=== PATIENT | male | born 1940 | race Caucasian/White ===

== ENCOUNTER 2017-03-09 12:48 | Emergency (ER) | payer MEDICARE, OTHER ==
[2017-03-09 13:00] VITALS: BP 132/68
[2017-03-09] MEDS ORDERED: Sodium Chloride 0.9% 10 ML Syringe FLUSH PRN (13:11)
--- NOTE | 2017-03-09 13:30 | EDM.PDOC ---
ED HPI GENERAL MEDICAL PROBLEM - General Chief Complaint: Upper Extremity Injury/Pain Stated Complaint: RED L EYE, INFECTION ON R HAND Time Seen by Provider: 03/09/17 13:00 Source of Information: Reports: Patient, RN Notes Reviewed - History of Present Illness INITIAL COMMENTS - FREE TEXT/NARRATIVE: 76-year-old male comes in with redness, swelling of right wrist, distal forearm and right elbow. He states he tripped and fell walking in the dark early Saturday morning about 3-1/2 days ago. He states he suffered skin tear injuries to the wrist and elbow. He also did suffer a small laceration over aspect right wrist. The areas of injury wrist and elbow have become much more inflamed, swollen and erythematous over the last 2 days. He now has some slight drainage of fluid from the dorsal and ulnar aspect of the right wrist. He also did suffer quite severe redness of the conjunctiva of his left eye. He states it felt itchy that first day but no further discomfort. No visual difficulty. Headache nausea or vomiting. Right Arm Pain Score (Numeric/FACES): 2 - Related Data Allergies Allergy/AdvReac Type Severity Reaction Status Date / Time No Known Allergies Allergy Verified 09/12/15 16:00 Home Meds: Home Meds Ascorbic Acid [Vitamin C] 500 mg PO DAILY 09/12/15 [History] Aspirin [[place] Aspirin] 81 mg PO DAILY 09/12/15 [History] Cholecalciferol (Vitamin D3) [Vitamin D3] 2,000 units PO DAILY 09/12/15 [History ] Cyanocobalamin/Folic Acid [Vitamin E62-Wymfx Acid] 1 tab PO DAILY 09/12/15 [ History] Diltiazem HCl [Dilt-XR] 240 mg PO DAILY 09/12/15 [History] Docusate Sodium [Colace] 100 mg PO DAILY 09/12/15 [History] Ferrous Sulfate 325 mg PO BID 09/12/15 [History] Furosemide [Furosemide] 100 mg PO DAILY 09/12/15 [History] Metolazone [Metolazone] 2.5 mg PO TUFR 09/12/15 [History] Multivitamin [Multiple Vitamins] 1 tab PO DAILY 09/12/15 [History] [place]-3 Fatty Acids [Fish Oil] 1 tab PO BID 09/12/15 [History] Omeprazole [Omeprazole] 1 tab PO BID 09/12/15 [History] Potassium Chloride 20 meq PO QID 09/12/15 [History] Propranolol HCl 1 tab PO BID 09/12/15 [History] Triamcinolone Acetonide [Triamcinolone Acetonide 0.1% Crm] 1 applic PO BID 09/11 [History] Vitamin E 400 unit PO DAILY 09/12/15 [History] Warfarin Sodium [Warfarin Sodium] 3 mg PO SUMOWETHFRSA 09/12/15 [History] Warfarin Sodium [Warfarin Sodium] 4.5 mg PO TU 09/12/15 [History] Clobetasol Propionate [Temovate] 1 applic TOP BID 03/09/17 [History] Simvastatin [Zocor] 20 mg PO DAILY 03/09/17 [History] Past Medical History HEENT History: Reports: Hard of Hearing, Impaired Vision Cardiovascular History: Reports: Afib, Hypertension, [place], Pacemaker Respiratory History: Reports: Pneumonia, Recurrent Gastrointestinal History: Reports: GERD Neurological History: Reports: TIA Dermatologic History: Reports: Psoriasis - Past Surgical History HEENT Surgical History: Reports: Other (See Below) Other HEENT Surgeries/Procedures: laser surgery for loss of vision Cardiovascular Surgical History: Reports: Valve Replacement GI Surgical History: Reports: Cholecystectomy Social & Family History - Tobacco Use Smoking Status *Q: Never Smoker - Caffeine Use Caffeine Use: Reports: Coffee, Soda - Recreational Drug Use Recreational Drug Use: No Review of Systems - Review of Systems Review Of Systems: See Below Constitutional: Denies: Chills, Fever Eyes: Reports: Other (Severe redness conjunctiva left eye). Denies: Vision Change Ears: Reports: No Symptoms Nose: Reports: No Symptoms Mouth/Throat: Reports: No Symptoms Respiratory: Denies: Shortness of Breath, Pleuritic Chest Pain Cardiovascular: Denies: Chest Pain GI/Abdominal: Denies: Abdominal Pain, Nausea, Vomiting Musculoskeletal: Reports: Other (Erythema swelling right wrist, distal forearm and right elbow) Neurological: Denies: Numbness, Tingling, Trouble Speaking, Weakness ED EXAM, GENERAL - Physical Exam Exam: See Below General Appearance: Alert, No Apparent Distress Eye Exam: Left Eye: Other (Quite severe conjunctival hemorrhage left eye involving all aspects of the conjunctiva) Ears: Normal External Exam Nose: Normal Inspection Throat/Mouth: Normal Inspection Head: No: Facial Swelling, Facial Tenderness Neck: Supple Respiratory/Chest: No Respiratory Distress, Lungs Clear, Normal Breath Sounds Cardiovascular: Irregularly Irregular GI/Abdominal: Soft, Non-Tender Extremities: Normal Range of Motion, Redness (Severe erythema compatible with cellulitis diffusely of the right elbow and also right distal forearm and right wrist with areas of slight weeping right dorsal and lateral wrist), Other (No bony tenderness of the upper or lower extremities). No: Leg Pain Course - Vital Signs Last Recorded V/S: Last Vital Signs Temp 97.7 F 03/09/17 12:58 Pulse 71 03/09/17 12:58 Resp 20 03/09/17 12:58 BP 132/68 03/09/17 12:58 Pulse Ox 95 03/09/17 12:58 - Orders/Labs/Meds Orders: Active Orders 24 hr Category Date Time Status Peripheral IV Care [RC] . DIRECTED Care 03/09/17 13:12 Active CULTURE WOUND [RM] Stat Lab 03/09/17 14:00 Received Peripheral IV Insertion Adult [OM.PC] Stat Oth 03/09/17 13:11 Ordered Labs: Laboratory Tests 03/09/17 03/09/17 03/09/17 Range/Units 13:35 13:35 13:35 WBC 5.40 (4.23-9.07) K/mm3 RBC 3.90 L (4.63-6.08) M/mm3 Hgb 13.7 (13.7-17.5) gm/L Hct 38.7 L (40.1-51.0) % MCV 99.2 H (79.0-92.2) fl MCH 35.1 H (25.7-32.2) pg MCHC 35.4 (32.2-35.5) g/dl RDW Std Deviation 46.2 H (35.1-43.9) fL Plt Count 191 (163-337) K/mm3 MPV 9.0 L (9.4-12.3) fl Neutrophils % (Manual) 71 H (40-60) % Band Neutrophils % 0 (0-10) % Lymphocytes % (Manual) 18 L (20-40) % Atypical Lymphs % 0 % Monocytes % (Manual) 7 (2-10) % Eosinophils % (Manual) 4 (0.8-7.0) % Basophils % (Manual) 0 L (0.2-1.2) Platelet Estimate Adequate Anisocytosis 1+ slight Macrocytosis 1+ slight Ovalocytes 1+ slight RBC Morph Comment Not Reportable PT (8.0-13.0) SECONDS INR Sodium 132 L (136-145) mEq/L Potassium 2.8 L (3.5-5.1) mEq/L Chloride 91 L (98-107) mEq/L Carbon Dioxide 35 H (21-32) mEq/L Anion Gap 8.8 (5-15) BUN 10 (7-18) mg/dL Creatinine 1.0 (0.7-1.3) mg/dL Est Cr Clr Drug Dosing 65.90 mL/min Estimated GFR (MDRD) > 60 (>60) mL/min BUN/Creatinine Ratio 10.0 L (14-18) Glucose 127 H (83-115) mg/dL Calcium 8.9 (8.5-10.1) mg/dL Total Bilirubin 1.9 H (0.2-1.0) mg/dL AST 47 H (15-37) U/L ALT 35 (16-63) U/L Alkaline Phosphatase 139 H (46-116) U/L C-Reactive Protein 3.3 H* (<1.0) mg/dL Total Protein 7.6 (6.4-8.2) g/dl Albumin 3.5 (3.4-5.0) g/dl Globulin 4.1 gm/dL Albumin/Globulin Ratio 0.9 L (1-2) 03/09/17 Range/Units 13:35 WBC (4.23-9.07) K/mm3 RBC (4.63-6.08) M/mm3 Hgb (13.7-17.5) gm/L Hct (40.1-51.0) % MCV (79.0-92.2) fl MCH (25.7-32.2) pg MCHC (32.2-35.5) g/dl RDW Std Deviation (35.1-43.9) fL Plt Count (163-337) K/mm3 MPV (9.4-12.3) fl Neutrophils % (Manual) (40-60) % Band Neutrophils % (0-10) % Lymphocytes % (Manual) (20-40) % Atypical Lymphs % % Monocytes % (Manual) (2-10) % Eosinophils % (Manual) (0.8-7.0) % Basophils % (Manual) (0.2-1.2) Platelet Estimate Anisocytosis Macrocytosis Ovalocytes RBC Morph Comment PT 21.4 H (8.0-13.0) SECONDS INR 1.89 Sodium (136-145) mEq/L Potassium (3.5-5.1) mEq/L Chloride (98-107) mEq/L Carbon Dioxide (21-32) mEq/L Anion Gap (5-15) BUN (7-18) mg/dL Creatinine (0.7-1.3) mg/dL Est Cr Clr Drug Dosing mL/min Estimated GFR (MDRD) (>60) mL/min BUN/Creatinine Ratio (14-18) Glucose (83-115) mg/dL Calcium (8.5-10.1) mg/dL Total Bilirubin (0.2-1.0) mg/dL AST (15-37) U/L ALT (16-63) U/L Alkaline Phosphatase (46-116) U/L C-Reactive Protein (<1.0) mg/dL Total Protein (6.4-8.2) g/dl Albumin (3.4-5.0) g/dl Globulin gm/dL Albumin/Globulin Ratio (1-2) Meds: Medications Discontinued Medications Generic Name Dose Route Start Last Admin Trade Name Freq PRN Reason Stop Dose Admin Doxycycline Hyclate 200 mg 03/09/17 14:02 03/09/17 14:18 Vibramycin PO 03/09/17 14:03 200 mg ONETIME ONE Administration Cefazolin Sodium/Dextrose 1 gm 50 mls @ 100 mls/hr 03/09/17 13:48 03/09/17 14 :10 / Premix IV 03/09/17 14:17 100 mls/hr ONETIME ONE Administration Potassium Chloride 40 meq 03/09/17 14:38 03/09/17 15:38 Klor-Con M20 PO 03/09/17 14:39 40 meq ONETIME ONE Administration Sodium Chloride 10 ml 03/09/17 13:11 03/09/17 13:37 Saline Flush FLUSH 10 ml ASDIRECTED PRN Administration Keep Vein Open - Re-Assessments/Exams Free Text/Narrative Re-Assessment/Exam: 03/09/17 15:47. White blood count normal, no left shift, 0 bands, C-reactive protein very slightly elevated. Have given Ancef 1 g IV. Will continue with cephalexin 500 mg 4 times daily and doxycycline 100 mg twice daily. Her of the mild CP each radial aspect of wrist has been done. He does have a clinic follow- up appointment in 4 days. Discharge instructions as documented Departure - Departure Time of Disposition: 14:50 Disposition: Home, Self-Care 01 Condition: Fair Clinical Impression: Hypokalemia Cellulitis Qualifiers: Site of cellulitis: extremity Site of cellulitis of extremity: upper extremity Laterality: right Qualified Code(s): L03.113 - Cellulitis of right upper limb - Discharge Information Instructions: Cellulitis, Adult, Hypokalemia Referrals: Ricardo Denny MD [Primary Care Provider] - Forms: ED Department Discharge Additional Instructions: Decrease your furosemide to 3 tablets or 60 mg daily for now, continue to avoid salt as best you can, continue your potassium supplement 4 times daily, bananas are also an excellent source of potassium so try eat one or 2 bananas daily if possible, potatoes, other fruit and vegetables also are good sources of potassium. Cephalexin antibiotic 500 mg 4 times daily, your next dose should be this evening at bedtime. doxycycline 100 mg twice daily. Your next dose this evening and then continue that twice daily as prescribed. Continue to change dressing once or twice daily in the same way that we have demonstrated for you here in the ED see Dr. Denny this coming Saturday as planned, return to ED as needed if symptoms worsening in any way. - My Orders Last 24 Hours: My Active Orders 03/09/17 13:11 Peripheral IV Insertion Adult [OM.PC] Stat 03/09/17 13:12 Peripheral IV Care [RC] . DIRECTED 03/09/17 14:00 CULTURE WOUND [RM] Stat - Assessment/Plan Last 24 Hours: My Active Orders 03/09/17 13:11 Peripheral IV Insertion Adult [OM.PC] Stat 03/09/17 13:12 Peripheral IV Care [RC] . DIRECTED 03/09/17 14:00 CULTURE WOUND [RM] Stat
[2017-03-09] MEDS ORDERED: ceFAZolin 1 GM in Premix Bag 1 BAG IV ONE (13:48)
[2017-03-09] MEDS ORDERED: Doxycycline 100 MG Cap PO ONE (14:02)
[2017-03-09] MEDS ORDERED: Potassium Chloride 20 MEQ Tab.ER PO ONE (14:38)
== END 2017-03-09 16:15 | disposition home or self-care (01) ==
LOC: JD.ED 12:48
DX: L03.113 Cellulitis of right upper limb (principal); E87.6 Hypokalemia; I10 Essential (primary) hypertension; I48.91 Unspecified atrial fibrillation; Z79.82 Long term (current) use of aspirin; Z79.01 Long term (current) use of anticoagulants; Z79.899 Other long term (current) drug therapy
CPT/HCPCS: 36415; 80053; 85025; 85610; 86140; 87070; 96365; 99284; A9270; J0690; J7050

== ENCOUNTER 2017-03-15 10:35 | Emergency (ER) | payer MEDICARE, OTHER ==
[2017-03-15 10:55] VITALS: BP 137/81
[2017-03-15] MEDS ORDERED: Sodium Chloride 0.9% 10 ML Syringe FLUSH PRN (11:26)
--- NOTE | 2017-03-15 11:28 | EDM.PDOC ---
ED HPI GENERAL MEDICAL PROBLEM - General Chief Complaint: Upper Extremity Injury/Pain Stated Complaint: HAND INJURY NOT BETTER SENT BY [place] Time Seen by Provider: 03/15/17 10:56 Source of Information: Reports: Patient, RN Notes Reviewed - History of Present Illness INITIAL COMMENTS - FREE TEXT/NARRATIVE: 76-year-old gentleman has been sent over from the clinic with concerns of worsening right arm cellulitis and also worsening generalized body rash which does appear to be an allergic reaction to antibiotics prescribed 6 days ago. He did present to the ED with right wrist and forearm cellulitis 6 days ago. Please see that record for details of that visit. He had fallen 3-4 days prior with laceration injury to the right wrist and deep abrasion injury of the right lateral forearm. He had apparent cellulitis at the time of that visit, was afebrile. There was slight weeping of the laceration area of the wrist. Culture was obtained and he was started on doxycycline 100 mg twice a day, cephalexin 500 mg 4 times a day. He presented to the clinic today with his arm much more red swollen and inflamed. He also has generalized body rash of his trunk upper and lower extremities which does have the appearance of an allergic drug eruption. He is having no chest pain or difficulty breathing. Does have some discomfort of the arm but not severe. He has not had fever or chills. He is not diabetic. - Related Data Allergies Allergy/AdvReac Type Severity Reaction Status Date / Time steroids Allergy Rash Uncoded 03/15/17 10:46 Home Meds: Home Meds Ascorbic Acid [Vitamin C] 500 mg PO DAILY 09/12/15 [History] Aspirin [[place] Aspirin] 81 mg PO DAILY 09/12/15 [History] Cholecalciferol (Vitamin D3) [Vitamin D3] 2,000 units PO DAILY 09/12/15 [History ] Cyanocobalamin/Folic Acid [Vitamin J06-Cazgc Acid] 1 tab PO DAILY 09/12/15 [ History] Diltiazem HCl [Dilt-XR] 240 mg PO DAILY 09/12/15 [History] Docusate Sodium [Colace] 100 mg PO DAILY 09/12/15 [History] Ferrous Sulfate 325 mg PO DAILY 09/12/15 [History] Furosemide [Furosemide] 60 mg PO DAILY 09/12/15 [History] Metolazone [Metolazone] 2.5 mg PO TUFR 09/12/15 [History] Multivitamin [Multiple Vitamins] 1 tab PO DAILY 09/12/15 [History] [place]-3 Fatty Acids [Fish Oil] 1 tab PO BID 09/12/15 [History] Omeprazole [Omeprazole] 1 tab PO BID 09/12/15 [History] Potassium Chloride 20 meq PO QID 09/12/15 [History] Propranolol HCl 1 tab PO BID 09/12/15 [History] Triamcinolone Acetonide [Triamcinolone Acetonide 0.1% Crm] 1 applic PO BID 09/11 [History] Vitamin E 400 unit PO DAILY 09/12/15 [History] Warfarin Sodium [Warfarin Sodium] 3 mg PO SUMOTUTHFRSA 09/12/15 [History] Warfarin Sodium [Warfarin Sodium] 4.5 mg PO WE 09/12/15 [History] Clobetasol Propionate [Temovate] 1 applic TOP BID 03/09/17 [History] Simvastatin [Zocor] 20 mg PO DAILY 03/09/17 [History] Cephalexin [Keflex] 500 mg PO QID 03/15/17 [History] Doxycycline [Vibramycin] 100 mg PO BID 03/15/17 [History] Multivitamin With Minerals. 1 tab PO DAILY 03/15/17 [History] Past Medical History HEENT History: Reports: Hard of Hearing, Impaired Vision Cardiovascular History: Reports: Afib, Hypertension, [place], Pacemaker Respiratory History: Reports: Pneumonia, Recurrent Gastrointestinal History: Reports: GERD Neurological History: Reports: TIA Dermatologic History: Reports: Psoriasis - Past Surgical History HEENT Surgical History: Reports: Other (See Below) Other HEENT Surgeries/Procedures: laser surgery for loss of vision Cardiovascular Surgical History: Reports: Valve Replacement GI Surgical History: Reports: Cholecystectomy Social & Family History - Tobacco Use Smoking Status *Q: Never Smoker - Caffeine Use Caffeine Use: Reports: Coffee, Soda - Recreational Drug Use Recreational Drug Use: No Review of Systems - Review of Systems Review Of Systems: See Below Constitutional: Denies: Chills, Fever Eyes: Reports: Other (He did suffer some conjunctival hemorrhage of his eye from his fall 10-12 days ago. The redness of the sclera is slowly starting to improve) Ears: Reports: No Symptoms Nose: Reports: No Symptoms Mouth/Throat: Reports: No Symptoms Respiratory: Denies: Shortness of Breath, Pleuritic Chest Pain Cardiovascular: Denies: Chest Pain GI/Abdominal: Denies: Abdominal Pain, Nausea, Vomiting Musculoskeletal: Reports: Arm Pain (He does have some discomfort of the arm and forearm but not severe). Denies: Leg Pain, Foot Pain Skin: Reports: Rash (Generalized rash has developed of the upper and lower extremities with underlying chronic patchy areas of psoriasis) Neurological: Denies: Numbness, Tingling, Trouble Speaking, Weakness ED EXAM, GENERAL - Physical Exam Exam: See Below General Appearance: Alert, No Apparent Distress Eye Exam: Bilateral Eye: PERRL Throat/Mouth: Normal Inspection, Normal Oropharynx Head: No: Facial Swelling Neck: Supple, Full Range of Motion. No: Lymphadenopathy (L), Lymphadenopathy (R ) Respiratory/Chest: No Respiratory Distress, Lungs Clear, Normal Breath Sounds Cardiovascular: Regular Rate, Rhythm Extremities: Redness (This generalized erythema of the right hand wrist forearm and arm with diffuse moderate swelling as well). No: Pedal Edema, Leg Pain Neurological: Alert, Oriented, No Motor/Sensory Deficits Skin Exam: Warm, Dry, Rash (Generalized macular rash of his trunk upper and lower extremities compatible with a drug eruption), Other (There are patchy scattered areas of psoriasis as well primarily back upper and lower extremities) Course - Vital Signs Last Recorded V/S: Last Vital Signs Temp 96.8 F 03/15/17 10:46 Pulse 62 03/15/17 10:46 Resp BP 137/81 03/15/17 10:46 Pulse Ox 100 03/15/17 10:46 - Orders/Labs/Meds Orders: Active Orders 24 hr Category Date Time Status Peripheral IV Care [RC] . DIRECTED Care 03/15/17 11:27 Active Peripheral IV Insertion Adult [OM.PC] Stat Oth 03/15/17 11:27 Ordered Meds: Medications Discontinued Medications Generic Name Dose Route Start Last Admin Trade Name Freq PRN Reason Stop Dose Admin Sodium Chloride 10 ml 03/15/17 11:26 03/15/17 11:40 Saline Flush FLUSH 10 ml ASDIRECTED PRN Administration Keep Vein Open - Re-Assessments/Exams Free Text/Narrative Re-Assessment/Exam: 03/15/17 14:11. Due to hx of allergy to steroids, cellulitis getting much worse despite dual oral antibiotic coverage times 6 days and now allergic drug eruption as well this is beyond the comfort level of our Hospitalist on duty at this time. When I discussed this with patient and his son they suggest we go ahead and arrange for imediate transfer to [facility]. I have discussed this with Dr Freitas, Hospitalist on duty for [facility] who does accept patient in transfer. Departure - Departure Time of Disposition: 11:44 Disposition: DC/Tfer to Acute Hospital 02 Condition: Serious Clinical Impression: Allergic drug rash Cellulitis Qualifiers: Site of cellulitis: extremity Site of cellulitis of extremity: upper extremity Laterality: right Qualified Code(s): L03.113 - Cellulitis of right upper limb - Discharge Information Referrals: Ricardo Denny MD [Primary Care Provider] - Forms: ED Department Discharge Additional Instructions: Transfer to [facility] for direct admission as soon as possible, we will leave the IV in so that does not need to be restarted. You may go in the front entrance of [facility] to registration and they will get you directed to your room. - My Orders Last 24 Hours: My Active Orders 03/15/17 11:27 Peripheral IV Care [RC] . DIRECTED Peripheral IV Insertion Adult [OM.PC] Stat - Assessment/Plan Last 24 Hours: My Active Orders 03/15/17 11:27 Peripheral IV Care [RC] . DIRECTED Peripheral IV Insertion Adult [OM.PC] Stat
== END 2017-03-15 12:33 ==
LOC: JD.ED 10:35
DX: L03.113 Cellulitis of right upper limb (principal); I10 Essential (primary) hypertension; K21.9 Gastro-esophageal reflux disease without esophagitis; L40.9 Psoriasis, unspecified; Z79.01 Long term (current) use of anticoagulants; Z79.82 Long term (current) use of aspirin; Z79.899 Other long term (current) drug therapy; Z88.8 Allergy status to other drugs, medicaments and biological substances
CPT/HCPCS: 99284; J7050

== ENCOUNTER 2018-08-07 21:17 | Inpatient (IN) | payer MEDICARE, OTHER ==
--- NOTE | 2018-08-07 21:32 | EDM.PDOC ---
ED HPI GENERAL MEDICAL PROBLEM - General Chief Complaint: Gastrointestinal Problem Stated Complaint: BLEEDING FROM RECTUM Time Seen by Provider: 08/07/18 21:32 - History of Present Illness INITIAL COMMENTS - FREE TEXT/NARRATIVE: 78-year-old male presents emergency room with rectal bleeding. This started about 24 hours ago. The patient has noted some bleeding mostly bright red with BMs however at other times without a BM he has some bleeding often this is associated with gas. He had a similar episode couple years ago workup was unrevealing. The patient is noted some lightheadedness when he gets up and changes position. He has not any chest pain chest pressure breathing difficulties or shortness of breath. Patient is on Coumadin for atrial fibrillation coronary artery disease and valvular heart disease that has been repaired. - Related Data Allergies Allergy/AdvReac Type Severity Reaction Status Date / Time steroids Allergy Rash Uncoded 03/15/17 10:46 Home Meds: Home Meds Ascorbic Acid [Vitamin C] 500 mg PO DAILY 09/12/15 [History] Aspirin [[place] Aspirin] 81 mg PO DAILY 09/12/15 [History] Cholecalciferol (Vitamin D3) [Vitamin D3] 2,000 units PO DAILY 09/12/15 [History ] Cyanocobalamin/Folic Acid [Vitamin M38-[id number] Acid] 1 tab PO DAILY 09/12/15 [ History] Diltiazem HCl [Dilt-XR] 240 mg PO DAILY 09/12/15 [History] Docusate Sodium [Colace] 100 mg PO DAILY 09/12/15 [History] Ferrous Sulfate 325 mg PO DAILY 09/12/15 [History] Furosemide 60 mg PO DAILY 09/12/15 [History] Multivitamin [Multiple Vitamins] 1 tab PO DAILY 09/12/15 [History] Denbo-3 Fatty Acids [Fish Oil] 1 tab PO BID 09/12/15 [History] Omeprazole 1 tab PO BID 09/12/15 [History] Potassium Chloride 20 meq PO QID 09/12/15 [History] Propranolol HCl 1 tab PO BID 09/12/15 [History] Triamcinolone Acetonide [Triamcinolone Acetonide 0.1% Crm] 1 applic PO BID 09/11 [History] Vitamin E 400 unit PO DAILY 09/12/15 [History] Warfarin Sodium 3 mg PO SUMOTUTHFRSA 09/12/15 [History] Warfarin Sodium 4.5 mg PO WE 09/12/15 [History] metOLazone [Metolazone] 2.5 mg PO TUFR 09/12/15 [History] Clobetasol Propionate [Temovate] 1 applic TOP BID 03/09/17 [History] Simvastatin [Zocor] 20 mg PO DAILY 03/09/17 [History] Cephalexin [Keflex] 500 mg PO QID 03/15/17 [History] Doxycycline [Vibramycin] 100 mg PO BID 03/15/17 [History] Multivitamin With Minerals. 1 tab PO DAILY 03/15/17 [History] Past Medical History HEENT History: Reports: Hard of Hearing, Impaired Vision Cardiovascular History: Reports: Afib, Hypertension, [place], Pacemaker Respiratory History: Reports: Pneumonia, Recurrent Gastrointestinal History: Reports: GERD Neurological History: Reports: TIA Dermatologic History: Reports: Psoriasis - Past Surgical History HEENT Surgical History: Reports: Other (See Below) Other HEENT Surgeries/Procedures: laser surgery for loss of vision Cardiovascular Surgical History: Reports: Valve Replacement GI Surgical History: Reports: Cholecystectomy Social & Family History - Caffeine Use Caffeine Use: Reports: Coffee, Soda ED ROS GENERAL - Review of Systems Review Of Systems: See Below Constitutional: Reports: No Symptoms HEENT: Reports: No Symptoms Respiratory: Reports: No Symptoms Cardiovascular: Reports: No Symptoms Endocrine: Reports: No Symptoms GI/Abdominal: Reports: Bloody Stool : Reports: No Symptoms Musculoskeletal: Reports: No Symptoms Skin: Reports: No Symptoms Neurological: Reports: No Symptoms Hematologic/Lymphatic: Reports: Anemia ED EXAM, GI/ABD - Physical Exam Exam: See Below Exam Limited By: No Limitations General Appearance: Alert, No Apparent Distress Head: Atraumatic, Normocephalic Neck: Normal Inspection, Supple, Non-Tender, Full Range of Motion Respiratory/Chest: No Respiratory Distress, Lungs Clear, Normal Breath Sounds Cardiovascular: Regular Rate, Rhythm, No Edema, Systolic Murmur GI/Abdominal Exam: Normal Bowel Sounds, Soft, Non-Tender. No: Guarding, Rigid, Rebound Rectal (Males) Exam: Heme + Stool (Mucousy with bright red blood) Back Exam: Normal Inspection. No: CVA Tenderness (L), CVA Tenderness (R) Extremities: Normal Inspection, Normal Range of Motion, Non-Tender Course - Vital Signs Last Recorded V/S: Last Vital Signs Temp 35.9 C 04/11/19 21:37 Pulse 80 08/07/18 21:37 Resp 20 08/07/18 21:37 BP 102/68 08/07/18 21:37 Pulse Ox 100 08/07/18 21:37 - Orders/Labs/Meds Orders: Active Orders 24 hr Category Date Time Status EKG Documentation Completion [RC] STAT Care 08/07/18 22:26 Active Abdomen Series w Chest 1V [CR] Stat Exams 08/07/18 22:26 Taken Labs: Laboratory Tests 08/07/18 08/07/18 08/07/18 Range/Units 21:50 21:50 21:50 WBC 4.85 (4.23-9.07) K/mm3 RBC 3.04 L (4.63-6.08) M/mm3 Hgb 10.8 L (13.7-17.5) gm/L Hct 31.2 L (40.1-51.0) % MCV 102.6 H (79.0-92.2) fl MCH 35.5 H (25.7-32.2) pg MCHC 34.6 (32.2-35.5) g/dl RDW Std Deviation 47.3 H (35.1-43.9) fL Plt Count 196 (163-337) K/mm3 MPV 9.0 L (9.4-12.3) fl Neutrophils % (Manual) 65 H (40-60) % Band Neutrophils % 0 (0-10) % Lymphocytes % (Manual) 20 (20-40) % Atypical Lymphs % 0 % Monocytes % (Manual) 7 (2-10) % Eosinophils % (Manual) 8 H (0.8-7.0) % Basophils % (Manual) 0 L (0.2-1.2) Toxic Granulation 1+ slight Platelet Estimate Adequate Plt Morphology Comment See note Polychromasia 1+ slight Anisocytosis 1+ slight Macrocytosis 1+ slight RBC Morph Comment Not Reportable PT 20.8 H (9.5-12.1) SECONDS INR 1.93 Sodium 135 L (136-145) mEq/L Potassium 4.3 (3.5-5.1) mEq/L Chloride 100 (98-107) mEq/L Carbon Dioxide 28 (21-32) mEq/L Anion Gap 11.3 (5-15) BUN 13 (7-18) mg/dL Creatinine 0.9 (0.7-1.3) mg/dL Est Cr Clr Drug Dosing 68.74 mL/min Estimated GFR (MDRD) > 60 (>60) mL/min BUN/Creatinine Ratio 14.4 (14-18) Glucose 116 H (83-115) mg/dL Calcium 8.8 (8.5-10.1) mg/dL Total Bilirubin 1.6 H (0.2-1.0) mg/dL AST 37 (15-37) U/L ALT 35 (16-63) U/L Alkaline Phosphatase 100 (46-116) U/L Total Protein 6.5 (6.4-8.2) g/dl Albumin 3.2 L (3.4-5.0) g/dl Globulin 3.3 gm/dL Albumin/Globulin Ratio 1.0 (1-2) - Radiology Interpretation Free Text/Narrative:: Laboratory evaluation his INR is 1.9 hemoglobin 10.8. The patient did have bloody BM here that was all blood root in color 40 50 mL. Patient's case discussed with our hospitalist Dr. Gautheir patient will be placed on observation case discussed with Dr. Key on-call surgeon. Departure - Departure Time of Disposition: 23:17 Disposition: Refer to Observation Clinical Impression: GI hemorrhage, Warfarin-induced coagulopathy - Discharge Information Referrals: Ricardo Denny MD [Primary Care Provider] - Forms: ED Department Discharge - My Orders Last 24 Hours: My Active Orders 08/07/18 22:26 EKG Documentation Completion [RC] STAT Abdomen Series w Chest 1V [CR] Stat - Assessment/Plan Last 24 Hours: My Active Orders 08/07/18 22:26 EKG Documentation Completion [RC] STAT Abdomen Series w Chest 1V [CR] Stat
[2018-08-08] MEDS ORDERED: guaiFENesin 600 MG Tab.ER PO PRN (00:38)
[2018-08-08] MEDS ORDERED: HYDROmorphone 0.5 MG/0.5 ML Syringe IVPUSH PRN (00:41)
[2018-08-08] MEDS ORDERED: Temazepam 7.5 MG Cap PO PRN (00:41)
[2018-08-08] MEDS ORDERED: LORazepam 2 MG/ML SDV IV PRN (00:41)
[2018-08-08] MEDS ORDERED: Metoprolol Tartrate 5 MG/5 ML SDV IVPUSH PRN (00:41)
[2018-08-08] MEDS ORDERED: Acetaminophen/HYDROcodone 325-5 MG Tab PO PRN (00:41)
[2018-08-08] MEDS ORDERED: Albuterol/Ipratropium 3.0-0.5 MG/3 ML Neb Soln NEB PRN (00:41)
[2018-08-08] MEDS ORDERED: hydrALAZINE 20 MG/ML SDV IVPUSH PRN (00:41)
--- NOTE | 2018-08-08 07:15 | CR ---
Abdominal series: Supine and upright views of the abdomen were obtained as well as frontal view of the chest. Comparison: No previous study. Heart is slightly enlarged. Previous sternotomy for CABG is seen. Prosthetic heart valve is noted. Pacemaker is present. Granulomas are seen within the right upper chest. Lungs otherwise are clear with no acute parenchymal change. Scattered gas within nondilated colon and small bowel is seen. This does not appear obstructive. Calcifications are seen within the pelvis compatible with phleboliths. No free air is seen. Surgical clips are noted from prior cholecystectomy. Impression: 1. Incidental findings as noted above. Diagnostic code #2
[2018-08-08] MEDS ORDERED: Non-Formulary Medication 1 Each (Potassium Chloride [Potassium Chloride] 20 MEQ) PO SCH (09:00)
[2018-08-08] MEDS ORDERED: Magnesium Sulfate/Water 2 GM in Premix Bag 1 BAG IV ONE (09:30)
--- NOTE | 2018-08-08 11:57 | PCM.HP ---
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 He had a similar episode in the past with benign work up. He is on Aspirin and Warfarin due to significant cardiac history. He did report at that time some lightheadedness but no chest pain or shortness of breath. He had 2 more rectal bleed overnight at Medical[facility] floor. His initial work up shows a CBC remarkable for RBC of 3.04, Hgb of 10.8, Hct of 31.2, MCV of 102.6, MCH of 35.5, RDW of 47.3, and MPV of 9.0, Neutrophils of 65% , and Eosinophils of 8%. His initial coagulation studies show PT of 20.8 and INR or 1.93. His Chemistry is significant for NA of 135, BS of 116, Total Bilirubin of 1.6, and Albumin of 3.2. His chest x-ray report reads lungs otherwise clear with no acute parenchymal change. - Related Data Allergies/Adverse Reactions: Allergies Allergy/AdvReac Type Severity Reaction Status Date / Time steroids Allergy Rash Uncoded 03/15/17 10:46 Home Medications: Home Meds Ascorbic Acid [Vitamin C] 500 mg PO DAILY 09/12/15 [History] Aspirin [[place] Aspirin] 81 mg PO DAILY 09/12/15 [History] Cholecalciferol (Vitamin D3) [Vitamin D3] 2,000 units PO DAILY 09/12/15 [History ] Cyanocobalamin/Folic Acid [Vitamin F94-[id number] Acid] 1 tab PO DAILY 09/12/15 [ History] Docusate Sodium [Colace] 100 mg PO BID 09/12/15 [History] Furosemide 100 mg PO DAILY 09/12/15 [History] Potassium Chloride 20 meq PO DAILY 09/12/15 [History] Propranolol HCl 40 mg PO BID 09/12/15 [History] Triamcinolone Acetonide [Triamcinolone Acetonide 0.1% Crm] 1 applic PO BID 09/11 [History] Warfarin Sodium 3 mg PO SUMOTUTHFRSA 09/12/15 [History] Warfarin Sodium 4.5 mg PO WE 09/12/15 [History] Simvastatin [Zocor] 20 mg PO DAILY 03/09/17 [History] Multivitamin With Minerals. 1 tab PO DAILY 03/15/17 [History] Spironolactone [Aldactone] 25 mg PO DAILY 08/07/18 [History] diphenhydrAMINE [Benadryl] 25 mg PO Q4H PRN 08/07/18 [History] guaiFENesin [Mucinex] 600 mg PO DAILY PRN 08/07/18 [History] Diltiazem HCl [Cardizem Cd] 240 mg PO DAILY 08/08/18 [History] Past Medical History HEENT History: Reports: Hard of Hearing, Impaired Vision Cardiovascular History: Reports: Afib, Bypass, Hypertension, [place], Pacemaker Respiratory History: Reports: Pneumonia, Recurrent Gastrointestinal History: Reports: GERD, GI Bleed Neurological History: Reports: TIA Dermatologic History: Reports: Psoriasis - Infectious Disease History Infectious Disease History: Reports: Chicken Pox, Measles, Mumps - Past Surgical History HEENT Surgical History: Reports: LASIK, Other (See Below) Other HEENT Surgeries/Procedures: laser surgery for loss of vision Cardiovascular Surgical History: Reports: AICD, Coronary Artery Bypass, Percutaneous Transluminal Angioplasty, Valve Replacement Respiratory Surgical History: Reports: None GI Surgical History: Reports: Cholecystectomy Neurological Surgical History: Reports: None Musculoskeletal Surgical History: Reports: Shoulder Surgery Dermatological Surgical History: Reports: None Social & Family History - Family History Family Medical History: Noncontributory - Tobacco Use Smoking Status *Q: Never Smoker Second Hand Smoke Exposure: No - Caffeine Use Caffeine Use: Reports: Coffee, Tea - Alcohol Use Number of Drinks Per Day: 1 Date of Last Drink: 08/04/18 Time of Last Drink: 20:00 - Recreational Drug Use Recreational Drug Use: No H&P Review of Systems - Review of Systems: Review Of Systems: See Below General: Denies: Fever, Chills, Malaise, Weakness, Fatigue HEENT: Reports: No Symptoms Pulmonary: Denies: Shortness of Breath, Wheezing Cardiovascular: Denies: Chest Pain, Palpitations, Dyspnea on Exertion, Edema, Lightheadedness, Syncope, Claudication, Blood Pressure Problem Gastrointestinal: Reports: Bloody Stool, Flatus. Denies: Abdominal Pain, Anorexia, Black Stool, Constipation, Diarrhea, Decreased Appetite, Difficulty Swallowing, Hematochezia, Melena, Mucous in Stool, Nausea, Stool Incontinence, Vomiting Genitourinary: Reports: No Symptoms Musculoskeletal: Reports: No Symptoms Skin: Denies: Cyanosis, Jaundice, Pallor, Diaphoresis, Bruising, Erythema Psychiatric: Denies: Confusion, Mood Lability, Anxiety, Agitation, Hallucinations Neurological: Denies: Dizziness, Headache, Syncope, Trouble Speaking, Difficulty Walking, Weakness, Gait Disturbance Hematologic/Lymphatic: Reports: Anemia, Easy Bruising Immunologic: Reports: No Symptoms Exam - Exam Exam: See Below - Vital Signs Vital Signs: Last Vital Signs Temp 36.2 C 08/08/18 10:07 Pulse 76 08/08/18 10:07 Resp 20 08/08/18 10:07 BP 101/60 08/08/18 10:07 Pulse Ox 99 08/08/18 10:07 Weight: 83.506 kg - Exam General: Alert, Oriented, Cooperative, Mild Distress HEENT: Conjunctiva Clear, EACs Clear, EOMI, Hearing Intact, Mucosa Moist & [place] , Nares Patent, Normal Nasal Septum, Pupils Equal, Pupils Reactive, TMs Clear, Abnormal Pupils Neck: Supple, Trachea Midline Lungs: Normal Respiratory Effort, Decreased Breath Sounds Cardiovascular: Regular Rate, Regular Rhythm, Systolic Murmur GI/Abdominal Exam: Normal Bowel Sounds, Soft, Non-Tender, No Organomegaly, No Distention, No Abnormal Bruit (Male) Exam: Deferred Rectal (Males) Exam: Deferred Back Exam: Normal Inspection, Decreased Range of Motion Extremities: Normal Inspection, Normal Range of Motion, Non-Tender, No Pedal Edema, Normal Capillary Refill Peripheral Pulses: 2+: Posterior Tibial (L), Posterior Tibial (R), Dorsalis Pedis (L), Dorsalis Pedis (R) Skin: Warm, Dry, Intact, Ecchymosis Neuro Extensive - Mental Status: Oriented x3, Normal Cognition, Memory Intact Neuro Extensive - Motor, Sensory, Reflexes: CN II-XII Intact, Normal Gait Psychiatric: Alert, Normal Affect, Normal Mood - Patient Data Lab Results Last 24 hrs: Laboratory Results - last 24 hr 08/07/18 08/07/18 08/07/18 Range/Units 21:50 21:50 21:50 WBC 4.85 (4.23-9.07) K/mm3 RBC 3.04 L (4.63-6.08) M/mm3 Hgb 10.8 L (13.7-17.5) gm/L Hct 31.2 L (40.1-51.0) % MCV 102.6 H (79.0-92.2) fl MCH 35.5 H (25.7-32.2) pg MCHC 34.6 (32.2-35.5) g/dl RDW Std Deviation 47.3 H (35.1-43.9) fL Plt Count 196 (163-337) K/mm3 MPV 9.0 L (9.4-12.3) fl Neut % (Auto) (34.0-67.9) % Lymph % (Auto) (21.8-53.1) % [place] % (Auto) (5.3-12.2) % Eos % (Auto) (0.8-7.0) Baso % (Auto) (0.1-1.2) % Neut # (Auto) (1.78-5.38) K/mm3 Lymph # (Auto) (1.32-3.57) K/mm3 [place] # (Auto) (0.30-0.82) K/mm3 Eos # (Auto) (0.04-0.54) K/mm3 Baso # (Auto) (0.01-0.08) K/mm3 Neutrophils % (Manual) 65 H (40-60) % Band Neutrophils % 0 (0-10) % Lymphocytes % (Manual) 20 (20-40) % Atypical Lymphs % 0 % Monocytes % (Manual) 7 (2-10) % Eosinophils % (Manual) 8 H (0.8-7.0) % Basophils % (Manual) 0 L (0.2-1.2) Toxic Granulation 1+ slight Platelet Estimate Adequate Plt Morphology Comment See note Polychromasia 1+ slight Anisocytosis 1+ slight Macrocytosis 1+ slight RBC Morph Comment Not Reportable PT 20.8 H (9.5-12.1) SECONDS INR 1.93 Sodium 135 L (136-145) mEq/L Potassium 4.3 (3.5-5.1) mEq/L Chloride 100 (98-107) mEq/L Carbon Dioxide 28 (21-32) mEq/L Anion Gap 11.3 (5-15) BUN 13 (7-18) mg/dL Creatinine 0.9 (0.7-1.3) mg/dL Est Cr Clr Drug Dosing 68.74 mL/min Estimated GFR (MDRD) > 60 (>60) mL/min BUN/Creatinine Ratio 14.4 (14-18) Glucose 116 H (83-115) mg/dL Calcium 8.8 (8.5-10.1) mg/dL Magnesium (1.8-2.4) mg/dl Total Bilirubin 1.6 H (0.2-1.0) mg/dL AST 37 (15-37) U/L ALT 35 (16-63) U/L Alkaline Phosphatase 100 (46-116) U/L Total Protein 6.5 (6.4-8.2) g/dl Albumin 3.2 L (3.4-5.0) g/dl Globulin 3.3 gm/dL Albumin/Globulin Ratio 1.0 (1-2) 08/08/18 08/08/18 08/08/18 Range/Units 05:45 05:45 05:45 WBC 4.61 (4.23-9.07) K/mm3 RBC 2.61 L (4.63-6.08) M/mm3 Hgb 9.0 L (13.7-17.5) gm/L Hct 26.8 L (40.1-51.0) % MCV 102.7 H (79.0-92.2) fl MCH 34.5 H (25.7-32.2) pg MCHC 33.6 (32.2-35.5) g/dl RDW Std Deviation 46.9 H (35.1-43.9) fL Plt Count 162 L (163-337) K/mm3 MPV 8.9 L (9.4-12.3) fl Neut % (Auto) 49.7 (34.0-67.9) % Lymph % (Auto) 34.3 (21.8-53.1) % Stanley % (Auto) 11.9 (5.3-12.2) % Eos % (Auto) 3.7 (0.8-7.0) Baso % (Auto) 0.2 (0.1-1.2) % Neut # (Auto) 2.29 (1.78-5.38) K/mm3 Lymph # (Auto) 1.58 (1.32-3.57) K/mm3 Stanley # (Auto) 0.55 (0.30-0.82) K/mm3 Eos # (Auto) 0.17 (0.04-0.54) K/mm3 Baso # (Auto) 0.01 (0.01-0.08) K/mm3 Neutrophils % (Manual) (40-60) % Band Neutrophils % (0-10) % Lymphocytes % (Manual) (20-40) % Atypical Lymphs % % Monocytes % (Manual) (2-10) % Eosinophils % (Manual) (0.8-7.0) % Basophils % (Manual) (0.2-1.2) Toxic Granulation Platelet Estimate Plt Morphology Comment Polychromasia Anisocytosis Macrocytosis RBC Morph Comment PT 18.9 H (9.5-12.1) SECONDS INR 1.75 Sodium 136 (136-145) mEq/L Potassium 4.2 (3.5-5.1) mEq/L Chloride 102 (98-107) mEq/L Carbon Dioxide 26 (21-32) mEq/L Anion Gap 12.2 (5-15) BUN 13 (7-18) mg/dL Creatinine 0.8 (0.7-1.3) mg/dL Est Cr Clr Drug Dosing 77.33 mL/min Estimated GFR (MDRD) > 60 (>60) mL/min BUN/Creatinine Ratio 16.3 (14-18) Glucose 103 (83-115) mg/dL Calcium 8.2 L (8.5-10.1) mg/dL Magnesium 1.6 L (1.8-2.4) mg/dl Total Bilirubin (0.2-1.0) mg/dL AST (15-37) U/L ALT (16-63) U/L Alkaline Phosphatase (46-116) U/L Total Protein (6.4-8.2) g/dl Albumin (3.4-5.0) g/dl Globulin gm/dL Albumin/Globulin Ratio (1-2) Result Diagrams: 08/08/18 20:07 08/08/18 05:45 Problem List Initiated/Reviewed/Updated: Yes Orders Last 24hrs: Active Orders 24 hr Category Date Time Status Admission Status [Patient Status] [ADT] Routine ADT 08/08/18 11:32 Active Antiembolic Devices [RC] BID Care 08/08/18 00:52 Active Cardiac Monitoring [RC] CONTINUOUS Care 08/08/18 00:42 Active Height and Weight [RC] 04 Care 08/08/18 00:41 Active Intake and Output [RC] 04,16 Care 08/08/18 00:42 Active Notify Provider Consults [RC] DAILY Care 08/08/18 00:43 Active Oxygen Therapy [RC] PRN Care 08/08/18 00:41 Active RT Aerosol Therapy [RC] ASDIRECTED Care 08/08/18 00:43 Active Up With Assistance [RC] DAILY Care 08/08/18 00:41 Active Up ad Lisa [RC] DAILY Care 08/08/18 00:41 Active VTE/DVT Education [RC] DAILY Care 08/08/18 00:41 Active Vital Signs [RC] 00,04,08,12,16,20 Care 08/08/18 00:41 Active Consult to Case Management/It Programmer Analyst [CONS] Cons 08/08/18 00:41 Active Routine Consult to Physician [CONS] Routine Cons 08/08/18 00:41 Active Consult to Spiritual Care [CONS] Routine Cons 08/08/18 00:41 Active OT Evaluation and Treatment [CONS] Routine Cons 08/08/18 00:41 Active PT Evaluation and Treatment [CONS] Routine Cons 08/08/18 00:41 Active Heart Healthy Diet [DIET] Diet 08/08/18 Breakfast Active BASIC METABOLIC PANEL,BMP [CHEM] AM Lab 08/09/18 05:11 Ordered BASIC METABOLIC PANEL,BMP [CHEM] AM Lab 08/10/18 05:11 Ordered BASIC METABOLIC PANEL,BMP [CHEM] AM Lab 08/11/18 05:11 Ordered CBC WITH AUTO DIFF [HEME] AM Lab 08/09/18 05:11 Ordered CBC WITH AUTO DIFF [HEME] AM Lab 08/10/18 05:11 Ordered CBC WITH AUTO DIFF [HEME] AM Lab 08/11/18 05:11 Ordered INR,PT,PROTHROMBIN TIME [COAG] AM Lab 08/09/18 05:11 Ordered INR,PT,PROTHROMBIN TIME [COAG] AM Lab 08/10/18 05:11 Ordered INR,PT,PROTHROMBIN TIME [COAG] AM Lab 08/11/18 05:11 Ordered MAGNESIUM [CHEM] AM Lab 08/09/18 05:11 Ordered MAGNESIUM [CHEM] AM Lab 08/10/18 05:11 Ordered MAGNESIUM [CHEM] AM Lab 08/11/18 05:11 Ordered Acetaminophen/HYDROcodone [[place] 325-5 MG] Med 08/08/18 00:41 Active 1 tab PO Q4H PRN Albuterol/Ipratropium [DuoNeb 3.0-0.5 MG/3 ML] Med 08/08/18 00:41 Active 3 ml NEB Q4H PRN Cyanocobalamin (Vitamin B12) [Vitamin B12] Med 08/08/18 12:00 Active 500 mcg PO DAILY Diltiazem [Dilacor XR] Med 08/08/18 12:00 Active 240 mg PO DAILY Docusate Sodium [Colace] Med 08/08/18 12:00 Active 100 mg PO DAILY Folic Acid Med 08/08/18 12:00 Active 0.5 mg PO DAILY Furosemide [Lasix] Med 08/08/18 12:00 Active 100 mg PO DAILY HYDROmorphone [Dilaudid] Med 08/08/18 00:41 Active 0.25 mg IVPUSH Q2H PRN LORazepam [Ativan] Med 08/08/18 00:41 Active 0.5 mg IV Q6H PRN Metoprolol Tartrate [Lopressor] Med 08/08/18 00:41 Active 5 mg IVPUSH Q4H PRN Pharmacy to Dose - Magnesium R [Pharmacy to Dose - Med 08/08/18 00:45 Active Magnesium Replacement] 0 dose .XX ASDIRECTED PRN Pharmacy to Dose - Potassium R [Pharmacy to Dose - Med 08/08/18 00:45 Active Potassium Replacement] 0 dose .XX ASDIRECTED PRN Propranolol [Inderal] Med 08/08/18 12:00 Active 40 mg PO BID Simvastatin [Zocor] Med 08/08/18 09:00 Pending 20 mg PO DAILY Spironolactone [Aldactone] Med 08/08/18 09:00 Pending 25 mg PO DAILY Temazepam [Restoril] Med 08/08/18 00:41 Active 7.5 mg PO BEDTIME PRN Triamcinolone Acetonide [Triamcinolone Acetonide 0.1% Med 08/08/18 09:00 Pending Crm] DOSE gm TOP BID guaiFENesin [Mucinex] Med 08/08/18 00:38 Active 600 mg PO DAILY PRN hydrALAZINE [Apresoline] Med 08/08/18 00:41 Active 20 mg IVPUSH Q4H PRN SCD [Sequential Compression Device] [OM.PC] Routine Oth 08/08/18 00:52 Ordered Resuscitation Status Routine Resus Stat 08/08/18 02:05 Ordered Medication Orders Hydrocodone Bitart/Acetaminophen ([place] 325-5 Mg) 1 tab PO Q4H PRN PRN Reason: Pain (moderate 4-6) Albuterol/Ipratropium (Duoneb 3.0-0.5 Mg/3 Ml) 3 ml NEB Q4H PRN PRN Reason: Shortness Of Breath/wheezing Cyanocobalamin (Vitamin B12) 500 mcg PO DAILY ROBYN Diltiazem HCl (Dilacor Xr) 240 mg PO DAILY ROBYN Docusate Sodium (Colace) 100 mg PO DAILY ROBYN Folic Acid (Folic Acid) 0.5 mg PO DAILY ROBYN Furosemide (Lasix) 100 mg PO DAILY ROBYN Guaifenesin (Mucinex) 600 mg PO DAILY PRN PRN Reason: Allergies Hydralazine HCl (Apresoline) 20 mg IVPUSH Q4H PRN PRN Reason: Hypertension Hydromorphone HCl (Dilaudid) 0.25 mg IVPUSH Q2H PRN PRN Reason: Pain (severe 7-10) Lorazepam (Ativan) 0.5 mg IV Q6H PRN PRN Reason: Anxiety Magnesium Sulfate (Pharmacy To Dose - Magnesium Replacement) 0 dose .XX ASDIRECTED PRN PRN Reason: RX TO WATCH MAG Metoprolol Tartrate (Lopressor) 5 mg IVPUSH Q4H PRN PRN Reason: Tachycardia Potassium Chloride (Pharmacy To Dose - Potassium Replacement) 0 dose .XX ASDIRECTED PRN PRN Reason: RX TO WATCH K Propranolol HCl (Inderal) 40 mg PO BID ROBYN Simvastatin (Zocor) 20 mg PO DAILY ROBYN Spironolactone (Aldactone) 25 mg PO DAILY ROBYN Temazepam (Restoril) 7.5 mg PO BEDTIME PRN PRN Reason: Sleep Triamcinolone Acetonide (Triamcinolone Acetonide 0.1% Crm) gm TOP BID ROBYN Assessment/Plan Comment:: Assessment/Plan: Acute: GI Bleed - Hgb 10.8-->9.0 - Bright red blood with bowel movements - Carries previous hx/o in the past with unrevealing work up - On Warfarin or Chronic Atrial Fibrillation - Heme+ Stool (Mucous with bright red blood) performed by ED provider - Hold Warfarin for now - Monitor H/H - Consult Dr. 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 Key SW/CM for d/c planning Code status: 1
[2018-08-08] MEDS ORDERED: Diltiazem 240 MG Cap.ER PO SCH ×2 (12:00→18:00)
[2018-08-08] MEDS: Cyanocobalamin (Vitamin B12) 1,000 MCG Tab PO SCH (13:33)
[2018-08-08] MEDS: Docusate Sodium 100 MG Cap PO SCH (13:33)
[2018-08-08] MEDS: Propranolol 40 MG Tab PO SCH ×2 (13:34→21:57)
[2018-08-08] MEDS: Spironolactone 25 MG Tab PO SCH (13:34)
[2018-08-08] MEDS: Simvastatin 20 MG Tab PO SCH (13:34)
[2018-08-08] MEDS: Furosemide 20 MG Tab PO SCH (13:35)
[2018-08-08] MEDS: Folic Acid 1 MG Tab PO SCH (13:36)
--- NOTE | 2018-08-08 20:21 | CONS ---
CONSULTING PHYSICIAN: Anton Key MD DATE OF CONSULTATION: 08/08/2018 REQUESTING PHYSICIAN: Becca Gauthier MD. REASON FOR CONSULTATION: GI bleed. HISTORY OF PRESENT ILLNESS: Mr. Gonzalez is a 78-year-old male, on Coumadin and aspirin, who presented last night with a GI bleed. He said initially his stool was black mixed with bright red blood. This started yesterday afternoon into the evening. He has had about 7 bowel movements since the initial onset of his symptoms. What has followed were smaller bowel movements of bright red blood. His last bowel movement was approximately 2-1/2 hours ago consisting of a small amount of bright red blood. Each subsequent bowel movement appears to be smaller than the last. His Coumadin has been stopped as well as his aspirin. He has not been anticoagulated because of his atrial fibrillation with the valve. He says he does not feel poorly other than feeling a bit weak. He has had no tachycardia or hypotension during his hospital stay. He has normal mentation. His previous history includes a previous episode of GI bleed 2 years ago, which resulted in an immediate colonoscopy and upper endoscopy, followed by a subsequent colonoscopy. Less than 2 years ago, he is not sure of the dates. He has recently started back to work. PRIOR MEDICAL HISTORY: 1. Atrial fibrillation. 2. Coronary artery bypass. 3. Hypertension. 4. Myocardial infarction. 5. Pacemaker placement. 6. Pneumonia. 7. Gastroesophageal reflux disease. 8. GI bleed. 9. Transient ischemic attacks. 10.Psoriasis. PRIOR SURGICAL HISTORY: 1. The patient had LASIK surgery. 2. Pacemaker placement. 3. Open heart surgery for bypass. 4. Placement of a valve, which appears to be tricuspid. 5. Cholecystectomy. 6. Left shoulder surgery. MEDICATIONS: Include 1. Warfarin. 2. Aspirin. The remainder of his list was reviewed with the patient and confirmed. Please see the medical reconciliation form. SOCIAL HISTORY: Unremarkable. He is a nonsmoker and nondrinker. He denies illicit drugs. 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 FAMILY HISTORY: Unremarkable. He denies any family history of colon cancer. OBJECTIVE: VITAL SIGNS: Temperature of 97.2, pulse of 87, respirations of 16, blood pressure of 112/56, and saturating at 98%. HEAD AND NECK: Normocephalic and atraumatic. He has some pallor. Neck is supple with full range of motion. PULMONARY: Lungs are clear to auscultation bilaterally. HEART: He has an irregularly irregular rhythm with added heart sounds consistent with the valve. There is a pacemaker/AICD is in place. ABDOMEN: Soft, nontender, and nondistended. No palpable masses. No visible surgical scars. No hernia. EXTREMITIES: No clubbing, cyanosis, or edema. No calf tenderness. INTEGUMENTARY: He is somewhat pale. No rashes. No lesions. No petechiae. No jaundice. LABORATORY DATA: I reviewed his labs. His hemoglobin this morning was 9, it is down from 10.8 yesterday, and some of that certainly is dilutional. INR has dropped from 1.93 to 1.75 today. Chemistry is unremarkable. ASSESSMENT: Likely lower gastrointestinal bleed, but upper gastrointestinal bleed is not ruled out. PLAN: He has already had a meal today consisting of solid food including eggs and apples. He said he had an omelette this morning for breakfast. He is hemodynamically stable. He has had no tachycardia. No suppressed mentation. No hypotension. I think we can reasonably watch him. We would recommend we avoid anticoagulation over the short term. At some point, his anticoagulation will need to be re-started, but re-thought. He is not a candidate for a Xa inhibitor because of his valve replacement. If he continues to bleed or his hemoglobin drops below 8 or becomes hemodynamically unstable, I would strongly recommend that we simply transfer him, so that he can undergo angiography to isolate the offending vessel. This could also be therapeutic as the offending vessel could be coiled. Surgery is not an option until the location of bleeding is identified. I cannot scope him at this point because he has had a full meal today, so the earliest we could scope him would be Saturday. By then, certainly, he would have stopped bleeding. In the meantime, serial CBCs and type and cross would be helpful. MMODAL /[id number]
[2018-08-08] MEDS: Triamcinolone Acetonide 0.1% Crm 15 GM Tube TOP SCH (21:57)
[2018-08-09] MEDS ORDERED: diphenhydrAMINE 25 MG Cap PO PRN (07:14)
[2018-08-09] MEDS: Diltiazem 240 MG Cap.ER PO SCH (08:43)
[2018-08-09] MEDS: Multivitamins,Therapeutic Tab PO SCH (08:43)
[2018-08-09] MEDS: Furosemide 20 MG Tab PO SCH (08:44)
[2018-08-09] MEDS: Cholecalciferol (Vitamin D3) 1,000 Unit Tab PO SCH (08:44)
[2018-08-09] MEDS: Ascorbic Acid 500 MG Tab PO SCH (08:44)
[2018-08-09] MEDS: Spironolactone 25 MG Tab PO SCH (08:44)
[2018-08-09] MEDS: Folic Acid 1 MG Tab PO SCH (08:44)
[2018-08-09] MEDS: Docusate Sodium 100 MG Cap PO SCH (08:44)
[2018-08-09] MEDS: Cyanocobalamin (Vitamin B12) 1,000 MCG Tab PO SCH (08:44)
[2018-08-09] MEDS: Simvastatin 20 MG Tab PO SCH (08:44)
[2018-08-09] MEDS: Triamcinolone Acetonide 0.1% Crm 15 GM Tube TOP SCH ×2 (08:45→21:07)
[2018-08-09] MEDS: Propranolol 40 MG Tab PO SCH ×2 (09:02→21:07)
--- NOTE | 2018-08-09 12:52 | PN ---
DATE OF SERVICE: 08/09/2018 SUBJECTIVE: It looks like the patient's GI bleed has probably settled down. His hemoglobin last night was 8.6, now 8.1. He has had no further bowel movements since 8 p.m. last night. He says he feels better. Today, he is receiving infusions of iron. He has had no transfusions. His vitals have remained within normal limits. OBJECTIVE: GENERAL: He is alert. He looks less pale today than yesterday, in no obvious distress. VITAL SIGNS: Temperature 98.1, pulse 61, respirations 16, blood pressure 110/40. HEAD AND NECK: Normocephalic and atraumatic. He is anicteric. CHEST: Clear to auscultation. HEART: Irregularly irregular. ABDOMEN: Soft, nontender, and nondistended. EXTREMITIES: No clubbing, cyanosis, or edema. LABORATORY DATA: Labs showed a hemoglobin of 8.1 today and down from 8.6. INR is dropping now, 1.3 down from 1.75 yesterday. ASSESSMENT: Gastrointestinal bleed, likely lower though, upper gastrointestinal bleed is not ruled out. PLAN: I will plan on doing a bowel prep on him tomorrow, and we will do upper and lower endoscopy. I fully informed him of the major risks, benefits, and alternatives. The risks include, but are not limited to perforation of GI tract, aspiration, pneumonia, laryngeal spasm, bleeding, recurrent surgery, and recurrence of the bleeding as well as many other. He gave informed consent. SUSHIL /[id number]
--- NOTE | 2018-08-09 13:22 | PCM.PN ---
- General Info Date of Service: 08/09/18 Functional Status: Reports: Pain Controlled, Tolerating Diet, Ambulating, Urinating - Review of Systems General: Reports: Weakness HEENT: Reports: No Symptoms Pulmonary: Reports: No Symptoms Cardiovascular: Reports: No Symptoms Gastrointestinal: Reports: No Symptoms Genitourinary: Reports: No Symptoms Musculoskeletal: Reports: No Symptoms Skin: Reports: No Symptoms Neurological: Reports: No Symptoms Psychiatric: Reports: No Symptoms - Patient Data Vitals - Most Recent: Last Vital Signs Temp 36.2 C 08/09/18 12:04 Pulse 68 08/09/18 12:04 Resp 16 08/09/18 12:04 BP 93/34 L 08/09/18 12:04 Pulse Ox 96 08/09/18 12:04 Weight - Most Recent: 83.416 kg I&O - Last 24 Hours: Intake & Output 08/08/18 08/09/18 08/09/18 22:59 06:59 14:59 Intake Total 1260 600 240 Output Total 500 750 Balance 760 -150 240 Lab Results Last 24 Hours: Laboratory Results - last 24 hr 08/08/18 08/09/18 08/09/18 Range/Units 20:07 05:45 05:45 WBC 5.76 5.95 (4.23-9.07) K/mm3 RBC 2.43 L 2.31 L (4.63-6.08) M/mm3 Hgb 8.6 L 8.1 L (13.7-17.5) gm/L Hct 25.2 L 24.1 L (40.1-51.0) % MCV 103.7 H 104.3 H (79.0-92.2) fl MCH 35.4 H 35.1 H (25.7-32.2) pg MCHC 34.1 33.6 (32.2-35.5) g/dl RDW Std Deviation 47.7 H 48.3 H (35.1-43.9) fL Plt Count 171 165 (163-337) K/mm3 MPV 8.9 L 9.6 (9.4-12.3) fl Neut % (Auto) 68.4 H 57.3 (34.0-67.9) % Lymph % (Auto) 19.4 L 30.6 (21.8-53.1) % [place] % (Auto) 10.2 10.4 (5.3-12.2) % Eos % (Auto) 1.4 1.3 (0.8-7.0) Baso % (Auto) 0.3 0.2 (0.1-1.2) % Neut # (Auto) 3.93 3.41 (1.78-5.38) K/mm3 Lymph # (Auto) 1.12 L 1.82 (1.32-3.57) K/mm3 [place] # (Auto) 0.59 0.62 (0.30-0.82) K/mm3 Eos # (Auto) 0.08 0.08 (0.04-0.54) K/mm3 Baso # (Auto) 0.02 0.01 (0.01-0.08) K/mm3 PT (9.5-12.1) SECONDS INR Sodium 136 (136-145) mEq/L Potassium 3.8 (3.5-5.1) mEq/L Chloride 100 (98-107) mEq/L Carbon Dioxide 29 (21-32) mEq/L Anion Gap 10.8 (5-15) BUN 16 (7-18) mg/dL Creatinine 1.0 (0.7-1.3) mg/dL Est Cr Clr Drug Dosing 61.86 mL/min Estimated GFR (MDRD) > 60 (>60) mL/min BUN/Creatinine Ratio 16.0 (14-18) Glucose 112 (83-115) mg/dL Calcium 7.9 L (8.5-10.1) mg/dL Magnesium 1.8 (1.8-2.4) mg/dl Iron (65-175) ug/dL TIBC (100-400) ug/dL % Saturation (20-55) % Transferrin (202-364) mg/dL Blood Type Gel Antibody Screen 08/09/18 08/09/18 08/09/18 Range/Units 05:45 05:45 05:45 WBC (4.23-9.07) K/mm3 RBC (4.63-6.08) M/mm3 Hgb (13.7-17.5) gm/L Hct (40.1-51.0) % MCV (79.0-92.2) fl MCH (25.7-32.2) pg MCHC (32.2-35.5) g/dl RDW Std Deviation (35.1-43.9) fL Plt Count (163-337) K/mm3 MPV (9.4-12.3) fl Neut % (Auto) (34.0-67.9) % Lymph % (Auto) (21.8-53.1) % [place] % (Auto) (5.3-12.2) % Eos % (Auto) (0.8-7.0) Baso % (Auto) (0.1-1.2) % Neut # (Auto) (1.78-5.38) K/mm3 Lymph # (Auto) (1.32-3.57) K/mm3 [place] # (Auto) (0.30-0.82) K/mm3 Eos # (Auto) (0.04-0.54) K/mm3 Baso # (Auto) (0.01-0.08) K/mm3 PT 15.1 H (9.5-12.1) SECONDS INR 1.39 Sodium (136-145) mEq/L Potassium (3.5-5.1) mEq/L Chloride (98-107) mEq/L Carbon Dioxide (21-32) mEq/L Anion Gap (5-15) BUN (7-18) mg/dL Creatinine (0.7-1.3) mg/dL Est Cr Clr Drug Dosing mL/min Estimated GFR (MDRD) (>60) mL/min BUN/Creatinine Ratio (14-18) Glucose (83-115) mg/dL Calcium (8.5-10.1) mg/dL Magnesium (1.8-2.4) mg/dl Iron 61 L (65-175) ug/dL TIBC 240 (100-400) ug/dL % Saturation 25 (20-55) % Transferrin 192 L (202-364) mg/dL Blood Type A POSITIVE Gel Antibody Screen Negative Med Orders - Current: Current Medications Hydrocodone Bitart/Acetaminophen ([facility] [place] 325-5 Mg) 1 tab PO Q4H PRN PRN Reason: Pain (moderate 4-6) Albuterol/Ipratropium (Duoneb 3.0-0.5 Mg/3 Ml) 3 ml NEB Q4H PRN PRN Reason: Shortness Of Breath/wheezing Ascorbic Acid (Vitamin C) 500 mg PO DAILY [facility] Last Admin: 08/09/18 08:44 Dose: 500 mg Bisacodyl (Dulcolax) 10 mg PO DAILY [facility] Cholecalciferol (Vitamin D3) 2,000 units PO DAILY [facility] Last Admin: 08/09/18 08:44 Dose: 2,000 units Cyanocobalamin (Vitamin B12) 500 mcg PO DAILY [facility] Last Admin: 08/09/18 08:44 Dose: 500 mcg Diltiazem HCl (Dilacor Xr) 240 mg PO DAILY [facility] Last Admin: 08/09/18 08:43 Dose: 240 mg Diphenhydramine HCl (Benadryl) 25 mg PO Q4H PRN PRN Reason: Itching Docusate Sodium (Colace) 100 mg PO DAILY [facility] Last Admin: 08/09/18 08:44 Dose: 100 mg Folic Acid (Folic Acid) 0.5 mg PO DAILY [facility] Last Admin: 08/09/18 08:44 Dose: 0.5 mg Furosemide (Lasix) 100 mg PO DAILY [facility] Last Admin: 08/09/18 08:44 Dose: 100 mg Guaifenesin (Mucinex) 600 mg PO DAILY PRN PRN Reason: Allergies Hydralazine HCl (Apresoline) 20 mg IVPUSH Q4H PRN PRN Reason: Hypertension Hydromorphone HCl (Dilaudid) 0.25 mg IVPUSH Q2H PRN PRN Reason: Pain (severe 7-10) Sodium Chloride (Normal Saline) 1,000 mls @ 50 mls/hr IV ASDIRECTED [facility] Lorazepam (Ativan) 0.5 mg IV Q6H PRN PRN Reason: Anxiety Metoprolol Tartrate (Lopressor) 5 mg IVPUSH Q4H PRN PRN Reason: Tachycardia Multivitamins (Thera) 1 each PO DAILY [facility] Last Admin: 08/09/18 08:43 Dose: 1 each Polyethylene Glycol/Electrolytes (Golytely) 4,000 ml PO ONETIME ONE Stop: 08/10/18 18:01 Propranolol HCl (Inderal) 40 mg PO BID [facility] Last Admin: 08/09/18 09:02 Dose: Not Given Simvastatin (Zocor) 20 mg PO DAILY [facility] Last Admin: 08/09/18 08:44 Dose: 20 mg Spironolactone (Aldactone) 25 mg PO DAILY [facility] Last Admin: 08/09/18 08:44 Dose: 25 mg Temazepam (Restoril) 7.5 mg PO BEDTIME PRN PRN Reason: Sleep Triamcinolone Acetonide (Triamcinolone Acetonide 0.1% Crm) 0 gm TOP BID [facility] Last Admin: 08/09/18 08:45 Dose: Not Given Discontinued Medications Diltiazem HCl (Dilacor Xr) 240 mg PO DAILY [facility] Last Admin: 08/08/18 13:47 Dose: Not Given Diltiazem HCl (Dilacor Xr) 240 mg PO 1800 [facility] Last Admin: 08/08/18 17:43 Dose: 240 mg Magnesium Sulfate 2 gm/ Premix 50 mls @ 25 mls/hr IV ONETIME ONE Stop: 08/08/18 11:29 Last Admin: 08/08/18 11:13 Dose: 25 mls/hr Ferric Sodium Gluconate Complex 250 mg/ Sodium Chloride 120 mls @ 60 mls/hr IV ONETIME ONE Stop: 08/09/18 11:59 Last Admin: 08/09/18 10:10 Dose: 60 mls/hr Magnesium Sulfate (Pharmacy To Dose - Magnesium Replacement) 0 dose .XX ASDIRECTED PRN PRN Reason: RX TO WATCH MAG Potassium Chloride (Pharmacy To Dose - Potassium Replacement) 0 dose .XX ASDIRECTED PRN PRN Reason: RX TO WATCH K - Exam Quality Assessment: DVT Prophylaxis General: Alert, Oriented, Cooperative, No Acute Distress HEENT: Pupils Equal, Pupils Reactive, EOMI Neck: Trachea Midline, No JVD Lungs: Normal Respiratory Effort Cardiovascular: Regular Rate, Irregular Rhythm GI/Abdominal Exam: Normal Bowel Sounds, Soft, Non-Tender, No Organomegaly, No Distention (Male) Exam: Deferred Back Exam: Normal Inspection Extremities: Normal Inspection, Non-Tender, Normal Capillary Refill Skin: Warm Neurological: No New Focal Deficit Psy/Mental Status: Alert, Normal Affect, Normal Mood - Problem List Review Problem List Initiated/Reviewed/Updated: Yes - My Orders Last 24 Hours: My Active Orders 08/09/18 12:47 PATIENT RETYPE [BBK] Routine 08/09/18 18:00 HEMOGLOBIN/HEMATOCRIT,HH [HEME] Timed - Plan Plan:: Assessment/Plan: Acute: GI Bleed - Hgb 10.8-->9.0, keep > 9.0 - Bright red blood with bowel movements - Carries previous hx/o in the past with unrevealing work up - On Warfarin or Chronic Atrial Fibrillation - Heme+ Stool (Mucous with bright red blood) performed by ED provider - Hold Warfarin for now - Monitor H/H - Consult Dr. Key for further evaluation-->colonoscopy on 08/11/18. Subtherapeutic INR - INR 1.93 -->1.75 - Has had 2 more episode last night since admission - Daily INR Hypomagnesemia--replace as needed. 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 Key SW/CM for d/c planning Code status: 1
[2018-08-10] MEDS: Furosemide 20 MG Tab PO SCH (08:36)
[2018-08-10] MEDS: Ascorbic Acid 500 MG Tab PO SCH (08:38)
[2018-08-10] MEDS: Diltiazem 240 MG Cap.ER PO SCH (08:41)
[2018-08-10] MEDS: Simvastatin 20 MG Tab PO SCH (08:42)
[2018-08-10] MEDS: Cyanocobalamin (Vitamin B12) 1,000 MCG Tab PO SCH (08:43)
[2018-08-10] MEDS: Multivitamins,Therapeutic Tab PO SCH (08:44)
[2018-08-10] MEDS: Docusate Sodium 100 MG Cap PO SCH (08:44)
[2018-08-10] MEDS: Cholecalciferol (Vitamin D3) 1,000 Unit Tab PO SCH (08:45)
[2018-08-10] MEDS: Spironolactone 25 MG Tab PO SCH (08:46)
[2018-08-10] MEDS: Propranolol 40 MG Tab PO SCH ×2 (08:47→20:57)
[2018-08-10] MEDS: Folic Acid 1 MG Tab PO SCH (08:47)
[2018-08-10] MEDS: Bisacodyl 5 MG Tab PO SCH (08:48)
[2018-08-10] MEDS: Triamcinolone Acetonide 0.1% Crm 15 GM Tube TOP SCH ×2 (08:50→20:58)
[2018-08-10] MEDS ORDERED: Sodium Chloride 0.9% 500 ML IV SCH (10:00)
[2018-08-10] MEDS ORDERED: Furosemide 40 MG/4 ML VIAL IVPUSH ONE (13:00)
--- NOTE | 2018-08-10 14:13 | PCM.PN ---
- General Info Date of Service: 08/10/18 Subjective Update: Drop in Hgb, will transfuse 2 units PRBCs Functional Status: Reports: Pain Controlled, Ambulating, Urinating - Review of Systems General: Reports: Weakness HEENT: Reports: No Symptoms Pulmonary: Reports: No Symptoms Cardiovascular: Reports: No Symptoms Gastrointestinal: Reports: No Symptoms Genitourinary: Reports: No Symptoms Musculoskeletal: Reports: No Symptoms Skin: Reports: No Symptoms Neurological: Reports: No Symptoms Psychiatric: Reports: No Symptoms - Patient Data Vitals - Most Recent: Last Vital Signs Temp 36.4 C 08/10/18 13:33 Pulse 62 08/10/18 13:33 Resp 16 08/10/18 13:33 BP 102/42 L 08/10/18 13:33 Pulse Ox 96 08/10/18 11:12 Weight - Most Recent: 83.416 kg I&O - Last 24 Hours: Intake & Output 08/09/18 08/10/18 08/10/18 22:59 06:59 14:59 Intake Total 310 250 796 Output Total 550 1100 Balance -240 -850 796 Lab Results Last 24 Hours: Laboratory Results - last 24 hr 08/09/18 08/09/18 08/10/18 Range/Units 12:47 18:07 06:10 WBC 5.71 (4.23-9.07) K/mm3 RBC 2.20 L (4.63-6.08) M/mm3 Hgb 8.5 L 7.8 L (13.7-17.5) gm/L Hct 25.3 L 23.4 L (40.1-51.0) % MCV 106.4 H (79.0-92.2) fl MCH 35.5 H (25.7-32.2) pg MCHC 33.3 (32.2-35.5) g/dl RDW Std Deviation 50.1 H (35.1-43.9) fL Plt Count 169 (163-337) K/mm3 MPV 9.4 (9.4-12.3) fl Neut % (Auto) 58.2 (34.0-67.9) % Lymph % (Auto) 27.1 (21.8-53.1) % [place] % (Auto) 12.1 (5.3-12.2) % Eos % (Auto) 1.8 (0.8-7.0) Baso % (Auto) 0.4 (0.1-1.2) % Neut # (Auto) 3.33 (1.78-5.38) K/mm3 Lymph # (Auto) 1.55 (1.32-3.57) K/mm3 [place] # (Auto) 0.69 (0.30-0.82) K/mm3 Eos # (Auto) 0.10 (0.04-0.54) K/mm3 Baso # (Auto) 0.02 (0.01-0.08) K/mm3 Manual Slide Review Abnormal smear PT (9.5-12.1) SECONDS INR Sodium (136-145) mEq/L Potassium (3.5-5.1) mEq/L Chloride (98-107) mEq/L Carbon Dioxide (21-32) mEq/L Anion Gap (5-15) BUN (7-18) mg/dL Creatinine (0.7-1.3) mg/dL Est Cr Clr Drug Dosing mL/min Estimated GFR (MDRD) (>60) mL/min BUN/Creatinine Ratio (14-18) Glucose (83-115) mg/dL Calcium (8.5-10.1) mg/dL Magnesium (1.8-2.4) mg/dl Crossmatch See Detail 08/10/18 08/10/18 Range/Units 06:10 06:10 WBC (4.23-9.07) K/mm3 RBC (4.63-6.08) M/mm3 Hgb (13.7-17.5) gm/L Hct (40.1-51.0) % MCV (79.0-92.2) fl MCH (25.7-32.2) pg MCHC (32.2-35.5) g/dl RDW Std Deviation (35.1-43.9) fL Plt Count (163-337) K/mm3 MPV (9.4-12.3) fl Neut % (Auto) (34.0-67.9) % Lymph % (Auto) (21.8-53.1) % [place] % (Auto) (5.3-12.2) % Eos % (Auto) (0.8-7.0) Baso % (Auto) (0.1-1.2) % Neut # (Auto) (1.78-5.38) K/mm3 Lymph # (Auto) (1.32-3.57) K/mm3 [place] # (Auto) (0.30-0.82) K/mm3 Eos # (Auto) (0.04-0.54) K/mm3 Baso # (Auto) (0.01-0.08) K/mm3 Manual Slide Review PT 13.0 H (9.5-12.1) SECONDS INR 1.20 Sodium 135 L (136-145) mEq/L Potassium 3.3 L (3.5-5.1) mEq/L Chloride 100 (98-107) mEq/L Carbon Dioxide 28 (21-32) mEq/L Anion Gap 10.3 (5-15) BUN 14 (7-18) mg/dL Creatinine 1.0 (0.7-1.3) mg/dL Est Cr Clr Drug Dosing 61.86 mL/min Estimated GFR (MDRD) > 60 (>60) mL/min BUN/Creatinine Ratio 14.0 (14-18) Glucose 120 H (83-115) mg/dL Calcium 8.3 L (8.5-10.1) mg/dL Magnesium 1.8 (1.8-2.4) mg/dl Crossmatch Med Orders - Current: Current Medications Hydrocodone Bitart/Acetaminophen ([place] 325-5 Mg) 1 tab PO Q4H PRN PRN Reason: Pain (moderate 4-6) Albuterol/Ipratropium (Duoneb 3.0-0.5 Mg/3 Ml) 3 ml NEB Q4H PRN PRN Reason: Shortness Of Breath/wheezing Ascorbic Acid (Vitamin C) 500 mg PO DAILY [facility] Last Admin: 08/10/18 08:38 Dose: 500 mg Bisacodyl (Dulcolax) 10 mg PO DAILY [facility] Last Admin: 08/10/18 08:48 Dose: 10 mg Cholecalciferol (Vitamin D3) 2,000 units PO DAILY [facility] Last Admin: 08/10/18 08:45 Dose: 2,000 units Cyanocobalamin (Vitamin B12) 500 mcg PO DAILY [facility] Last Admin: 08/10/18 08:43 Dose: 500 mcg Diltiazem HCl (Dilacor Xr) 240 mg PO DAILY [facility] Last Admin: 08/10/18 08:41 Dose: 240 mg Diphenhydramine HCl (Benadryl) 25 mg PO Q4H PRN PRN Reason: Itching Docusate Sodium (Colace) 100 mg PO DAILY [facility] Last Admin: 08/10/18 08:44 Dose: 100 mg Folic Acid (Folic Acid) 0.5 mg PO DAILY [facility] Last Admin: 08/10/18 08:47 Dose: 0.5 mg Guaifenesin (Mucinex) 600 mg PO DAILY PRN PRN Reason: Allergies Hydralazine HCl (Apresoline) 20 mg IVPUSH Q4H PRN PRN Reason: Hypertension Hydromorphone HCl (Dilaudid) 0.25 mg IVPUSH Q2H PRN PRN Reason: Pain (severe 7-10) Sodium Chloride (Normal Saline) 1,000 mls @ 50 mls/hr IV ASDIRECTED [facility] Sodium Chloride (Normal Saline) 500 mls @ 100 mls/hr IV ASDIRECTED [facility] Lorazepam (Ativan) 0.5 mg IV Q6H PRN PRN Reason: Anxiety Metoprolol Tartrate (Lopressor) 5 mg IVPUSH Q4H PRN PRN Reason: Tachycardia Multivitamins (Thera) 1 each PO DAILY [facility] Last Admin: 08/10/18 08:44 Dose: 1 each Polyethylene Glycol/Electrolytes (Golytely) 4,000 ml PO ONETIME ONE Stop: 08/10/18 18:01 Potassium Chloride (Klor-Con M20) 40 meq PO BID [facility] Propranolol HCl (Inderal) 40 mg PO BID [facility] Last Admin: 08/10/18 08:47 Dose: 40 mg Simvastatin (Zocor) 20 mg PO DAILY [facility] Last Admin: 08/10/18 08:42 Dose: 20 mg Spironolactone (Aldactone) 25 mg PO DAILY [facility] Last Admin: 08/10/18 08:46 Dose: 25 mg Temazepam (Restoril) 7.5 mg PO BEDTIME PRN PRN Reason: Sleep Triamcinolone Acetonide (Triamcinolone Acetonide 0.1% Crm) 0 gm TOP BID [facility] Last Admin: 08/10/18 08:50 Dose: 15 gm Discontinued Medications Diltiazem HCl (Dilacor Xr) 240 mg PO DAILY [facility] Last Admin: 08/08/18 13:47 Dose: Not Given Diltiazem HCl (Dilacor Xr) 240 mg PO 1800 [facility] Last Admin: 08/08/18 17:43 Dose: 240 mg Furosemide (Lasix) 100 mg PO DAILY [facility] Last Admin: 08/10/18 08:36 Dose: 100 mg Furosemide (Lasix) 40 mg IVPUSH ONETIME ONE Stop: 08/10/18 13:01 Magnesium Sulfate 2 gm/ Premix 50 mls @ 25 mls/hr IV ONETIME ONE Stop: 08/08/18 11:29 Last Admin: 08/08/18 11:13 Dose: 25 mls/hr Ferric Sodium Gluconate Complex 250 mg/ Sodium Chloride 120 mls @ 60 mls/hr IV ONETIME ONE Stop: 08/09/18 11:59 Last Admin: 08/09/18 10:10 Dose: 60 mls/hr Magnesium Sulfate (Pharmacy To Dose - Magnesium Replacement) 0 dose .XX ASDIRECTED PRN PRN Reason: RX TO WATCH MAG Potassium Chloride (Pharmacy To Dose - Potassium Replacement) 0 dose .XX ASDIRECTED PRN PRN Reason: RX TO WATCH K - Exam Quality Assessment: Supplemental Oxygen, DVT Prophylaxis General: Alert, Oriented, Cooperative, No Acute Distress HEENT: Pupils Equal, Pupils Reactive, EOMI Neck: Trachea Midline, No JVD Lungs: Normal Respiratory Effort Cardiovascular: Regular Rate, Irregular Rhythm GI/Abdominal Exam: Normal Bowel Sounds, Soft, Non-Tender, No Organomegaly, No Distention (Male) Exam: Deferred Back Exam: Normal Inspection Extremities: Normal Inspection, Non-Tender, Normal Capillary Refill Skin: Warm Neurological: No New Focal Deficit Psy/Mental Status: Alert, Normal Affect, Normal Mood - Problem List Review Problem List Initiated/Reviewed/Updated: Yes - My Orders Last 24 Hours: My Active Orders 08/10/18 09:20 Transfuse PRBC [Transfuse Red Blood Cells] [COMM] Routine 08/10/18 10:00 Sodium Chloride 0.9% [Normal Saline] 500 ml IV ASDIRECTED 08/10/18 14:15 Potassium Chloride [Klor-Con M20] 40 meq PO BID - Plan Plan:: Assessment/Plan: Acute: GI Bleed - Hgb 10.8-->9.0, keep > 9.0 - Bright red blood with bowel movements - Carries previous hx/o in the past with unrevealing work up - On Warfarin or Chronic Atrial Fibrillation - Heme+ Stool (Mucous with bright red blood) performed by ED provider - Hold Warfarin for now - Monitor H/H - Consult Dr. Key for further evaluation-->colonoscopy on 08/11/18. Subtherapeutic INR - INR 1.93 -->1.75 - Has had 2 more episode last night since admission - Daily INR Hypomagnesemia--replace as needed. - Mg 1.6 - 2/2 NPO status and GI loss - Replete and monitor Chronic: Impaired Hearing/Vision Atrial Fibrillation on Warfarin HTN Hx/o HI S/p CARD CLOTHIER GERD Valvular Insufficiency S/p Replacement Hx/o TIA Psoriasis Plan: Admitted overnight for OBS Routine AM Labs Resume Home Meds NPO until eval by GS Change to inpatient if he now meets criteria Fall precautions GS consult with Dr. Key SW/CM for d/c planning Code status: 1 LOS>96 hours re: GI bleed
[2018-08-10] MEDS: Potassium Chloride 20 MEQ Tab.ER PO SCH ×2 (15:16→20:57)
[2018-08-10] MEDS ORDERED: Polyethylene Glycol/Electrolytes 4,000 ML Bottle PO ONE (18:00)
[2018-08-11] MEDS: Sodium Chloride 0.9% 1,000 ML IV SCH ×2 (00:39→20:45)
--- NOTE | 2018-08-11 08:15 | PCM.PN ---
<Tigre Palumbo - Last Filed: 08/11/18 09:56> - General Info Date of Service: 08/11/18 Admission Dx/Problem (Free Text): Admission Diagnosis/Problem Admission Diagnosis/Problem GI bleed not requiring more than 4 units of blood in 24 hours, ICU, or surgery Subjective Update: In to see Bg. He is up in the bathroom shaving. He is going to have a colonoscopy today. He reports his rectal bleed resolved yesterday and he has not had any bloody bowel movements since. He reports he feels pretty good. Hemoglobin is up to 9.9. Denies any pain. He is been nothing by mouth and this diet can likely be advanced after his procedure pending general surgery recommendations. Functional Status: Reports: Pain Controlled, Tolerating Diet, Ambulating, Urinating. Denies: New Symptoms - Review of Systems General: Reports: No Symptoms. Denies: Fever, Weakness, Fatigue, Malaise HEENT: Reports: No Symptoms. Denies: Headaches, Sore Throat Pulmonary: Reports: No Symptoms. Denies: Shortness of Breath, Pleuritic Chest Pain, Cough, Sputum, Wheezing Cardiovascular: Reports: No Symptoms. Denies: Chest Pain, Palpitations, Dyspnea on Exertion Gastrointestinal: Reports: No Symptoms. Denies: Abdominal Pain, Constipation, Diarrhea, Hematochezia, Melena, Nausea, Vomiting Genitourinary: Reports: No Symptoms. Denies: Pain Musculoskeletal: Reports: No Symptoms Skin: Reports: No Symptoms. Denies: Cyanosis Neurological: Reports: No Symptoms. Denies: Confusion Psychiatric: Reports: No Symptoms - Patient Data Vitals - Most Recent: Last Vital Signs Temp 98.1 F 08/11/18 05:48 Pulse 65 08/11/18 05:48 Resp 18 08/11/18 05:48 BP 102/51 L 08/11/18 05:48 Pulse Ox 97 08/11/18 05:48 Weight - Most Recent: 179 lb 3 oz I&O - Last 24 Hours: Intake & Output 08/10/18 08/11/18 08/11/18 22:59 06:59 14:59 Intake Total 1706 1200 Output Total 1500 Balance 206 1200 Lab Results Last 24 Hours: Laboratory Results - last 24 hr 08/09/18 08/11/18 08/11/18 Range/Units 12:47 05:08 05:08 WBC 4.99 (4.23-9.07) K/mm3 RBC 3.01 L (4.63-6.08) M/mm3 Hgb 9.9 L (13.7-17.5) gm/L Hct 29.8 L (40.1-51.0) % MCV 99.0 H (79.0-92.2) fl MCH 32.9 H (25.7-32.2) pg MCHC 33.2 (32.2-35.5) g/dl RDW Std Deviation 61.1 H (35.1-43.9) fL Plt Count 177 (163-337) K/mm3 MPV 9.4 (9.4-12.3) fl Neut % (Auto) 58.1 (34.0-67.9) % Lymph % (Auto) 25.7 (21.8-53.1) % Eagle % (Auto) 12.6 H (5.3-12.2) % Eos % (Auto) 2.8 (0.8-7.0) Baso % (Auto) 0.4 (0.1-1.2) % Neut # (Auto) 2.90 (1.78-5.38) K/mm3 Lymph # (Auto) 1.28 L (1.32-3.57) K/mm3 Eagle # (Auto) 0.63 (0.30-0.82) K/mm3 Eos # (Auto) 0.14 (0.04-0.54) K/mm3 Baso # (Auto) 0.02 (0.01-0.08) K/mm3 PT (9.5-12.1) SECONDS INR Sodium 141 (136-145) mEq/L Potassium 3.4 L (3.5-5.1) mEq/L Chloride 103 (98-107) mEq/L Carbon Dioxide 29 (21-32) mEq/L Anion Gap 12.4 (5-15) BUN 11 (7-18) mg/dL Creatinine 1.0 (0.7-1.3) mg/dL Est Cr Clr Drug Dosing 61.86 mL/min Estimated GFR (MDRD) > 60 (>60) mL/min BUN/Creatinine Ratio 11.0 L (14-18) Glucose 97 (83-115) mg/dL Calcium 8.7 (8.5-10.1) mg/dL Magnesium 1.6 L (1.8-2.4) mg/dl Crossmatch See Detail 08/11/18 Range/Units 05:08 WBC (4.23-9.07) K/mm3 RBC (4.63-6.08) M/mm3 Hgb (13.7-17.5) gm/L Hct (40.1-51.0) % MCV (79.0-92.2) fl MCH (25.7-32.2) pg MCHC (32.2-35.5) g/dl RDW Std Deviation (35.1-43.9) fL Plt Count (163-337) K/mm3 MPV (9.4-12.3) fl Neut % (Auto) (34.0-67.9) % Lymph % (Auto) (21.8-53.1) % Eagle % (Auto) (5.3-12.2) % Eos % (Auto) (0.8-7.0) Baso % (Auto) (0.1-1.2) % Neut # (Auto) (1.78-5.38) K/mm3 Lymph # (Auto) (1.32-3.57) K/mm3 Eagle # (Auto) (0.30-0.82) K/mm3 Eos # (Auto) (0.04-0.54) K/mm3 Baso # (Auto) (0.01-0.08) K/mm3 PT 13.0 H (9.5-12.1) SECONDS INR 1.20 Sodium (136-145) mEq/L Potassium (3.5-5.1) mEq/L Chloride (98-107) mEq/L Carbon Dioxide (21-32) mEq/L Anion Gap (5-15) BUN (7-18) mg/dL Creatinine (0.7-1.3) mg/dL Est Cr Clr Drug Dosing mL/min Estimated GFR (MDRD) (>60) mL/min BUN/Creatinine Ratio (14-18) Glucose (83-115) mg/dL Calcium (8.5-10.1) mg/dL Magnesium (1.8-2.4) mg/dl Crossmatch Med Orders - Current: Current Medications Hydrocodone Bitart/Acetaminophen ([place] 325-5 Mg) 1 tab PO Q4H PRN PRN Reason: Pain (moderate 4-6) Albuterol/Ipratropium (Duoneb 3.0-0.5 Mg/3 Ml) 3 ml NEB Q4H PRN PRN Reason: Shortness Of Breath/wheezing Ascorbic Acid (Vitamin C) 500 mg PO DAILY [facility] Last Admin: 08/10/18 08:38 Dose: 500 mg Bisacodyl (Dulcolax) 10 mg PO DAILY [facility] Last Admin: 08/10/18 08:48 Dose: 10 mg Cholecalciferol (Vitamin D3) 2,000 units PO DAILY [facility] Last Admin: 08/10/18 08:45 Dose: 2,000 units Cyanocobalamin (Vitamin B12) 500 mcg PO DAILY [facility] Last Admin: 08/10/18 08:43 Dose: 500 mcg Diltiazem HCl (Dilacor Xr) 240 mg PO DAILY [facility] Last Admin: 08/10/18 08:41 Dose: 240 mg Diphenhydramine HCl (Benadryl) 25 mg PO Q4H PRN PRN Reason: Itching Docusate Sodium (Colace) 100 mg PO DAILY [facility] Last Admin: 08/10/18 08:44 Dose: 100 mg Folic Acid (Folic Acid) 0.5 mg PO DAILY [facility] Last Admin: 08/10/18 08:47 Dose: 0.5 mg Guaifenesin (Mucinex) 600 mg PO DAILY PRN PRN Reason: Allergies Hydralazine HCl (Apresoline) 20 mg IVPUSH Q4H PRN PRN Reason: Hypertension Hydromorphone HCl (Dilaudid) 0.25 mg IVPUSH Q2H PRN PRN Reason: Pain (severe 7-10) Sodium Chloride (Normal Saline) 1,000 mls @ 50 mls/hr IV ASDIRECTED [facility] Last Admin: 08/11/18 00:39 Dose: 50 mls/hr Lorazepam (Ativan) 0.5 mg IV Q6H PRN PRN Reason: Anxiety Metoprolol Tartrate (Lopressor) 5 mg IVPUSH Q4H PRN PRN Reason: Tachycardia Multivitamins (Thera) 1 each PO DAILY [facility] Last Admin: 08/10/18 08:44 Dose: 1 each Potassium Chloride (Klor-Con M20) 40 meq PO BID [facility] Stop: 08/11/18 09:01 Last Admin: 08/10/18 20:57 Dose: 40 meq Propranolol HCl (Inderal) 40 mg PO BID [facility] Last Admin: 08/10/18 20:57 Dose: 40 mg Simvastatin (Zocor) 20 mg PO DAILY [facility] Last Admin: 08/10/18 08:42 Dose: 20 mg Spironolactone (Aldactone) 25 mg PO DAILY [facility] Last Admin: 08/10/18 08:46 Dose: 25 mg Temazepam (Restoril) 7.5 mg PO BEDTIME PRN PRN Reason: Sleep Triamcinolone Acetonide (Triamcinolone Acetonide 0.1% Crm) 0 gm TOP BID [facility] Last Admin: 08/10/18 20:58 Dose: 1 applic Discontinued Medications Diltiazem HCl (Dilacor Xr) 240 mg PO DAILY [facility] Last Admin: 08/08/18 13:47 Dose: Not Given Diltiazem HCl (Dilacor Xr) 240 mg PO 1800 [facility] Last Admin: 08/08/18 17:43 Dose: 240 mg Furosemide (Lasix) 100 mg PO DAILY [facility] Last Admin: 08/10/18 08:36 Dose: 100 mg Furosemide (Lasix) 40 mg IVPUSH ONETIME ONE Stop: 08/10/18 13:01 Last Admin: 08/10/18 14:00 Dose: 40 mg Magnesium Sulfate 2 gm/ Premix 50 mls @ 25 mls/hr IV ONETIME ONE Stop: 08/08/18 11:29 Last Admin: 08/08/18 11:13 Dose: 25 mls/hr Ferric Sodium Gluconate Complex 250 mg/ Sodium Chloride 120 mls @ 60 mls/hr IV ONETIME ONE Stop: 08/09/18 11:59 Last Admin: 08/09/18 10:10 Dose: 60 mls/hr Sodium Chloride (Normal Saline) 500 mls @ 100 mls/hr IV ASDIRECTED [facility] Last Admin: 08/10/18 10:55 Dose: 100 mls/hr Magnesium Sulfate (Pharmacy To Dose - Magnesium Replacement) 0 dose .XX ASDIRECTED PRN PRN Reason: RX TO WATCH MAG Polyethylene Glycol/Electrolytes (Golytely) 4,000 ml PO ONETIME ONE Stop: 08/10/18 18:01 Last Admin: 08/10/18 17:40 Dose: 4 liter Potassium Chloride (Pharmacy To Dose - Potassium Replacement) 0 dose .XX ASDIRECTED PRN PRN Reason: RX TO WATCH K - Exam Quality Assessment: DVT Prophylaxis General: Alert, Oriented, Cooperative, No Acute Distress HEENT: Pupils Equal, Pupils Reactive, EOMI, Mucous Membr. Moist/[place] Neck: Supple, Trachea Midline, No JVD Lungs: Clear to Auscultation, Normal Respiratory Effort Cardiovascular: Irregular Rhythm, Murmurs GI/Abdominal Exam: Normal Bowel Sounds, Soft, Non-Tender, No Organomegaly, No Distention (Male) Exam: Deferred Back Exam: Normal Inspection, Full Range of Motion Extremities: Normal Inspection, Normal Range of Motion, Non-Tender, No Pedal Edema, Normal Capillary Refill Peripheral Pulses: 2+: Radial (L), Radial (R), Dorsalis Pedis (L), Dorsalis Pedis (R) Skin: Warm, Dry, Intact Neurological: No New Focal Deficit Psy/Mental Status: Alert, Normal Affect, Normal Mood - Problem List & Annotations (1) GI hemorrhage SNOMED Code(s): 54074628 Code(s): K92.2 - GASTROINTESTINAL HEMORRHAGE, UNSPECIFIED Status: Acute Current Visit: Yes (2) Hypomagnesemia SNOMED Code(s): 657868660 Code(s): E83.42 - HYPOMAGNESEMIA Status: Acute Current Visit: Yes (3) Warfarin-induced coagulopathy SNOMED Code(s): 90502826 Code(s): D68.32 - HEMORRHAGIC DISORD D/T EXTRINSIC CIRCULATING ANTICOAGULANTS ; T45.515A - ADVERSE EFFECT OF ANTICOAGULANTS, INITIAL ENCOUNTER Status: Acute Current Visit: Yes - Problem List Review Problem List Initiated/Reviewed/Updated: Yes - Plan Plan:: Assessment/Plan: Acute: GI Bleed - Hgb 10.8-->9.0-->8.6-->8.1-->8.5-->7.8-->9.9 (s/p 2 units) , keep > 9.0 - S/P transfusion - 2 units 08/10/18 - Bright red blood with bowel movements - Carries previous hx/o in the past with unrevealing work up - On Warfarin or Chronic Atrial Fibrillation - Heme+ Stool (Mucous with bright red blood) performed by ED provider - Hold Warfarin for now - Monitor H/H - Consult Dr. Key for further evaluation-->colonoscopy on 08/11/18. Subtherapeutic INR - INR 1.93 -->1.75-->1.39-->1.2 - Has had 2 more episode last night since admission - Daily INR - Holding warfarin 2/2 GI bleed as above Hypomagnesemia--replace as needed. 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 Key SW/CM for d/c planning Code status: 1; PCP: Dr. Denny LOS>96 hours re: GI bleed, colonoscopy scheduled 08/11/18 <Faisal Cedillo - Last Filed: 08/11/18 14:18> - Patient Data Vitals - Most Recent: Last Vital Signs Temp 97.2 F 08/11/18 11:55 Pulse 112 H 08/11/18 11:55 Resp 16 08/11/18 11:55 BP 117/72 08/11/18 11:55 Pulse Ox 99 08/11/18 10:51 I&O - Last 24 Hours: Intake & Output 08/10/18 08/11/18 08/11/18 22:59 06:59 14:59 Intake Total 1706 1200 Output Total 1500 Balance 206 1200 Lab Results Last 24 Hours: Laboratory Results - last 24 hr 08/09/18 08/11/18 08/11/18 Range/Units 12:47 05:08 05:08 WBC 4.99 (4.23-9.07) K/mm3 RBC 3.01 L (4.63-6.08) M/mm3 Hgb 9.9 L (13.7-17.5) gm/L Hct 29.8 L (40.1-51.0) % MCV 99.0 H (79.0-92.2) fl MCH 32.9 H (25.7-32.2) pg MCHC 33.2 (32.2-35.5) g/dl RDW Std Deviation 61.1 H (35.1-43.9) fL Plt Count 177 (163-337) K/mm3 MPV 9.4 (9.4-12.3) fl Neut % (Auto) 58.1 (34.0-67.9) % Lymph % (Auto) 25.7 (21.8-53.1) % Eagle % (Auto) 12.6 H (5.3-12.2) % Eos % (Auto) 2.8 (0.8-7.0) Baso % (Auto) 0.4 (0.1-1.2) % Neut # (Auto) 2.90 (1.78-5.38) K/mm3 Lymph # (Auto) 1.28 L (1.32-3.57) K/mm3 Eagle # (Auto) 0.63 (0.30-0.82) K/mm3 Eos # (Auto) 0.14 (0.04-0.54) K/mm3 Baso # (Auto) 0.02 (0.01-0.08) K/mm3 PT (9.5-12.1) SECONDS INR Sodium 141 (136-145) mEq/L Potassium 3.4 L (3.5-5.1) mEq/L Chloride 103 (98-107) mEq/L Carbon Dioxide 29 (21-32) mEq/L Anion Gap 12.4 (5-15) BUN 11 (7-18) mg/dL Creatinine 1.0 (0.7-1.3) mg/dL Est Cr Clr Drug Dosing 61.86 mL/min Estimated GFR (MDRD) > 60 (>60) mL/min BUN/Creatinine Ratio 11.0 L (14-18) Glucose 97 (83-115) mg/dL Calcium 8.7 (8.5-10.1) mg/dL Magnesium 1.6 L (1.8-2.4) mg/dl Crossmatch See Detail 08/11/18 Range/Units 05:08 WBC (4.23-9.07) K/mm3 RBC (4.63-6.08) M/mm3 Hgb (13.7-17.5) gm/L Hct (40.1-51.0) % MCV (79.0-92.2) fl MCH (25.7-32.2) pg MCHC (32.2-35.5) g/dl RDW Std Deviation (35.1-43.9) fL Plt Count (163-337) K/mm3 MPV (9.4-12.3) fl Neut % (Auto) (34.0-67.9) % Lymph % (Auto) (21.8-53.1) % Eagle % (Auto) (5.3-12.2) % Eos % (Auto) (0.8-7.0) Baso % (Auto) (0.1-1.2) % Neut # (Auto) (1.78-5.38) K/mm3 Lymph # (Auto) (1.32-3.57) K/mm3 Eagle # (Auto) (0.30-0.82) K/mm3 Eos # (Auto) (0.04-0.54) K/mm3 Baso # (Auto) (0.01-0.08) K/mm3 PT 13.0 H (9.5-12.1) SECONDS INR 1.20 Sodium (136-145) mEq/L Potassium (3.5-5.1) mEq/L Chloride (98-107) mEq/L Carbon Dioxide (21-32) mEq/L Anion Gap (5-15) BUN (7-18) mg/dL Creatinine (0.7-1.3) mg/dL Est Cr Clr Drug Dosing mL/min Estimated GFR (MDRD) (>60) mL/min BUN/Creatinine Ratio (14-18) Glucose (83-115) mg/dL Calcium (8.5-10.1) mg/dL Magnesium (1.8-2.4) mg/dl Crossmatch Med Orders - Current: Current Medications Hydrocodone Bitart/Acetaminophen ([place] 325-5 Mg) 1 tab PO Q4H PRN PRN Reason: Pain (moderate 4-6) Albuterol/Ipratropium (Duoneb 3.0-0.5 Mg/3 Ml) 3 ml NEB Q4H PRN PRN Reason: Shortness Of Breath/wheezing Ascorbic Acid (Vitamin C) 500 mg PO DAILY [facility] Last Admin: 08/10/18 08:38 Dose: 500 mg Bisacodyl (Dulcolax) 10 mg PO DAILY [facility] Last Admin: 08/10/18 08:48 Dose: 10 mg Cholecalciferol (Vitamin D3) 2,000 units PO DAILY [facility] Last Admin: 08/10/18 08:45 Dose: 2,000 units Cyanocobalamin (Vitamin B12) 500 mcg PO DAILY [facility] Last Admin: 08/10/18 08:43 Dose: 500 mcg Diltiazem HCl (Dilacor Xr) 240 mg PO DAILY [facility] Last Admin: 08/10/18 08:41 Dose: 240 mg Diphenhydramine HCl (Benadryl) 25 mg PO Q4H PRN PRN Reason: Itching Docusate Sodium (Colace) 100 mg PO DAILY [facility] Last Admin: 08/10/18 08:44 Dose: 100 mg Folic Acid (Folic Acid) 0.5 mg PO DAILY [facility] Last Admin: 08/10/18 08:47 Dose: 0.5 mg Guaifenesin (Mucinex) 600 mg PO DAILY PRN PRN Reason: Allergies Hydralazine HCl (Apresoline) 20 mg IVPUSH Q4H PRN PRN Reason: Hypertension Hydromorphone HCl (Dilaudid) 0.25 mg IVPUSH Q2H PRN PRN Reason: Pain (severe 7-10) Sodium Chloride (Normal Saline) 1,000 mls @ 50 mls/hr IV ASDIRECTED [facility] Last Admin: 08/11/18 00:39 Dose: 50 mls/hr Magnesium Sulfate 2 gm/ Premix 50 mls @ 25 mls/hr IV ONETIME ONE Stop: 08/11/18 14:29 Last Admin: 08/11/18 12:09 Dose: 25 mls/hr Lorazepam (Ativan) 0.5 mg IV Q6H PRN PRN Reason: Anxiety Metoprolol Tartrate (Lopressor) 5 mg IVPUSH Q4H PRN PRN Reason: Tachycardia Multivitamins (Thera) 1 each PO DAILY [facility] Last Admin: 08/10/18 08:44 Dose: 1 each Propranolol HCl (Inderal) 40 mg PO BID [facility] Last Admin: 08/11/18 08:39 Dose: 40 mg Simvastatin (Zocor) 20 mg PO DAILY [facility] Last Admin: 08/10/18 08:42 Dose: 20 mg Spironolactone (Aldactone) 25 mg PO DAILY [facility] Last Admin: 08/10/18 08:46 Dose: 25 mg Temazepam (Restoril) 7.5 mg PO BEDTIME PRN PRN Reason: Sleep Triamcinolone Acetonide (Triamcinolone Acetonide 0.1% Crm) 0 gm TOP BID [facility] Last Admin: 08/10/18 20:58 Dose: 1 applic Discontinued Medications Diltiazem HCl (Dilacor Xr) 240 mg PO DAILY [facility] Last Admin: 08/08/18 13:47 Dose: Not Given Diltiazem HCl (Dilacor Xr) 240 mg PO 1800 [facility] Last Admin: 08/08/18 17:43 Dose: 240 mg Furosemide (Lasix) 100 mg PO DAILY [facility] Last Admin: 08/10/18 08:36 Dose: 100 mg Furosemide (Lasix) 40 mg IVPUSH ONETIME ONE Stop: 08/10/18 13:01 Last Admin: 08/10/18 14:00 Dose: 40 mg Magnesium Sulfate 2 gm/ Premix 50 mls @ 25 mls/hr IV ONETIME ONE Stop: 08/08/18 11:29 Last Admin: 08/08/18 11:13 Dose: 25 mls/hr Ferric Sodium Gluconate Complex 250 mg/ Sodium Chloride 120 mls @ 60 mls/hr IV ONETIME ONE Stop: 08/09/18 11:59 Last Admin: 08/09/18 10:10 Dose: 60 mls/hr Sodium Chloride (Normal Saline) 500 mls @ 100 mls/hr IV ASDIRECTED [facility] Last Admin: 08/10/18 10:55 Dose: 100 mls/hr Magnesium Sulfate (Pharmacy To Dose - Magnesium Replacement) 0 dose .XX ASDIRECTED PRN PRN Reason: RX TO WATCH MAG Polyethylene Glycol/Electrolytes (Golytely) 4,000 ml PO ONETIME ONE Stop: 08/10/18 18:01 Last Admin: 08/10/18 17:40 Dose: 4 liter Potassium Chloride (Pharmacy To Dose - Potassium Replacement) 0 dose .XX ASDIRECTED PRN PRN Reason: RX TO WATCH K Potassium Chloride (Klor-Con M20) 40 meq PO BID [facility] Stop: 08/11/18 09:01 Last Admin: 08/10/18 20:57 Dose: 40 meq Propofol (Diprivan 20 Ml) Confirm Administered Dose 400 mg .ROUTE .STK-MED ONE Stop: 08/11/18 10:55 - My Orders Last 24 Hours: My Active Orders 08/11/18 Dinner Regular Diet [DIET] - Plan Plan:: Colonoscopy showed extensive diverticulosis without active bleeding. Will follow hemoglobin overnight. If no further bleeding discharge tomorrow.
[2018-08-11] MEDS: Propranolol 40 MG Tab PO SCH ×2 (08:39→20:44)
[2018-08-11] MEDS ORDERED: Magnesium Sulfate/Water 2 GM in Premix Bag 1 BAG IV ONE ×2 (09:12→12:30)
--- NOTE | 2018-08-11 10:32 | PCM.PREANE ---
Preanesthetic Assessment - Anesthesia/Transfusion/Family Hx Anesthesia History: Prior Anesthesia Without Reaction Family History of Anesthesia Reaction: No Transfusion History: Prior Transfusion Without Reaction - Review of Systems General: Fatigue (chronic fatigue), Other (anemic with 2 units of blood transfused, hgb up to 9.9, up from 7.8. mag 1.6, Pt 13 INR 1.2) Pulmonary: Shortness of Breath Cardiovascular: Other (HTN, pacemaker, on coumadin (last dose 08/07/18), hx of TIA, EKG ventricular paced, pt states has his yearly cardiac workup 2.5 weeks ago and states that it was all good.) Gastrointestinal: No Symptoms, Other (gerd) Neurological: Other Other: Reports: Easy Bleeding, Easy Bruising - Physical Assessment NPO Status Date: 08/11/18 NPO Status Time: 02:30 Pulse: 112 O2 Sat by Pulse Oximetry: 99 Respiratory Rate: 16 Blood Pressure: 117/72 Temperature: 36.2 C Vital Signs: Last Vital Signs Temp 36.2 C 08/11/18 08:24 Pulse 112 H 08/11/18 08:24 Resp 16 08/11/18 08:24 BP 117/72 08/11/18 08:24 Pulse Ox 99 08/11/18 08:24 Height: 1.75 m Weight: 81.278 kg ASA Class: 3 Mental Status: Alert & Oriented x3 Airway Class: Mallampati = 2 Dentition: Reports: Dentures, Edentulous Thyro-Mental Finger Breadths: 3 Mouth Opening Finger Breadths: 3 ROM/Head Extension: Full Lungs: Clear to Auscultation, Normal Respiratory Effort Cardiovascular: Regular Rate, Regular Rhythm - Lab Values: Laboratory Last Values WBC 4.99 K/mm3 (4.23-9.07) 08/11/18 05:08 RBC 3.01 M/mm3 (4.63-6.08) L 08/11/18 05:08 Hgb 9.9 gm/L (13.7-17.5) L 08/11/18 05:08 Hct 29.8 % (40.1-51.0) L 08/11/18 05:08 MCV 99.0 fl (79.0-92.2) H 08/11/18 05:08 MCH 32.9 pg (25.7-32.2) H 08/11/18 05:08 MCHC 33.2 g/dl (32.2-35.5) 08/11/18 05:08 RDW Std Deviation 61.1 fL (35.1-43.9) H 08/11/18 05:08 Plt Count 177 K/mm3 (163-337) 08/11/18 05:08 MPV 9.4 fl (9.4-12.3) 08/11/18 05:08 Neut % (Auto) 58.1 % (34.0-67.9) 08/11/18 05:08 Lymph % (Auto) 25.7 % (21.8-53.1) 08/11/18 05:08 [place] % (Auto) 12.6 % (5.3-12.2) H 08/11/18 05:08 Eos % (Auto) 2.8 (0.8-7.0) 08/11/18 05:08 Baso % (Auto) 0.4 % (0.1-1.2) 08/11/18 05:08 Neut # (Auto) 2.90 K/mm3 (1.78-5.38) 08/11/18 05:08 Lymph # (Auto) 1.28 K/mm3 (1.32-3.57) L 08/11/18 05:08 [place] # (Auto) 0.63 K/mm3 (0.30-0.82) 08/11/18 05:08 Eos # (Auto) 0.14 K/mm3 (0.04-0.54) 08/11/18 05:08 Baso # (Auto) 0.02 K/mm3 (0.01-0.08) 08/11/18 05:08 Neutrophils % (Manual) 65 % (40-60) H 08/07/18 21:50 Band Neutrophils % 0 % (0-10) 08/07/18 21:50 Lymphocytes % (Manual) 20 % (20-40) 08/07/18 21:50 Atypical Lymphs % 0 % 08/07/18 21:50 Monocytes % (Manual) 7 % (2-10) 08/07/18 21:50 Eosinophils % (Manual) 8 % (0.8-7.0) H 08/07/18 21:50 Basophils % (Manual) 0 (0.2-1.2) L 08/07/18 21:50 Manual Slide Review Abnormal smear 08/10/18 06:10 Toxic Granulation 1+ slight 08/07/18 21:50 Platelet Estimate Adequate 08/07/18 21:50 Plt Morphology Comment See note 08/07/18 21:50 Polychromasia 1+ slight 08/07/18 21:50 Anisocytosis 1+ slight 08/07/18 21:50 Macrocytosis 1+ slight 08/07/18 21:50 RBC Morph Comment Not Reportable 08/07/18 21:50 PT 13.0 SECONDS (9.5-12.1) H 08/11/18 05:08 INR 1.20 08/11/18 05:08 Sodium 141 mEq/L (136-145) 08/11/18 05:08 Potassium 3.4 mEq/L (3.5-5.1) L 08/11/18 05:08 Chloride 103 mEq/L (98-107) 08/11/18 05:08 Carbon Dioxide 29 mEq/L (21-32) 08/11/18 05:08 Anion Gap 12.4 (5-15) 08/11/18 05:08 BUN 11 mg/dL (7-18) 08/11/18 05:08 Creatinine 1.0 mg/dL (0.7-1.3) 08/11/18 05:08 Est Cr Clr Drug Dosing 61.86 mL/min 08/11/18 05:08 Estimated GFR (MDRD) > 60 mL/min (>60) 08/11/18 05:08 BUN/Creatinine Ratio 11.0 (14-18) L 08/11/18 05:08 Glucose 97 mg/dL (83-115) 08/11/18 05:08 Calcium 8.7 mg/dL (8.5-10.1) 08/11/18 05:08 Magnesium 1.6 mg/dl (1.8-2.4) L 08/11/18 05:08 Iron 61 ug/dL (65-175) L 08/09/18 05:45 TIBC 240 ug/dL (100-400) 08/09/18 05:45 % Saturation 25 % (20-55) 08/09/18 05:45 Transferrin 192 mg/dL (202-364) L 08/09/18 05:45 Total Bilirubin 1.6 mg/dL (0.2-1.0) H 08/07/18 21:50 AST 37 U/L (15-37) 08/07/18 21:50 ALT 35 U/L (16-63) 08/07/18 21:50 Alkaline Phosphatase 100 U/L (46-116) 08/07/18 21:50 Total Protein 6.5 g/dl (6.4-8.2) 08/07/18 21:50 Albumin 3.2 g/dl (3.4-5.0) L 08/07/18 21:50 Globulin 3.3 gm/dL 08/07/18 21:50 Albumin/Globulin Ratio 1.0 (1-2) 08/07/18 21:50 Blood Type A POSITIVE 08/09/18 05:45 Gel Antibody Screen Negative 08/09/18 05:45 Crossmatch See Detail 08/09/18 12:47 - Allergies Allergies/Adverse Reactions: Allergies Allergy/AdvReac Type Severity Reaction Status Date / Time steroids Allergy Rash Uncoded 03/15/17 10:46 - Blood Blood Available: No Product(s) Available: None - Anesthesia Plan Pre-Op Medication Ordered: None - Acknowledgements Anesthesia Type Planned: MAC Pt an Appropriate Candidate for the Planned Anesthesia: Yes Alternatives and Risks of Anesthesia Discussed w Pt/Guardian: Yes Pt/Guardian Understands and Agrees with Anesthesia Plan: Yes PreAnesthesia Questionnaire HEENT History: Reports: Hard of Hearing, Impaired Vision Cardiovascular History: Reports: Afib, Bypass, Hypertension, MT, Pacemaker Respiratory History: Reports: Pneumonia, Recurrent Gastrointestinal History: Reports: GERD, GI Bleed Neurological History: Reports: TIA Dermatologic History: Reports: Psoriasis - Infectious Disease History Infectious Disease History: Reports: Chicken Pox, Measles, Mumps - Past Surgical History HEENT Surgical History: Reports: LASIK, Other (See Below) Other HEENT Surgeries/Procedures: laser surgery for loss of vision Cardiovascular Surgical History: Reports: AICD, Coronary Artery Bypass, Percutaneous Transluminal Angioplasty, Valve Replacement Respiratory Surgical History: Reports: None GI Surgical History: Reports: Cholecystectomy Neurological Surgical History: Reports: None Musculoskeletal Surgical History: Reports: Shoulder Surgery Dermatological Surgical History: Reports: None - SUBSTANCE USE Smoking Status *Q: Never Smoker Second Hand Smoke Exposure: No Number of Drinks Per Day: 1 Date of Last Drink: 08/04/18 Time of Last Drink: 20:00 Recreational Drug Use History: No - HOME MEDS Home Medications: Home Meds Ascorbic Acid [Vitamin C] 500 mg PO DAILY 09/12/15 [History] Aspirin [[place] Aspirin] 81 mg PO DAILY 09/12/15 [History] Cholecalciferol (Vitamin D3) [Vitamin D3] 2,000 units PO DAILY 09/12/15 [History ] Cyanocobalamin/Folic Acid [Vitamin L63-Albid Acid] 1 tab PO DAILY 09/12/15 [ History] Docusate Sodium [Colace] 100 mg PO BID 09/12/15 [History] Furosemide 100 mg PO DAILY 09/12/15 [History] Potassium Chloride 20 meq PO DAILY 09/12/15 [History] Propranolol HCl 40 mg PO BID 09/12/15 [History] Triamcinolone Acetonide [Triamcinolone Acetonide 0.1% Crm] 1 applic PO BID 09/11 [History] Warfarin Sodium 3 mg PO SUMOTUTHFRSA 09/12/15 [History] Warfarin Sodium 4.5 mg PO WE 09/12/15 [History] Simvastatin [Zocor] 20 mg PO DAILY 03/09/17 [History] Multivitamin With Minerals. 1 tab PO DAILY 03/15/17 [History] Spironolactone [Aldactone] 25 mg PO DAILY 08/07/18 [History] diphenhydrAMINE [Benadryl] 25 mg PO Q4H PRN 08/07/18 [History] guaiFENesin [Mucinex] 600 mg PO DAILY PRN 08/07/18 [History] Diltiazem HCl [Cardizem Cd] 240 mg PO DAILY 08/08/18 [History] - CURRENT (IN HOUSE) MEDS Current Meds: Current Medications Hydrocodone Bitart/Acetaminophen ([place]agon 325-5 Mg) 1 tab PO Q4H PRN PRN Reason: Pain (moderate 4-6) Albuterol/Ipratropium (Duoneb 3.0-0.5 Mg/3 Ml) 3 ml NEB Q4H PRN PRN Reason: Shortness Of Breath/wheezing Ascorbic Acid (Vitamin C) 500 mg PO DAILY [facility] Last Admin: 08/10/18 08:38 Dose: 500 mg Bisacodyl (Dulcolax) 10 mg PO DAILY [facility] Last Admin: 08/10/18 08:48 Dose: 10 mg Cholecalciferol (Vitamin D3) 2,000 units PO DAILY [facility] Last Admin: 08/10/18 08:45 Dose: 2,000 units Cyanocobalamin (Vitamin B12) 500 mcg PO DAILY [facility] Last Admin: 08/10/18 08:43 Dose: 500 mcg Diltiazem HCl (Dilacor Xr) 240 mg PO DAILY [facility] Last Admin: 08/10/18 08:41 Dose: 240 mg Diphenhydramine HCl (Benadryl) 25 mg PO Q4H PRN PRN Reason: Itching Docusate Sodium (Colace) 100 mg PO DAILY [facility] Last Admin: 08/10/18 08:44 Dose: 100 mg Folic Acid (Folic Acid) 0.5 mg PO DAILY [facility] Last Admin: 08/10/18 08:47 Dose: 0.5 mg Guaifenesin (Mucinex) 600 mg PO DAILY PRN PRN Reason: Allergies Hydralazine HCl (Apresoline) 20 mg IVPUSH Q4H PRN PRN Reason: Hypertension Hydromorphone HCl (Dilaudid) 0.25 mg IVPUSH Q2H PRN PRN Reason: Pain (severe 7-10) Sodium Chloride (Normal Saline) 1,000 mls @ 50 mls/hr IV ASDIRECTED [facility] Last Admin: 08/11/18 00:39 Dose: 50 mls/hr Magnesium Sulfate 2 gm/ Premix 50 mls @ 25 mls/hr IV ONETIME ONE Stop: 08/11/18 11:11 Lorazepam (Ativan) 0.5 mg IV Q6H PRN PRN Reason: Anxiety Metoprolol Tartrate (Lopressor) 5 mg IVPUSH Q4H PRN PRN Reason: Tachycardia Multivitamins (Thera) 1 each PO DAILY [facility] Last Admin: 08/10/18 08:44 Dose: 1 each Propranolol HCl (Inderal) 40 mg PO BID [facility] Last Admin: 08/11/18 08:39 Dose: 40 mg Simvastatin (Zocor) 20 mg PO DAILY [facility] Last Admin: 08/10/18 08:42 Dose: 20 mg Spironolactone (Aldactone) 25 mg PO DAILY [facility] Last Admin: 08/10/18 08:46 Dose: 25 mg Temazepam (Restoril) 7.5 mg PO BEDTIME PRN PRN Reason: Sleep Triamcinolone Acetonide (Triamcinolone Acetonide 0.1% Crm) 0 gm TOP BID [facility] Last Admin: 08/10/18 20:58 Dose: 1 applic Discontinued Medications Diltiazem HCl (Dilacor Xr) 240 mg PO DAILY [facility] Last Admin: 08/08/18 13:47 Dose: Not Given Diltiazem HCl (Dilacor Xr) 240 mg PO 1800 [facility] Last Admin: 08/08/18 17:43 Dose: 240 mg Furosemide (Lasix) 100 mg PO DAILY [facility] Last Admin: 08/10/18 08:36 Dose: 100 mg Furosemide (Lasix) 40 mg IVPUSH ONETIME ONE Stop: 08/10/18 13:01 Last Admin: 08/10/18 14:00 Dose: 40 mg Magnesium Sulfate 2 gm/ Premix 50 mls @ 25 mls/hr IV ONETIME ONE Stop: 08/08/18 11:29 Last Admin: 08/08/18 11:13 Dose: 25 mls/hr Ferric Sodium Gluconate Complex 250 mg/ Sodium Chloride 120 mls @ 60 mls/hr IV ONETIME ONE Stop: 08/09/18 11:59 Last Admin: 08/09/18 10:10 Dose: 60 mls/hr Sodium Chloride (Normal Saline) 500 mls @ 100 mls/hr IV ASDIRECTED [facility] Last Admin: 08/10/18 10:55 Dose: 100 mls/hr Magnesium Sulfate (Pharmacy To Dose - Magnesium Replacement) 0 dose .XX ASDIRECTED PRN PRN Reason: RX TO WATCH MAG Polyethylene Glycol/Electrolytes (Golytely) 4,000 ml PO ONETIME ONE Stop: 08/10/18 18:01 Last Admin: 08/10/18 17:40 Dose: 4 liter Potassium Chloride (Pharmacy To Dose - Potassium Replacement) 0 dose .XX ASDIRECTED PRN PRN Reason: RX TO WATCH K Potassium Chloride (Klor-Con M20) 40 meq PO BID [facility] Stop: 08/11/18 09:01 Last Admin: 08/10/18 20:57 Dose: 40 meq
[2018-08-11] MEDS ORDERED: Propofol 200 MG/20 ML SDV ONE (10:54)
--- NOTE | 2018-08-11 11:55 | PCM48HPAN ---
Post Anesthesia Note - EVALUATION WITHIN 48HRS OF ANESTHETIC Vital Signs in Normal Range: Yes Patient Participated in Evaluation: Yes Respiratory Function Stable: Yes Airway Patent: Yes Cardiovascular Function Stable: Yes Hydration Status Stable: Yes Pain Control Satisfactory: Yes Nausea and Vomiting Control Satisfactory: Yes Mental Status Recovered: Yes Pulse Rate: 112 Resp Rate: 16 Temperature: 36.2 C Blood Pressure: 117/72
[2018-08-11] MEDS: Triamcinolone Acetonide 0.1% Crm 15 GM Tube TOP SCH ×2 (15:23→20:45)
[2018-08-11] MEDS: Multivitamins,Therapeutic Tab PO SCH (15:24)
[2018-08-11] MEDS: Simvastatin 20 MG Tab PO SCH (15:25)
[2018-08-11] MEDS: Folic Acid 1 MG Tab PO SCH (15:25)
[2018-08-11] MEDS: Spironolactone 25 MG Tab PO SCH (15:25)
[2018-08-11] MEDS: Cholecalciferol (Vitamin D3) 1,000 Unit Tab PO SCH (15:25)
[2018-08-11] MEDS: Cyanocobalamin (Vitamin B12) 1,000 MCG Tab PO SCH (15:25)
[2018-08-11] MEDS: Ascorbic Acid 500 MG Tab PO SCH (15:26)
[2018-08-11] MEDS: Bisacodyl 5 MG Tab PO SCH (15:26)
[2018-08-11] MEDS: Docusate Sodium 100 MG Cap PO SCH (15:26)
[2018-08-11] MEDS: Diltiazem 240 MG Cap.ER PO SCH (15:26)
[2018-08-11] MEDS: Potassium Chloride 20 MEQ Tab.ER PO SCH (15:36)
[2018-08-11] MEDS ORDERED: Potassium Chloride 20 MEQ Tab.ER PO ONE (15:45)
--- NOTE | 2018-08-11 19:59 | OR ---
DATE OF OPERATION: 08/11/2018 SURGEON: Anton Key MD PREOPERATIVE DIAGNOSIS: Gastrointestinal bleed. POSTOPERATIVE DIAGNOSIS: Gastrointestinal bleed. OPERATION PERFORMED: Esophagogastroduodenoscopy and colonoscopy, both diagnostic. ANESTHESIA: Procedural sedation. FINDINGS: I found no bleeding. He had a poor bowel prep on his colonoscopy. Upper endoscopy was unremarkable. PATHOLOGY: None. COMPLICATIONS: None. DISPOSITION: Stable at the end of the procedure. INDICATIONS: Bg is 78-year-old male who presented to our ED with a 12-hour history of GI bleeding. He had both combination of bright red blood as well as melena. He had several episodes of bloody stools. The patient had acute blood loss anemia. He was transfused 2 units yesterday. He had an adequate response. It appears he is no longer bleeding. I prepped him yesterday in anticipation of an EGD and a colonoscopy. He was fully informed of major risks of the procedure. These include but are not limited to perforation of the bowel, bleeding, the risk of anesthesia, and possibly need for further surgery. He gave informed consent for what was done. DESCRIPTION OF PROCEDURE: Bg was placed in a left lateral decubitus position. A bite block was placed. He was given procedural sedation. The endoscope was passed uneventfully into the proximal esophagus and advanced with gentle forward pressure. Keeping the lumen in view at all times, I advanced the scope into the stomach. I surveyed the stomach for any ulcerations, lesions, or any other potential sources of bleeding. There were none. There was no blood in the stomach. I advanced the scope to the duodenum, and this was also unremarkable. There was no ulceration in the first portion and no blood in the duodenum. I retroflexed the GE junction and found no hiatal hernia. He has no Holm's esophagus. I surveyed the mucosa of the stomach in its entirety and documented it photographically. I then withdrew the scope into the esophagus and thoroughly investigated the mucosa of the esophagus. On the way out, there was no evidence of any mucosal lesions in the esophagus. I then withdrew the scope and turned my attention to the colonoscopy. The patient was again placed in left lateral decubitus position. A digital rectal exam was performed. This was notable for some external hemorrhoids. There was no gross blood on my digital exam. His digital rectal exam was otherwise unremarkable. I advanced the scope with copious lubrications into the rectum. I advanced the scope with gentle forward pressure to the cecum. The cecum was documented photographically. I thoroughly investigated the mucosa of the colon from the cecum back to the anus. Finding included a poor bowel prep and pandiverticulosis concentrated mostly on the left side but extending all the way to the ascending colon. A thorough careful examination failed to demonstrate any large masses; however, this exam was limited significantly by a poor bowel prep, and I cannot rule out the existence of polyps. Potential sources of bleeding include the extensive diverticulosis which was identified on the colonoscopy but no blood clots, no oxidized blood, and no bright red blood were identified during the entirety of the exam. After a 6-minute exam, the scope was withdrawn. He was awakened from anesthesia and moved to recovery in stable condition. No pathology was harvested. ESTIMATED BLOOD LOSS: MMODAL /[id number]
--- NOTE | 2018-08-12 09:16 | PCM.DCSUM1 ---
Discharge Summary - Hospital Course HPI Initial Comments: This is a 78 yo elderly white male with past medical hx/o Impaired Hearing/ Vision, Atrial Fibrillation on Warfarin, HTN, Hx/o AL, S/p PRODUCTION MINER, GERD, Valvular, Insufficiency S/p Replacement, Hx/o TIA, and Psoriasis who comes in with complaints of rectal bleed with bowel movement that started in the past 24hrs associated with moderate flatulence. He had a similar episode in the past with benign work up. He is on Aspirin and Warfarin due to significant cardiac history. He did report at that time some lightheadedness but no chest pain or shortness of breath. He had 2 more rectal bleed overnight at Medical-Surgical floor. His initial work up shows a CBC remarkable for RBC of 3.04, Hgb of 10.8, Hct of 31.2, MCV of 102.6, MCH of 35.5, RDW of 47.3, and MPV of 9.0, Neutrophils of 65% , and Eosinophils of 8%. His initial coagulation studies show PT of 20.8 and INR or 1.93. His Chemistry is significant for NA of 135, BS of 116, Total Bilirubin of 1.6, and Albumin of 3.2. His chest x-ray report reads lungs otherwise clear with no acute parenchymal change. Diagnosis: Stroke: No - Discharge Data Discharge Date: 08/12/18 (Admit date: 08/08/18) Discharge Disposition: Home, Self-Care 01 Condition: Good - Discharge Diagnosis/Problem(s) (1) GI hemorrhage SNOMED Code(s): 03932761 ICD Code: K92.2 - GASTROINTESTINAL HEMORRHAGE, UNSPECIFIED Status: Resolved Priority: High Current Visit: Yes Qualifiers: GI bleed type/associated pathology: unspecified gastrointestinal hemorrhage type Qualified Code(s): K92.2 - Gastrointestinal hemorrhage, unspecified (2) Hypomagnesemia SNOMED Code(s): 900729500 ICD Code: E83.42 - HYPOMAGNESEMIA Status: Resolved Priority: High Current Visit: Yes (3) Warfarin-induced coagulopathy SNOMED Code(s): 03249292 ICD Code: D68.32 - HEMORRHAGIC DISORD D/T EXTRINSIC CIRCULATING ANTICOAGULANTS; T45.515A - ADVERSE EFFECT OF ANTICOAGULANTS, INITIAL ENCOUNTER Status: Resolved Priority: High Current Visit: Yes - Patient Summary/Data Consults: Consultations 08/08/18 00:41 Consult to Case Management/Manager Project Management [CONS] Routine Consult to Physician [CONS] Routine Consult to Spiritual Care [CONS] Routine OT Evaluation and Treatment [CONS] Routine PT Evaluation and Treatment [CONS] Routine Labs Pending at D/C: None Recommended Follow-up Testing/Procedures: Follow-up with PCP within 5-7 days of discharge, sooner if needed. Hospital Course: Assessment/Plan: Acute: GI Bleed - Hgb 10.8-->9.0-->8.6-->8.1-->8.5-->7.8-->9.9 (s/p 2 units)-->9.0-->9.6 - S/P transfusion - 2 units 08/10/18 - Bright red blood with bowel movements - Carries previous hx/o in the past with unrevealing work up - On Warfarin or Chronic Atrial Fibrillation - Heme+ Stool (Mucous with bright red blood) performed by ED provider - Hold Warfarin for now - Monitor H/H - Consult Dr. Key for further evaluation-->colonoscopy on 08/11/18 -Poor prep -Diffuse diverticula without active obvious bleeding Inactive: Subtherapeutic INR - INR 1.93 -->1.75-->1.39-->1.2 - Has had 2 more episode last night since admission - Daily INR - Holding warfarin 2/2 GI bleed as above Resolved: Hypomagnesemia--replace as needed. - Mg 1.6-->1.8-->1.6-->2.1 - 2/2 NPO status and GI loss - Replete and monitor Chronic: Impaired Hearing/Vision Atrial Fibrillation on Warfarin HTN Hx/o AL S/p PRODUCTION MINER GERD Valvular Insufficiency S/p Replacement Hx/o TIA Psoriasis Plan: Admitted overnight for OBS--> advanced to inpatient Routine AM Labs Resume Home Meds as ordered NPO until after colonoscopy -> resume usual diet Fall precautions GS consult with Dr. Shahid HYDE/VALERIE for d/c planning Code status: 1; PCP: Dr. Denny LOS>96 hours re: GI bleed, colonoscopy scheduled 08/11/18 Bg is brought in for a GI bleed. Hemoglobin did continue to trend downward as noted above and he was given 2 units. He was then seen by our surgeon, Dr. Key, who did perform a EGD and colonoscopy on him. EGD was essentially unremarkable however his bowel prep was very poor. He was noted to have gross diverticula throughout the colon but no obvious bleeding could be seen. He is on warfarin and aspirin daily and these were both held. His INR was low on arrival. He did have several episodes of hematochezia shortly after admission however he has not had any blood noted in his stool over the past few days. He has had a few bowel movements. He was evaluated by PT and OT who found him fit to return home with no services. He did see our dietitian as it was recommended that he eat some high-fiber foods. His magnesium and potassium were supplemented. Discussed risks of stopping his warfarin including blood clots and stroke. We also discussed the risks of continuing it and the bleeding restarting. His blood pressure has been on the low end of normal so we did discuss parameters on his Lasix and spironolactone. He was instructed to obtain a blood pressure machine and check this prior to taking these medications, holding it as directed. He was instructed to record his blood pressures and bring this with to his appointments. He should follow-up with his primary care provider in 5-7 days, sooner if needed. He was instructed to contact his PCP or return to the emergency room should symptoms return or worsen. He will discharge home today. - Patient Instructions Diet: Heart Healthy Diet Activity: As Tolerated Notify Provider of: Fever, Increased Pain, Nausea and/or Vomiting - Discharge Plan *PRESCRIPTION DRUG MONITORING PROGRAM REVIEWED*: No *COPY OF PRESCRIPTION DRUG MONITORING REPORT IN PATIENT ZHEN: No Home Medications: Home Meds Ascorbic Acid [Vitamin C] 500 mg PO DAILY 09/12/15 [History] Cholecalciferol (Vitamin D3) [Vitamin D3] 2,000 units PO DAILY 09/12/15 [History ] Cyanocobalamin/Folic Acid [Vitamin P55-Kkrtq Acid] 1 tab PO DAILY 09/12/15 [ History] Docusate Sodium [Colace] 100 mg PO BID 09/12/15 [History] Potassium Chloride 20 meq PO DAILY 09/12/15 [History] Propranolol HCl 40 mg PO BID 09/12/15 [History] Triamcinolone Acetonide [Triamcinolone Acetonide 0.1% Crm] 1 applic PO BID 09/11 [History] Simvastatin [Zocor] 20 mg PO DAILY 03/09/17 [History] Multivitamin With Minerals. 1 tab PO DAILY 03/15/17 [History] diphenhydrAMINE [Benadryl] 25 mg PO Q4H PRN 08/07/18 [History] guaiFENesin [Mucinex] 600 mg PO DAILY PRN 08/07/18 [History] Diltiazem HCl [Cardizem Cd] 240 mg PO DAILY 08/08/18 [History] Furosemide [Lasix] 100 mg PO DAILY #1 08/12/18 [Rx] Spironolactone [Aldactone] 25 mg PO DAILY #0 tab 08/12/18 [Rx] Oxygen Therapy Mode: Room Air Patient Handouts: Gastrointestinal Bleeding Forms: ED Department Discharge Referrals: Ricardo Denny MD [Primary Care Provider] - 08/25/18 1:00 pm (please attend the scheduled appointment with your primary care provider. if there are cancellations to get in sooner, the clinic will contact you.) - Discharge Summary/Plan Comment DC Time >30 min.: Yes (45 minutes ) - General Info Date of Service: 08/12/18 Admission Dx/Problem (Free Text: Admission Diagnosis/Problem Admission Diagnosis/Problem GI bleed not requiring more than 4 units of blood in 24 hours, ICU, or surgery Subjective Update: In to see Bg. We discussed discharge plan and what to do should symptoms return. He reports he's had a few bowel movements over the past few days with no blood noted. This is confirmed with nursing. No patient and nursing concerns and he reports he is excited to go home. He will be discharged today. Functional Status: Reports: Pain Controlled, Tolerating Diet, Ambulating, Urinating. Denies: New Symptoms - Review of Systems General: Reports: No Symptoms. Denies: Fever, Weakness, Fatigue, Malaise, Chills HEENT: Reports: No Symptoms. Denies: Headaches, Sore Throat Pulmonary: Reports: No Symptoms. Denies: Shortness of Breath, Cough, Sputum, Wheezing Cardiovascular: Reports: No Symptoms. Denies: Chest Pain, Palpitations, Orthopnea, Edema Gastrointestinal: Reports: No Symptoms. Denies: Abdominal Pain, Constipation, Diarrhea, Nausea, Vomiting Genitourinary: Reports: No Symptoms. Denies: Pain Musculoskeletal: Reports: No Symptoms Skin: Reports: No Symptoms Neurological: Reports: No Symptoms. Denies: Confusion, Difficulty Walking, Gait Disturbance Psychiatric: Reports: No Symptoms - Patient Data Vitals - Most Recent: Last Vital Signs Temp 97.5 F 08/12/18 03:45 Pulse 64 08/12/18 03:45 Resp 14 08/12/18 03:45 BP 107/66 08/12/18 03:45 Pulse Ox 95 08/12/18 03:45 Weight - Most Recent: 184 lb 14.4 oz I&O - Last 24 hours: Intake & Output 08/11/18 08/12/18 08/12/18 22:59 06:59 14:59 Intake Total 2827 1307 Balance 2827 1307 Lab Results - Last 24 hrs: Laboratory Results - last 24 hr 08/12/18 08/12/18 Range/Units 06:22 06:22 WBC 4.15 L (4.23-9.07) K/mm3 RBC 2.72 L (4.63-6.08) M/mm3 Hgb 9.0 L (13.7-17.5) gm/L Hct 27.9 L (40.1-51.0) % MCV 102.6 H (79.0-92.2) fl MCH 33.1 H (25.7-32.2) pg MCHC 32.3 (32.2-35.5) g/dl RDW Std Deviation 63.9 H (35.1-43.9) fL Plt Count 167 (163-337) K/mm3 MPV 9.4 (9.4-12.3) fl Neut % (Auto) 51.4 (34.0-67.9) % Lymph % (Auto) 27.0 (21.8-53.1) % Irion % (Auto) 16.9 H (5.3-12.2) % Eos % (Auto) 4.3 (0.8-7.0) Baso % (Auto) 0.2 (0.1-1.2) % Neut # (Auto) 2.13 (1.78-5.38) K/mm3 Lymph # (Auto) 1.12 L (1.32-3.57) K/mm3 Irion # (Auto) 0.70 (0.30-0.82) K/mm3 Eos # (Auto) 0.18 (0.04-0.54) K/mm3 Baso # (Auto) 0.01 (0.01-0.08) K/mm3 Manual Slide Review Abnormal smear Sodium 137 (136-145) mEq/L Potassium 3.9 (3.5-5.1) mEq/L Chloride 105 (98-107) mEq/L Carbon Dioxide 27 (21-32) mEq/L Anion Gap 8.9 (5-15) BUN 12 (7-18) mg/dL Creatinine 0.8 (0.7-1.3) mg/dL Est Cr Clr Drug Dosing 77.33 mL/min Estimated GFR (MDRD) > 60 (>60) mL/min BUN/Creatinine Ratio 15.0 (14-18) Glucose 92 (83-115) mg/dL Calcium 8.6 (8.5-10.1) mg/dL Magnesium 2.1 (1.8-2.4) mg/dl Med Orders - Current: Current Medications Hydrocodone Bitart/Acetaminophen ([place] 325-5 Mg) 1 tab PO Q4H PRN PRN Reason: Pain (moderate 4-6) Albuterol/Ipratropium (Duoneb 3.0-0.5 Mg/3 Ml) 3 ml NEB Q4H PRN PRN Reason: Shortness Of Breath/wheezing Ascorbic Acid (Vitamin C) 500 mg PO DAILY [facility] Last Admin: 08/11/18 15:26 Dose: 500 mg Bisacodyl (Dulcolax) 10 mg PO DAILY [facility] Last Admin: 08/11/18 15:26 Dose: 10 mg Cholecalciferol (Vitamin D3) 2,000 units PO DAILY [facility] Last Admin: 08/11/18 15:25 Dose: 2,000 units Cyanocobalamin (Vitamin B12) 500 mcg PO DAILY [facility] Last Admin: 08/11/18 15:25 Dose: 500 mcg Diltiazem HCl (Dilacor Xr) 240 mg PO DAILY [facility] Last Admin: 08/11/18 15:26 Dose: 240 mg Diphenhydramine HCl (Benadryl) 25 mg PO Q4H PRN PRN Reason: Itching Docusate Sodium (Colace) 100 mg PO DAILY [facility] Last Admin: 08/11/18 15:26 Dose: 100 mg Folic Acid (Folic Acid) 0.5 mg PO DAILY [facility] Last Admin: 08/11/18 15:25 Dose: 0.5 mg Guaifenesin (Mucinex) 600 mg PO DAILY PRN PRN Reason: Allergies Hydralazine HCl (Apresoline) 20 mg IVPUSH Q4H PRN PRN Reason: Hypertension Hydromorphone HCl (Dilaudid) 0.25 mg IVPUSH Q2H PRN PRN Reason: Pain (severe 7-10) Sodium Chloride (Normal Saline) 1,000 mls @ 50 mls/hr IV ASDIRECTED [facility] Last Admin: 08/11/18 20:45 Dose: 50 mls/hr Lorazepam (Ativan) 0.5 mg IV Q6H PRN PRN Reason: Anxiety Metoprolol Tartrate (Lopressor) 5 mg IVPUSH Q4H PRN PRN Reason: Tachycardia Multivitamins (Thera) 1 each PO DAILY [facility] Last Admin: 08/11/18 15:24 Dose: 1 each Propranolol HCl (Inderal) 40 mg PO BID [facility] Last Admin: 08/11/18 20:44 Dose: 40 mg Simvastatin (Zocor) 20 mg PO DAILY [facility] Last Admin: 08/11/18 15:25 Dose: 20 mg Spironolactone (Aldactone) 25 mg PO DAILY [facility] Last Admin: 08/11/18 15:25 Dose: 25 mg Temazepam (Restoril) 7.5 mg PO BEDTIME PRN PRN Reason: Sleep Triamcinolone Acetonide (Triamcinolone Acetonide 0.1% Crm) 0 gm TOP BID [facility] Last Admin: 08/11/18 20:45 Dose: 1 applic Discontinued Medications Diltiazem HCl (Dilacor Xr) 240 mg PO DAILY [facility] Last Admin: 08/08/18 13:47 Dose: Not Given Diltiazem HCl (Dilacor Xr) 240 mg PO 1800 [facility] Last Admin: 08/08/18 17:43 Dose: 240 mg Furosemide (Lasix) 100 mg PO DAILY [facility] Last Admin: 08/10/18 08:36 Dose: 100 mg Furosemide (Lasix) 40 mg IVPUSH ONETIME ONE Stop: 08/10/18 13:01 Last Admin: 08/10/18 14:00 Dose: 40 mg Magnesium Sulfate 2 gm/ Premix 50 mls @ 25 mls/hr IV ONETIME ONE Stop: 08/08/18 11:29 Last Admin: 08/08/18 11:13 Dose: 25 mls/hr Ferric Sodium Gluconate Complex 250 mg/ Sodium Chloride 120 mls @ 60 mls/hr IV ONETIME ONE Stop: 08/09/18 11:59 Last Admin: 08/09/18 10:10 Dose: 60 mls/hr Sodium Chloride (Normal Saline) 500 mls @ 100 mls/hr IV ASDIRECTED [facility] Last Admin: 08/10/18 10:55 Dose: 100 mls/hr Magnesium Sulfate 2 gm/ Premix 50 mls @ 25 mls/hr IV ONETIME ONE Stop: 08/11/18 14:29 Last Admin: 08/11/18 12:09 Dose: 25 mls/hr Magnesium Sulfate (Pharmacy To Dose - Magnesium Replacement) 0 dose .XX ASDIRECTED PRN PRN Reason: RX TO WATCH MAG Polyethylene Glycol/Electrolytes (Golytely) 4,000 ml PO ONETIME ONE Stop: 08/10/18 18:01 Last Admin: 08/10/18 17:40 Dose: 4 liter Potassium Chloride (Pharmacy To Dose - Potassium Replacement) 0 dose .XX ASDIRECTED PRN PRN Reason: RX TO WATCH K Potassium Chloride (Klor-Con M20) 40 meq PO BID [facility] Stop: 08/11/18 09:01 Last Admin: 08/11/18 15:36 Dose: Not Given Potassium Chloride (Klor-Con M20) 40 meq PO ONETIME ONE Stop: 08/11/18 15:46 Last Admin: 08/11/18 15:36 Dose: 40 meq Propofol (Diprivan 20 Ml) Confirm Administered Dose 400 mg .ROUTE .STK-MED ONE Stop: 08/11/18 10:55 - Exam Quality Assessment: Reports: DVT Prophylaxis General: Reports: Alert, Oriented, Cooperative, No Acute Distress HEENT: Reports: Pupils Equal, Pupils Reactive, EOMI, Mucous Membr. Moist/[place] Neck: Reports: Supple, Trachea Midline, No JVD Lungs: Reports: Clear to Auscultation, Normal Respiratory Effort Cardiovascular: Reports: Irregular Rhythm GI/Abdominal Exam: Normal Bowel Sounds, Soft, Non-Tender, No Organomegaly, No Distention (Male) Exam: Deferred Rectal (Males) Exam: Deferred Back Exam: Reports: Normal Inspection, Full Range of Motion Extremities: Normal Inspection, Normal Range of Motion, Non-Tender, No Pedal Edema, Normal Capillary Refill Skin: Reports: Warm, Dry, Intact Neurological: Reports: No New Focal Deficit Psy/Mental Status: Reports: Alert, Normal Affect, Normal Mood
[2018-08-12] MEDS: Docusate Sodium 100 MG Cap PO SCH (09:33)
[2018-08-12] MEDS: Ascorbic Acid 500 MG Tab PO SCH (09:33)
[2018-08-12] MEDS: Bisacodyl 5 MG Tab PO SCH (09:34)
[2018-08-12] MEDS: Simvastatin 20 MG Tab PO SCH (09:34)
[2018-08-12] MEDS: Spironolactone 25 MG Tab PO SCH (09:35)
[2018-08-12] MEDS: Multivitamins,Therapeutic Tab PO SCH (09:35)
[2018-08-12] MEDS: Cholecalciferol (Vitamin D3) 1,000 Unit Tab PO SCH (09:35)
[2018-08-12] MEDS: Folic Acid 1 MG Tab PO SCH (09:37)
[2018-08-12] MEDS: Cyanocobalamin (Vitamin B12) 1,000 MCG Tab PO SCH (09:37)
[2018-08-12] MEDS: Triamcinolone Acetonide 0.1% Crm 15 GM Tube TOP SCH (09:38)
[2018-08-12] MEDS: Diltiazem 240 MG Cap.ER PO SCH (09:39)
[2018-08-12] MEDS: Propranolol 40 MG Tab PO SCH (09:39)
[2018-08-12 16:20] VITALS: BP 133/57
== END 2018-08-12 18:00 | disposition home or self-care (01) | DRG 378 ==
LOC: JD.ED 21:17 → JD.MS 23:56 → OBSVTOIN 08-08 11:32
PROVIDERS: ADMIT Internal Medicine; ATTEND Internal Medicine
PROC: 30233N1 Transfusion of Nonautologous Red Blood Cells into Peripheral Vein, Percutaneous Approach (ICD-10-PCS; principal; 2018-08-10)
PROC: 0DJ08ZZ Inspection of Upper Intestinal Tract, Via Natural or Artificial Opening Endoscopic (ICD-10-PCS; 2018-08-11)
PROC: 0DJD8ZZ Inspection of Lower Intestinal Tract, Via Natural or Artificial Opening Endoscopic (ICD-10-PCS; 2018-08-11)
DX: K92.2 Gastrointestinal hemorrhage, unspecified (principal); I48.91 Unspecified atrial fibrillation; D62 Acute posthemorrhagic anemia; I25.10 Atherosclerotic heart disease of native coronary artery without angina pectoris; I10 Essential (primary) hypertension; K21.9 Gastro-esophageal reflux disease without esophagitis; L40.9 Psoriasis, unspecified; E83.42 Hypomagnesemia; K64.4 Residual hemorrhoidal skin tags; K57.30 Diverticulosis of large intestine without perforation or abscess without bleeding; I48.2 Chronic atrial fibrillation; R79.1 Abnormal coagulation profile; H91.90 Unspecified hearing loss, unspecified ear; H54.7 Unspecified visual loss; I25.2 Old myocardial infarction; Z95.2 Presence of prosthetic heart valve; Z90.49 Acquired absence of other specified parts of digestive tract; Z88.8 Allergy status to other drugs, medicaments and biological substances; Z79.01 Long term (current) use of anticoagulants; R42 Dizziness and giddiness; K62.5 Hemorrhage of anus and rectum; Z79.82 Long term (current) use of aspirin; Z79.899 Other long term (current) drug therapy; Z87.01 Personal history of pneumonia (recurrent); Z86.73 Personal history of transient ischemic attack (TIA), and cerebral infarction without residual deficits; Z95.1 Presence of aortocoronary bypass graft; Z98.61 Coronary angioplasty status; Z95.0 Presence of cardiac pacemaker
CPT/HCPCS: 36415 ×2; 74022; 80048; 80053; 83735; 85007; 85025; 85027; 85610 ×2; 93005; 97161; 97165; 99285; J3475; 00813; 36430; 83540; 84466; 85014; 85018; 86850; 86900; 86901; 86922; 96365; A9270-GY; G0378; J1940; J2704; J2916; J7030; J7040; P9016

== ENCOUNTER 2020-05-07 01:31 | Emergency (ER) | payer MEDICARE, OTHER ==
[2020-05-07 01:51] VITALS: BP 135/82; PULSE 55
[2020-05-07] MEDS ORDERED: Lidocaine 1% 20 ML MDV INJECT ONE (01:51)
[2020-05-07] MEDS ORDERED: Lidocaine 1% 10 ML MDV ONE (01:56)
--- NOTE | 2020-05-07 02:20 | EDM.PDOC ---
ED HPI GENERAL MEDICAL PROBLEM - General Chief Complaint: Laceration Stated Complaint: INJURED RIGHT ARM Time Seen by Provider: 05/07/20 01:33 Source of Information: Reports: Patient History Limitations: Reports: No Limitations - History of Present Illness INITIAL COMMENTS - FREE TEXT/NARRATIVE: This is a 79-year-old male. This evening as he was going up the steps to his house it was slippery niece fell hitting his right elbow causing a laceration. He is on Coumadin but the bleeding is controlled. He is got a 6 cm laceration to the right elbow. He is up-to-date with his tetanus he denies any other acute symptoms. - Related Data Allergies Allergy/AdvReac Type Severity Reaction Status Date / Time steroids Allergy Rash Uncoded 05/07/20 01:51 Home Meds: Home Meds Ascorbic Acid [Vitamin C] 500 mg PO DAILY 09/12/15 [History] Cholecalciferol (Vitamin D3) [Vitamin D3] 2,000 units PO DAILY 09/12/15 [History] Cyanocobalamin/Folic Acid [Vitamin T15-Rirtp Acid] 1 tab PO DAILY 09/12/15 [History] Docusate Sodium [Colace] 100 mg PO BID 09/12/15 [History] Potassium Chloride 20 meq PO DAILY 09/12/15 [History] Propranolol HCl 40 mg PO BID 09/12/15 [History] Triamcinolone Acetonide [Triamcinolone Acetonide 0.1% Crm] 1 applic PO BID 09/12/15 [History] Simvastatin [Zocor] 20 mg PO DAILY 03/09/17 [History] Multivitamin With Minerals. 1 tab PO DAILY 03/15/17 [History] diphenhydrAMINE [Benadryl] 25 mg PO Q4H PRN 08/07/18 [History] guaiFENesin [Mucinex] 600 mg PO DAILY PRN 08/07/18 [History] dilTIAZem HCL [Cardizem Cd] 240 mg PO DAILY 08/08/18 [History] Furosemide [Lasix] 100 mg PO DAILY #1 08/12/18 [Rx] Spironolactone [Aldactone] 25 mg PO DAILY #0 tab 08/12/18 [Rx] Past Medical History HEENT History: Reports: Hard of Hearing, Impaired Vision Cardiovascular History: Reports: Afib, Bypass, Hypertension, MD, Pacemaker Respiratory History: Reports: Pneumonia, Recurrent Gastrointestinal History: Reports: GERD, GI Bleed Neurological History: Reports: TIA Dermatologic History: Reports: Psoriasis - Infectious Disease History Infectious Disease History: Reports: Chicken Pox, Measles, Mumps - Past Surgical History HEENT Surgical History: Reports: LASIK, Other (See Below) Other HEENT Surgeries/Procedures: laser surgery for loss of vision Cardiovascular Surgical History: Reports: AICD, Coronary Artery Bypass, Percutaneous Transluminal Angioplasty, Valve Replacement Respiratory Surgical History: Reports: None GI Surgical History: Reports: Cholecystectomy Neurological Surgical History: Reports: None Musculoskeletal Surgical History: Reports: Shoulder Surgery Dermatological Surgical History: Reports: None Social & Family History - Family History Family Medical History: No Pertinent Family History - Tobacco Use Tobacco Use Status *Q: Never Tobacco User - Caffeine Use Caffeine Use: Reports: Soda - Recreational Drug Use Recreational Drug Use: No ED ROS GENERAL - Review of Systems Review Of Systems: See Below Constitutional: Denies: Fever, Chills HEENT: Reports: No Symptoms Respiratory: Denies: Shortness of Breath, Cough Cardiovascular: Reports: No Symptoms Endocrine: Reports: No Symptoms GI/Abdominal: Reports: No Symptoms : Reports: No Symptoms Musculoskeletal: Reports: No Symptoms Skin: Reports: Other (As per HPI) Neurological: Reports: No Symptoms Psychiatric: Reports: No Symptoms Hematologic/Lymphatic: Reports: Easy Bleeding ED EXAM, SKIN/RASH Exam: See Below Exam Limited By: No Limitations General Appearance: Alert, WD/WN, No Apparent Distress Eye Exam: Bilateral Eye: Normal Inspection Ears: Normal External Exam Nose: Normal Inspection Throat/Mouth: Normal Inspection, Normal Lips, Normal Voice, No Airway Compromise Head: Normocephalic Neck: Supple Respiratory/Chest: No Respiratory Distress, Lungs Clear, Normal Breath Sounds Cardiovascular: Regular Rate, Rhythm, No Murmur GI/Abdominal: Soft Back Exam: Full Range of Motion Extremities: Normal Range of Motion, Other (On the very tip of his elbow he is got a 6 cm laceration sort of U-shaped on the posterior elbow, it is into the subcutaneous tissue but it is more of a large flap laceration. He has full range of motion of that elbow and neurovascular is intact in that digit right upper extremity distally) Neurological: Alert, Oriented Psychiatric: Normal Affect, Normal Mood Skin: Warm, Dry Location, Skin: Upper Extremity, Right, Other (Laceration) ED SKIN PROCEDURES - Laceration/Wound Repair Right Elbow Appearance: Subcutaneous, Clean, Other (U-shaped) Distal NVT: Neuro & Vascular Intact Anesthetic Type: Local Local Anesthesia - Lidocaine (Xylocaine): 1% Plain Local Anesthetic Volume: Other (12 cc) Skin Prep: Chlorhexidine (Hibiciens), Providone-Iodine (Betadine) Exploration/Debridement/Repair: Wound Explored Closed with: Sutures Lac/Wound length In cm: 6 Suture Size: 4-0 # of Sutures: 6 Drain Placement: No Sterile Dressing Applied: Nurse Tetanus Status Addressed: Yes Complications: No Course - Vital Signs Last Recorded V/S: Last Vital Signs Temp 95.7 F L 05/07/20 01:45 Pulse 55 L 05/07/20 01:45 Resp 14 05/07/20 01:45 BP 135/82 05/07/20 01:45 Pulse Ox 99 05/07/20 01:45 - Orders/Labs/Meds Meds: Medications Discontinued Medications Generic Name Dose Route Start Last Admin Trade Name Majo PRN Reason Stop Dose Admin Lidocaine HCl 20 ml 05/07/20 01:51 05/07/20 02:54 Xylocaine 1% INJECT 05/07/20 01:52 Not Given ONETIME ONE Lidocaine HCl Confirm 05/07/20 01:56 05/07/20 02:30 Xylocaine 1% Administered 05/07/20 01:57 20 ml Dose Administration 20 ml .ROUTE .STK-MED ONE Departure - Departure Time of Disposition: 02:18 Disposition: Home, Self-Care 01 Condition: Good Clinical Impression: Laceration of elbow, right Qualifiers: Encounter type: initial encounter Qualified Code(s): S51.011A - Laceration without foreign body of right elbow, initial encounter - Discharge Information *PRESCRIPTION DRUG MONITORING PROGRAM REVIEWED*: Not Applicable *COPY OF PRESCRIPTION DRUG MONITORING REPORT IN PATIENT ZHEN: Not Applicable Instructions: Laceration Care, Adult, Sutured Wound Care, [id number] Referrals: Ricardo Denny MD [Primary Care Provider] - Forms: ED Department Discharge Additional Instructions: Keep the pressure dressing on the right elbow until noon on Saturday, then you may take the dressing off carefully and put some triple antibiotic ointment on the wound and then wrap it gently, you may use your elbow is much as you like but just remember is going to be sore when the stitches pulled on the cut, follow-up with your family doctor in 10 days for suture removal, watch for infection any signs of yellow drainage or redness or increased swelling then see your family doctor sooner or return to the ER Sepsis Event Note (ED) - Evaluation Sepsis Screening Result: No Definite Risk - Focused Exam Vital Signs: Vital Signs Temp Pulse Resp BP Pulse Ox 05/07/20 01:45 95.7 F L 55 L 14 135/82 99
== END 2020-05-07 02:50 | disposition home or self-care (01) ==
LOC: JD.ED 01:31
DX: S51.011A Laceration without foreign body of right elbow, initial encounter (principal); I48.91 Unspecified atrial fibrillation; I10 Essential (primary) hypertension; I25.2 Old myocardial infarction; Z95.0 Presence of cardiac pacemaker; Z88.8 Allergy status to other drugs, medicaments and biological substances; Z79.899 Other long term (current) drug therapy; Z79.01 Long term (current) use of anticoagulants; W10.9XXA Fall (on) (from) unspecified stairs and steps, initial encounter; Y92.009 Unspecified place in unspecified non-institutional (private) residence as the place of occurrence of the external cause
CPT/HCPCS: 12002; 99282; J2001

== ENCOUNTER 2020-09-10 09:01 | Emergency (ER) | payer MEDICARE, OTHER ==
--- NOTE | 2020-09-10 11:32 | EDM.PDOC ---
ED HPI GENERAL MEDICAL PROBLEM - General Chief Complaint: Trauma Stated Complaint: LT HAND INJURY Time Seen by Provider: 09/10/20 09:30 Source of Information: Reports: Patient History Limitations: Reports: No Limitations - History of Present Illness INITIAL COMMENTS - FREE TEXT/NARRATIVE: The patient presents with a fall and head injury and left hand and knee injury. He was on a ladder last night and he fell. He does not remember hitting his head but he has abrasions to his nose and forehead. He has abrasions to his left wrist and hand. He also has some pain to the left knee. He had no LOC. He has no headache now or neck pain. He has no chest pain, shortness of breath, abdominal pain, nausea or vomiting. The patient is on coumadin. Onset: Sudden Duration: Day(s): (last night) Location: Reports: Upper Extremity, Left Quality: Reports: Sharp Severity: Moderate Improves with: Reports: Immobilization Worsens with: Reports: Movement Context: Reports: Trauma (fell off of a ladder) Associated Symptoms: Reports: No Other Symptoms Left Hand Pain Score (Numeric/FACES): 5 - Related Data Allergies Allergy/AdvReac Type Severity Reaction Status Date / Time steroids Allergy Rash Uncoded 09/10/20 09:14 Home Meds: Home Meds Ascorbic Acid [Vitamin C] 500 mg PO DAILY 09/12/15 [History] Cholecalciferol (Vitamin D3) [Vitamin D3] 2,000 units PO DAILY 09/12/15 [History] Cyanocobalamin/Folic Acid [Vitamin X18-Kuods Acid] 1 tab PO DAILY 09/12/15 [History] Docusate Sodium [Colace] 100 mg PO BID 09/12/15 [History] Potassium Chloride 20 meq PO DAILY 09/12/15 [History] Propranolol HCl 40 mg PO BID 09/12/15 [History] Triamcinolone Acetonide [Triamcinolone Acetonide 0.1% Crm] 1 applic PO BID 09/12/15 [History] Simvastatin [Zocor] 20 mg PO DAILY 03/09/17 [History] Multivitamin With Minerals. 1 tab PO DAILY 03/15/17 [History] diphenhydrAMINE [Benadryl] 25 mg PO Q4H PRN 08/07/18 [History] guaiFENesin [Mucinex] 600 mg PO DAILY PRN 08/07/18 [History] dilTIAZem HCL [Cardizem Cd] 240 mg PO DAILY 08/08/18 [History] Furosemide [Lasix] 100 mg PO DAILY #1 08/12/18 [Rx] Spironolactone [Aldactone] 25 mg PO DAILY #0 tab 08/12/18 [Rx] Past Medical History HEENT History: Reports: Hard of Hearing, Impaired Vision Cardiovascular History: Reports: Afib, Bypass, Hypertension, ND, Pacemaker Respiratory History: Reports: Pneumonia, Recurrent Gastrointestinal History: Reports: GERD, GI Bleed Neurological History: Reports: TIA Dermatologic History: Reports: Psoriasis - Infectious Disease History Infectious Disease History: Reports: Chicken Pox, Measles, Mumps - Past Surgical History HEENT Surgical History: Reports: LASIK, Other (See Below) Other HEENT Surgeries/Procedures: laser surgery for loss of vision Cardiovascular Surgical History: Reports: AICD, Coronary Artery Bypass, Percutaneous Transluminal Angioplasty, Valve Replacement Respiratory Surgical History: Reports: None GI Surgical History: Reports: Cholecystectomy Neurological Surgical History: Reports: None Musculoskeletal Surgical History: Reports: Shoulder Surgery Dermatological Surgical History: Reports: None Social & Family History - Family History Family Medical History: No Pertinent Family History - Tobacco Use Tobacco Use Status *Q: Never Tobacco User Second Hand Smoke Exposure: No - Caffeine Use Caffeine Use: Reports: Soda - Recreational Drug Use Recreational Drug Use: No Review of Systems - Review of Systems Review Of Systems: See Below Constitutional: Reports: No Symptoms Eyes: Reports: No Symptoms Ears: Reports: No Symptoms Nose: Reports: No Symptoms Mouth/Throat: Reports: No Symptoms Respiratory: Reports: No Symptoms Cardiovascular: Reports: No Symptoms GI/Abdominal: Reports: No Symptoms Genitourinary: Reports: No Symptoms Musculoskeletal: Reports: Other (skin tears and pain to the left wrist and hand) ED EXAM, GENERAL - Physical Exam Exam: See Below Exam Limited By: No Limitations General Appearance: Alert, No Apparent Distress Ears: Normal External Exam Nose: Other (abrasion to the nose) Head: Other (abrasions to the face and nose) Neck: Normal Inspection, Supple, Non-Tender Respiratory/Chest: No Respiratory Distress, Lungs Clear, Normal Breath Sounds Cardiovascular: Regular Rate, Rhythm, No Edema, No Murmur GI/Abdominal: Soft, Non-Tender, No Organomegaly, No Mass Extremities: Normal Inspection Neurological: Alert, Oriented, No Motor/Sensory Deficits Course - Vital Signs Last Recorded V/S: Last Vital Signs Temp 97.9 F 09/10/20 09:12 Pulse 81 09/10/20 09:12 Resp 16 09/10/20 09:12 BP 140/71 09/10/20 09:12 Pulse Ox 96 09/10/20 09:12 - Orders/Labs/Meds Orders: Active Orders 24 hr Category Date Time Status Head wo Cont [CT] Stat Exams 09/10/20 09:37 Taken Wrist Comp Min 3V Lt [CR] Stat Exams 09/10/20 09:38 Taken - Re-Assessments/Exams Free Text/Narrative Re-Assessment/Exam: 09/10/20 11:[address] of his head and an x-ray of his left wrist. The CT of his head shows atrophy and nonspecific chronic white matter change. No acute intracranial abnormality identified. If clinical symptoms persist, follow-up CT scan or MRI may be useful. The x-ray of his hand looks good. My nurse cleaned and dressed the skin tears on his left wrist and hand. I will give him a wrist splint for the sprain. Departure - Departure Time of Disposition: 11:35 Disposition: Home, Self-Care 01 Condition: Good Clinical Impression: Skin tear of left upper extremity Fall Qualifiers: Encounter type: initial encounter Qualified Code(s): W19.XXXA - Unspecified fall, initial encounter Left wrist sprain Qualifiers: Encounter type: initial encounter Qualified Code(s): S63.502A - Unspecified sprain of left wrist, initial encounter - Discharge Information *PRESCRIPTION DRUG MONITORING PROGRAM REVIEWED*: Not Applicable *COPY OF PRESCRIPTION DRUG MONITORING REPORT IN PATIENT ZHEN: Not Applicable Referrals: Ricardo Denny MD [Primary Care Provider] - 1 Week Additional Instructions: Clean the skin tears with warms soapy water 2 times per day and apply antibiotic ointment after. Do this for 3 to 5 days and then leave it open to air. Wear the splint to support your wrist and to avoid further injury. Ice your wrist for 15 minutes 3 times per day for 2 days. Take tylenol as needed for pain. Follow up with Dr Denny within a week. Please return if you are worse. Sepsis Event Note (ED) - Evaluation Sepsis Screening Result: No Definite Risk - Focused Exam Vital Signs: Vital Signs Temp Pulse Resp BP Pulse Ox 09/10/20 09:12 97.9 F 81 16 140/71 96 - My Orders Last 24 Hours: My Active Orders 09/10/20 09:37 Head wo Cont [CT] Stat 09/10/20 09:38 Wrist Comp Min 3V Lt [CR] Stat - Assessment/Plan Last 24 Hours: My Active Orders 09/10/20 09:37 Head wo Cont [CT] Stat 09/10/20 09:38 Wrist Comp Min 3V Lt [CR] Stat
[2020-09-10 11:50] VITALS: BP 134/70; PULSE 75
--- NOTE | 2020-09-12 11:22 | CR ---
Left wrist: 4 views of the left wrist were obtained. Comparison: No prior wrist study is available. Vascular calcification is noted. Joint spaces within the wrist are preserved. No acute fracture, dislocation or other bony abnormality is appreciated. Impression: 1. Vascular calcification. 2. No acute osseous abnormality is appreciated on left wrist exam. Diagnostic code #2
--- NOTE | 2020-09-12 11:24 | CT ---
Head CT Technique: Multiple axial sections through the brain were obtained. Intravenous contrast was not utilized. Reconstructed coronal and sagittal images were obtained. Comparison: No prior intracranial imaging is available. Findings: Ventricles along with basal cisterns and sulci over the convexities are mildly prominent. Very slight diminished density is noted within the periventricular white matter compatible with small vessel ischemic demyelination change. No other abnormal parenchymal densities are seen. No evidence of intracranial hemorrhage. No midline shift or mass-effect is appreciated. Bone window settings were reviewed. Visualized mastoid sinuses and paranasal sinuses show nothing acute. Slight atherosclerotic calcification is seen within the carotid siphon. Impression: 1. Mild senescent change as noted above. 2. No acute intracranial abnormality is appreciated. Diagnostic code #2 I agree with preliminary report from [facility], finalized on 09/10/20, 12:02 PM CDT, code 1
== END 2020-09-10 11:45 | disposition home or self-care (01) ==
LOC: JD.ED 09:01
DX: S61.512A Laceration without foreign body of left wrist, initial encounter (principal); S61.412A Laceration without foreign body of left hand, initial encounter; S00.31XA Abrasion of nose, initial encounter; I48.91 Unspecified atrial fibrillation; I10 Essential (primary) hypertension; I25.2 Old myocardial infarction; Z86.73 Personal history of transient ischemic attack (TIA), and cerebral infarction without residual deficits; Z88.8 Allergy status to other drugs, medicaments and biological substances; W11.XXXA Fall on and from ladder, initial encounter; Z92.29 Personal history of other drug therapy; Z79.01 Long term (current) use of anticoagulants; Z91.81 History of falling
CPT/HCPCS: 70450; 70450-26; 73110-26-LT; 73110-LT; 99284; 99284-25

== ENCOUNTER 2020-12-21 11:21 | Emergency (ER) | payer OTHER, MEDICARE ==
[2020-12-21] MEDS ORDERED: Dextrose 5%-0.9% NaCl 1,000 ML IV SCH (12:15)
--- NOTE | 2020-12-21 12:18 | EDM.PDOC ---
ED HPI GENERAL MEDICAL PROBLEM - General Chief Complaint: Lower Extremity Injury/Pain Stated Complaint: LT KNEE INJURY SENT BY [facility] Time Seen by Provider: 12/21/20 12:07 Source of Information: Reports: Patient History Limitations: Reports: No Limitations - History of Present Illness INITIAL COMMENTS - FREE TEXT/NARRATIVE: 80-year-old male presents to the ED from the occupational health clinic operated by [facility] here in [place]. Patient reports he had a direct blow to his left knee when he struck a 3 step ladder in the workplace at [employer] on Saturday around 1600 hrs. in the afternoon. He had it wrapped with an Greg wrap and comes to the emergency room this morning with marked erythema of the entire left lower leg including the knee and it spreading up towards his groin. He denies any fever but does have some chills. He has not eaten yet today but states that is not abnormal for him. Patient denies being diabetic. Patient by history is on high-dose furosemide 100 mg daily and Aldactone 25 mg daily. Patient also reports breakdown of the skin on his left heel of his foot which he has had covered with a dressing for the last few days. He denies any abrasion or open wound to the left knee from injury on Saturday, December 19. He has never had a DVT in the past. Onset: Sudden Onset Date: 12/20/20 (Mild erythema of the knee yesterday marked erythema of the entire leg today) Duration: Hour(s):, Constant, Getting Worse Location: Reports: Lower Extremity, Left Quality: Reports: Ache, Throbbing, Other (Occasional sharp stabbing lightening bolt pain suggesting neurogenic pain.) Severity: Moderate Improves with: Reports: None Worsens with: Reports: None Context: Denies: Activity, Exercise, Lifting, Sick Contact, Trauma, Other Associated Symptoms: Denies: No Other Symptoms, Confusion, Chest Pain, cough w sputum, Diaphoresis, Fever/Chills, Headaches, Loss of Appetite, Malaise, Nausea/Vomiting, Rash, Seizure, Shortness of Breath, Syncope, Weakness Left Knee Pain Score (Numeric/FACES): 8 - Related Data Allergies Allergy/AdvReac Type Severity Reaction Status Date / Time steroids Allergy Rash Uncoded 12/21/20 11:36 Home Meds: Home Meds Ascorbic Acid [Vitamin C] 500 mg PO DAILY 09/12/15 [History] Cholecalciferol (Vitamin D3) [Vitamin D3] 2,000 units PO DAILY 09/12/15 [History] Cyanocobalamin/Folic Acid [Vitamin S56-Tdsky Acid] 1 tab PO DAILY 09/12/15 [History] Docusate Sodium [Colace] 100 mg PO BID 09/12/15 [History] Potassium Chloride 20 meq PO DAILY 09/12/15 [History] Propranolol HCl 40 mg PO BID 09/12/15 [History] Triamcinolone Acetonide [Triamcinolone Acetonide 0.1% Crm] 1 applic PO BID 09/12/15 [History] Simvastatin [Zocor] 20 mg PO DAILY 03/09/17 [History] Multivitamin With Minerals. 1 tab PO DAILY 03/15/17 [History] diphenhydrAMINE [Benadryl] 25 mg PO Q4H PRN 08/07/18 [History] dilTIAZem HCL [Cardizem Cd] 240 mg PO DAILY 08/08/18 [History] Furosemide [Lasix] 100 mg PO DAILY #1 08/12/18 [Rx] Spironolactone [Aldactone] 25 mg PO DAILY #0 tab 08/12/18 [Rx] Doxycycline [Vibra-Tabs] 100 mg PO Q12HR #20 tab 12/21/20 [Rx] Spironolactone [Aldactone] 100 mg PO BID #60 tablet 12/21/20 [Rx] Past Medical History HEENT History: Reports: Hard of Hearing, Impaired Vision Cardiovascular History: Reports: Afib, Bypass, Hypertension, VT, Pacemaker, Other (See Below) (Chronic dependent edema.) Respiratory History: Reports: Pneumonia, Recurrent Gastrointestinal History: Reports: GERD, GI Bleed Neurological History: Reports: TIA Psychiatric History: Reports: None Hematologic History: Reports: None Immunologic History: Reports: None Oncologic (Cancer) History: Reports: None Dermatologic History: Reports: Psoriasis - Infectious Disease History Infectious Disease History: Reports: Chicken Pox, Measles, Mumps - Past Surgical History Head Surgeries/Procedures: Reports: None HEENT Surgical History: Reports: LASIK, Other (See Below) Other HEENT Surgeries/Procedures: laser surgery for loss of vision Cardiovascular Surgical History: Reports: AICD, Coronary Artery Bypass, Percutaneous Transluminal Angioplasty, Valve Replacement Respiratory Surgical History: Reports: None GI Surgical History: Reports: Cholecystectomy Neurological Surgical History: Reports: None Musculoskeletal Surgical History: Reports: Shoulder Surgery Dermatological Surgical History: Reports: None Social & Family History - Family History Family Medical History: No Pertinent Family History Cardiac: Reports: VT Endocrine/Metabolic: Reports: Diabetes, type II - Tobacco Use Tobacco Use Status *Q: Never Tobacco User - Caffeine Use Caffeine Use: Reports: Coffee, Soda, Tea - Recreational Drug Use Recreational Drug Use: No - Living Situation & Occupation Living situation: Reports: Occupation: Employed Review of Systems - Review of Systems Review Of Systems: See Below Constitutional: Reports: Chills. Denies: Fever (Fever chills overnight.), Weakness, Other Eyes: Reports: Glasses Ears: Reports: No Symptoms Nose: Reports: No Symptoms Mouth/Throat: Reports: No Symptoms Respiratory: Reports: No Symptoms Cardiovascular: Reports: Other (Has a pacemaker x13 years left upper anterior chest). Denies: Chest Pain, Edema GI/Abdominal: Reports: Decreased Appetite (Eats only once daily.) Genitourinary: Reports: Other (Nocturia x2 or 3. Urinary frequency) Musculoskeletal: Reports: Neck Pain, Shoulder Pain ( shoulders at times.), Back Pain (Knees hips), Joint Pain Skin: Reports: No Symptoms Neurological: Reports: No Symptoms Psychiatric: Reports: No Symptoms ED EXAM, GENERAL - Physical Exam Exam: See Below Exam Limited By: No Limitations General Appearance: Alert, WD/WN, No Apparent Distress, Other (Flat affect. Temperature is 36.2 degrees. Heart rate 80 and sinus. Respiratory is 18 with O2 sats of 98% room air. BP 139/86.) Eye Exam: Bilateral Eye: Normal Inspection, PERRL Throat/Mouth: Normal Inspection, Normal Lips, Normal Oropharynx, Other Head: Atraumatic (Tongue is mildly dry.), Normocephalic Neck: Normal Inspection. No: Carotid Bruit, Lymphadenopathy (L), Lymphadenopathy (R) Respiratory/Chest: No Respiratory Distress, Lungs Clear, Normal Breath Sounds, No Accessory Muscle Use, Other Cardiovascular: Normal Peripheral Pulses (Pacemaker left upper anterior chest.), No Edema, No Gallop, No Murmur, No Rub, Irregularly Irregular (Fibrillation on the monitor.) Peripheral Pulses: 1+: Posterior Tibial (L), Dorsalis Pedis (L) (Pulses in the left foot are difficult to feel due to edema.), 2+: Carotid (L), Carotid (R), Posterior Tibial (R), Dorsalis Pedis (R) GI/Abdominal: Normal Bowel Sounds, Soft, Non-Tender, No Organomegaly, No Mass, Pelvis Stable, Other (No surgical scars.) (Male) Exam: Other (Patient has marked edema of the entire penile shaft and inability to retract his foreskin. There is also significant edema of the scrotum due to congestive failure.) Back Exam: Normal Inspection, Full Range of Motion. No: CVA Tenderness (L), CVA Tenderness (R) Extremities: Limited Range of Motion, Increased Warmth (Left knee primarily), Other (Right lower extremity appears to be normal with some mild varicosities. Left lower extremity is taut with fluid up to the groin. No inguinal adenopathy appreciated. He has severe erythema of over his knee and both above and below the knee involving the anterior leg. Compatible with cellulitis.) Neurological: Alert, Oriented, CN II-XII Intact, Normal Cognition. No: Normal Gait Psychiatric: Flat Affect Skin Exam: Warm, Dry, Erythema (Left knee and lower leg with cellulitis of the leg.), Increased Warmth (Left knee and lower leg), Other (Patient has skin breakdown over his posterior left heel due to dry skin and I think from chronic edema of the lower extremity.). No: Intact #1 Interpretation EKG Date: 12/21/20 Time: 13:12 Rhythm: A-Fib (With rate of 64 to 146 bpm) Rate (Beats/Min): 91 (Occasional PVCs) [place]: Normal P-Wave: Absent QRS: Other (Intraventricular conduction delay-atypical right bundle branch block pattern. Q waves are evident in V1 and V2 consider old anteroseptal myocardial infarction.) QT: Prolonged (Moderately prolonged) EKG Interpretation Comments: Abnormal ECG Course - Vital Signs Last Recorded V/S: Last Vital Signs Temp 36.2 C 12/21/20 11:42 Pulse 85 12/21/20 14:21 Resp 16 12/21/20 14:21 BP 146/46 H 12/21/20 14:21 Pulse Ox 95 12/21/20 14:21 - Orders/Labs/Meds Orders: Active Orders 24 hr Category Date Time Status BLOOD CULTURE [MREF] Stat Lab 12/21/20 12:20 Received BLOOD CULTURE [MREF] Stat Lab 12/21/20 12:36 Received Dextrose 5%-0.9% NaCl [Dextrose 5%-Normal Saline] 1,000 Med 12/21/20 12:15 Active ml IV ASDIRECTED Blood Culture x2 Reflex Set [OM.PC] Stat Oth 12/21/20 12:13 Ordered Medication Orders Dextrose/Sodium Chloride (Dextrose 5%-Normal Saline) 1,000 mls @ 150 mls/hr IV ASDIRECTED ROBYN Last Admin: 12/21/20 12:42 Dose: 150 mls/hr Documented by: LUTHER Labs: Laboratory Tests 12/21/20 12/21/20 12/21/20 Range/Units 12:20 12:20 12:20 WBC 11.20 H (4.23-9.07) K/mm3 RBC 4.14 L (4.63-6.08) M/mm3 Hgb 11.9 L D (13.7-17.5) gm/dl Hct 37.4 L (40.1-51.0) % MCV 90.3 D (79.0-92.2) fl MCH 28.7 (25.7-32.2) pg MCHC 31.8 L (32.2-35.5) g/dl RDW Std Deviation 50.9 H (35.1-43.9) fL Plt Count 254 D (163-337) K/mm3 MPV 9.4 (9.4-12.3) fl Neutrophils % (Manual) 80 H (40-60) % Band Neutrophils % 0 (0-10) % Lymphocytes % (Manual) 9 L (20-40) % Atypical Lymphs % 0 % Monocytes % (Manual) 10 (2-10) % Eosinophils % (Manual) 1 (0.8-7.0) % Basophils % (Manual) 0 L (0.2-1.2) Platelet Estimate Adequate RBC Morph Comment Normal PT 31.7 H (9.7-12.0) SECONDS INR 3.03 APTT 46.1 H (21.7-31.4) SECONDS Sodium 135 L (136-145) mEq/L Potassium 3.8 (3.5-5.1) mEq/L Chloride 99 (98-107) mEq/L Carbon Dioxide 32 (21-32) mEq/L Anion Gap 7.8 (5-15) BUN 12 (7-18) mg/dL Creatinine 0.9 (0.7-1.3) mg/dL Est Cr Clr Drug Dosing 66.55 mL/min Estimated GFR (MDRD) > 60 (>60) mL/min BUN/Creatinine Ratio 13.3 L (14-18) Glucose 111 H (70-99) mg/dL Lactic Acid (0.4-2.0) mmol/L Calcium 7.8 L (8.5-10.1) mg/dL Magnesium 1.7 L (1.8-2.4) mg/dL Total Bilirubin 1.1 H (0.2-1.0) mg/dL AST 26 (15-37) U/L ALT 20 (16-63) U/L Alkaline Phosphatase 75 (46-116) U/L C-Reactive Protein 12.3 H* (<1.0) mg/dL NT-Pro-B Natriuret Pep (0-450) pg/mL Total Protein 5.0 L (6.4-8.2) g/dl Albumin 1.8 L (3.4-5.0) g/dl Globulin 3.2 gm/dL Albumin/Globulin Ratio 0.6 L (1-2) PSA Screen (0.0-4.0) ng/mL Urine Color (Yellow) Urine Appearance (Clear) Urine pH (5.0-8.0) Ur Specific [place] (1.005-1.030) Urine Protein (Negative) Urine Glucose (UA) (Negative) Urine Ketones (Negative) Urine Occult Blood (Negative) Urine Nitrite (Negative) Urine Bilirubin (Negative) Urine Urobilinogen (0.2-1.0) Ur Leukocyte Esterase (Negative) Urine RBC (0-5) /hpf Urine WBC (0-5) /hpf Ur Squamous Epith Cells (0-5) /hpf Urine Bacteria (FEW) /hpf Urine Mucus (FEW) /hpf SARS-CoV-2 RNA (ZEYAD) (NEGATIVE) 12/21/20 12/21/20 12/21/20 Range/Units 12:20 12:20 12:20 WBC (4.23-9.07) K/mm3 RBC (4.63-6.08) M/mm3 Hgb (13.7-17.5) gm/dl Hct (40.1-51.0) % MCV (79.0-92.2) fl MCH (25.7-32.2) pg MCHC (32.2-35.5) g/dl RDW Std Deviation (35.1-43.9) fL Plt Count (163-337) K/mm3 MPV (9.4-12.3) fl Neutrophils % (Manual) (40-60) % Band Neutrophils % (0-10) % Lymphocytes % (Manual) (20-40) % Atypical Lymphs % % Monocytes % (Manual) (2-10) % Eosinophils % (Manual) (0.8-7.0) % Basophils % (Manual) (0.2-1.2) Platelet Estimate RBC Morph Comment PT (9.7-12.0) SECONDS INR APTT (21.7-31.4) SECONDS Sodium (136-145) mEq/L Potassium (3.5-5.1) mEq/L Chloride (98-107) mEq/L Carbon Dioxide (21-32) mEq/L Anion Gap (5-15) BUN (7-18) mg/dL Creatinine (0.7-1.3) mg/dL Est Cr Clr Drug Dosing mL/min Estimated GFR (MDRD) (>60) mL/min BUN/Creatinine Ratio (14-18) Glucose (70-99) mg/dL Lactic Acid 0.8 (0.4-2.0) mmol/L Calcium (8.5-10.1) mg/dL Magnesium (1.8-2.4) mg/dL Total Bilirubin (0.2-1.0) mg/dL AST (15-37) U/L ALT (16-63) U/L Alkaline Phosphatase (46-116) U/L C-Reactive Protein (<1.0) mg/dL NT-Pro-B Natriuret Pep 4217 H (0-450) pg/mL Total Protein (6.4-8.2) g/dl Albumin (3.4-5.0) g/dl Globulin gm/dL Albumin/Globulin Ratio (1-2) PSA Screen 0.2 (0.0-4.0) ng/mL Urine Color (Yellow) Urine Appearance (Clear) Urine pH (5.0-8.0) Ur Specific [place] (1.005-1.030) Urine Protein (Negative) Urine Glucose (UA) (Negative) Urine Ketones (Negative) Urine Occult Blood (Negative) Urine Nitrite (Negative) Urine Bilirubin (Negative) Urine Urobilinogen (0.2-1.0) Ur Leukocyte Esterase (Negative) Urine RBC (0-5) /hpf Urine WBC (0-5) /hpf Ur Squamous Epith Cells (0-5) /hpf Urine Bacteria (FEW) /hpf Urine Mucus (FEW) /hpf SARS-CoV-2 RNA (ZEYAD) (NEGATIVE) 12/21/20 12/21/20 Range/Units 12:40 12:55 WBC (4.23-9.07) K/mm3 RBC (4.63-6.08) M/mm3 Hgb (13.7-17.5) gm/dl Hct (40.1-51.0) % MCV (79.0-92.2) fl MCH (25.7-32.2) pg MCHC (32.2-35.5) g/dl RDW Std Deviation (35.1-43.9) fL Plt Count (163-337) K/mm3 MPV (9.4-12.3) fl Neutrophils % (Manual) (40-60) % Band Neutrophils % (0-10) % Lymphocytes % (Manual) (20-40) % Atypical Lymphs % % Monocytes % (Manual) (2-10) % Eosinophils % (Manual) (0.8-7.0) % Basophils % (Manual) (0.2-1.2) Platelet Estimate RBC Morph Comment PT (9.7-12.0) SECONDS INR APTT (21.7-31.4) SECONDS Sodium (136-145) mEq/L Potassium (3.5-5.1) mEq/L Chloride (98-107) mEq/L Carbon Dioxide (21-32) mEq/L Anion Gap (5-15) BUN (7-18) mg/dL Creatinine (0.7-1.3) mg/dL Est Cr Clr Drug Dosing mL/min Estimated GFR (MDRD) (>60) mL/min BUN/Creatinine Ratio (14-18) Glucose (70-99) mg/dL Lactic Acid (0.4-2.0) mmol/L Calcium (8.5-10.1) mg/dL Magnesium (1.8-2.4) mg/dL Total Bilirubin (0.2-1.0) mg/dL AST (15-37) U/L ALT (16-63) U/L Alkaline Phosphatase (46-116) U/L C-Reactive Protein (<1.0) mg/dL NT-Pro-B Natriuret Pep (0-450) pg/mL Total Protein (6.4-8.2) g/dl Albumin (3.4-5.0) g/dl Globulin gm/dL Albumin/Globulin Ratio (1-2) PSA Screen (0.0-4.0) ng/mL Urine Color Dark yellow (Yellow) Urine Appearance Clear (Clear) Urine pH 7.0 (5.0-8.0) Ur Specific [place] 1.020 (1.005-1.030) Urine Protein 1+ H (Negative) Urine Glucose (UA) Negative (Negative) Urine Ketones Trace H (Negative) Urine Occult Blood Negative (Negative) Urine Nitrite Negative (Negative) Urine Bilirubin 1+ H (Negative) Urine Urobilinogen 4.0 H (0.2-1.0) Ur Leukocyte Esterase Negative (Negative) Urine RBC 0-5 (0-5) /hpf Urine WBC Not seen (0-5) /hpf Ur Squamous Epith Cells 0-5 (0-5) /hpf Urine Bacteria Many H (FEW) /hpf Urine Mucus Moderate H (FEW) /hpf SARS-CoV-2 RNA (ZEYAD) Negative (NEGATIVE) Meds: Medications Generic Name Dose Route Start Last Admin Trade Name Freq PRN Reason Stop Dose Admin Dextrose/Sodium Chloride 1,000 mls @ 150 mls/hr 12/21/20 12:15 12/21/20 12:42 Dextrose 5%-Normal Saline IV 150 mls/hr ASDIRECTED ROBYN Administration Discontinued Medications Generic Name Dose Route Start Last Admin Trade Name Freq PRN Reason Stop Dose Admin Doxycycline Hyclate 200 mg 12/21/20 13:52 12/21/20 14:25 Doxycycline 100 Mg Cap PO 12/21/20 13:53 200 mg ONETIME ONE Administration Ceftriaxone Sodium 2 gm/ 100 mls @ 200 mls/hr 12/21/20 12:53 12/21/20 13:12 Sodium Chloride IV 12/21/20 13:22 200 mls/hr ONETIME ONE Administration - Radiology Interpretation Free Text/Narrative:: 80-year-old male presents to the ED for evaluation of marked redness and swelling of his left lower extremity. 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 He denies any abrasion or open laceration or wound to his knee. He does admit that he has had an open wound to his left posterior heel with dry skin for a lengthy period of time. He has had it dressed recently. It is oozing serous material. Patient's left knee and lower extremity became markedly erythematous swollen and painful over the last 36 hours. No systemic signs of illness in terms of fever or loss of appetite. He feels he has had a few chills. He has not yet eaten today. This is not nec essarily abnormal for him. Plan a septic work-up will be commenced including lactic acid and blood cultures x2. He will have a Doppler ultrasound of his left lower extremity to rule out DVT. He will be started on Rocephin 2 g IV as soon as blood cultures x2 have been collected. - Re-Assessments/Exams Free Text/Narrative Re-Assessment/Exam: 12/21/20 13:25 White count is mildly elevated at 11.20 with a left shift of 80% neutrophils. Hemoglobin is slightly low at 11.9 with hematocrit of 37.4. Platelet count 254,000. PT is 31.7 with an INR of 3.03 mildly elevated and PTT is elevated at 46.1. 12/21/20 13:37 Sodium is 135 with a potassium of 3.8. Chloride 99 with a bicarb of 32. Anion gap is 7.8. BUN is 12 with a creatinine of 0.9 and a GFR greater than 60. Glucose is 111. Lactic acid is 0.8. Calcium is 7.8. Magnesium slightly low at 1.7. Total bilirubin minimally elevated at 1.1. Remainder the liver function studies are normal. C-reactive protein is elevated at 12.3. BNP is 4217. Total protein is 5.0 with a albumin fraction of 1.8. Very low. Globulin is 3.2. PSA screen was 0.2. Lactic acid is 0.8. 12/21/20 14:16 I have discussed the findings with the patient and he would prefer to try things at home and come back tomorrow as an outpatient for another dose of Rocephin IV. In the meantime I will start him on doxycycline 200 mg now then 100 mg twice daily for the next 10 days. He can use Tylenol 650 mg every 6 hours as needed for pain relief or fever relief. He can always return sooner if he is not getting better. Note will be given to excuse him from the workplace until at least Saturday next week. I would suggest follow-up with the [place] [facility] on Saturday to see if he is ready to return to work. I will review his knee tomorrow in the ED in regards to response to an oral and IV antibiotic therapy. He is in mild to moderate congestive heart failure with a BNP of 4217. Doppler ultrasound of his left lower extremity revealed good augmentation and flow without any evidence of DVT. I am going to increase his Aldactone to 25 mg twice daily in the hopes of creating further diuresis. His potassium today is 3.8 and his GFR is greater than 60. I will make no changes to his Coumadin dosages at this time. He is due for 10 mg tablet tomorrow which he will take tomorrow evening. He took his 5 mg of Coumadin earlier this morning. He will be advised to have his PT and INR checked 4 days after he is finished his antibiotic therapy. Departure - Departure Time of Disposition: 14:20 Disposition: Home, Self-Care 01 Condition: Fair Clinical Impression: Cellulitis of left leg without foot, Chronic atrial fibrillation, Supratherapeutic international normalized ratio (INR) Congestive heart failure Qualifiers: Heart failure type: diastolic Heart failure chronicity: chronic Qualified Code(s): I50.32 - Chronic diastolic (congestive) heart failure - Discharge Information *PRESCRIPTION DRUG MONITORING PROGRAM REVIEWED*: Not Applicable *COPY OF PRESCRIPTION DRUG MONITORING REPORT IN PATIENT ZHEN: Not Applicable Prescriptions: Spironolactone [Aldactone] 100 mg PO BID #60 tablet Doxycycline [Vibra-Tabs] 100 mg PO Q12HR #20 tab Instructions: Cellulitis, Adult, Rdwy-kg-Loth Referrals: Ricardo Denny MD [Primary Care Provider] - Forms: ED Department Discharge Additional Instructions: Evaluation in the emergency room today in regards to development of infection under the skin which we call cellulitis left lower leg particularly over the knee. Recent trauma to the knee in the workplace 2 days ago. Also breakdown of skin on the left heel which also could be a source to introduce infection into the left lower leg. Lab tests reveal a mildly elevated white blood cell count and elevated markers for inflammation compatible with infection. You were treated with a dose of intravenous antibiotic Rocephin 2 g IV and oral doxycycline 200 mg by mouth. You will need to take your next dose of doxycycline tablet at bedtime tonight with a little something in your stomach.. Doxycycline should be taken twice daily usually morning and after supper for the next 10 days to clear up infection left leg completely. You will be discharged home today and your saline lock will be left in place. You are to return to the hospital around 1330 hrs. tomorrow for repeat intravenous injection of Rocephin 2 g to ensure rapid improvement in the infection left lower leg. It is okay to use Tylenol 650 mg every 4 hours to relieve pain and inflammation and/or fever. Coumadin time today is mildly elevated at 3.0. You are already took your Coumadin dosage for today. The elevated Coumadin time is likely due to the underlying infection. Therefore at this time I am not going to recommend any changes or reduction in dosage of Coumadin. However PT/INR needs to be checked 4 days after you have completed your oral antibiotics. In regards to your heart failure I would suggest an increase in dosage of your Aldactone or spironolactone to 25 mg tablet twice daily which helps your Lasix work better to help reduce some of the retention of fluid in your lower extremities. Sepsis Event Note (ED) - Focused Exam Vital Signs: Vital Signs Temp Pulse Resp BP Pulse Ox 12/21/20 14:21 85 16 146/46 H 95 12/21/20 12:44 84 16 136/72 97 12/21/20 12:00 108 H 16 115/75 95 12/21/20 11:42 36.2 C 80 18 139/86 98 - My Orders Last 24 Hours: My Active Orders 12/21/20 12:13 Blood Culture x2 Reflex Set [OM.PC] Stat 12/21/20 12:15 Dextrose 5%-0.9% NaCl [Dextrose 5%-Normal Saline] 1,000 ml IV ASDIRECTED 12/21/20 12:20 BLOOD CULTURE [MREF] Stat 12/21/20 12:36 BLOOD CULTURE [MREF] Stat - Assessment/Plan Last 24 Hours: My Active Orders 12/21/20 12:13 Blood Culture x2 Reflex Set [OM.PC] Stat 12/21/20 12:15 Dextrose 5%-0.9% NaCl [Dextrose 5%-Normal Saline] 1,000 ml IV ASDIRECTED 12/21/20 12:20 BLOOD CULTURE [MREF] Stat 12/21/20 12:36 BLOOD CULTURE [MREF] Stat
[2020-12-21] MEDS ORDERED: cefTRIAXone 2 GM in Sodium Chloride 0.9% 100 ML IV ONE (12:53)
[2020-12-21] MEDS ORDERED: Doxycycline 100 MG Cap PO ONE (13:52)
--- NOTE | 2020-12-21 14:15 | US ---
Left lower extremity deep venous ultrasound: Duplex and color Doppler evaluation was obtained of the left common femoral, proximal greater saphenous, superficial femoral, popliteal, posterior tibial and peroneal veins. Right common femoral vein was also evaluated. Comparison: No prior venous imaging is available. Findings: Normal phasic flow, augmentation and compression are seen. Soft tissue edema is seen within the lower left extremity. Impression: 1. No findings of deep venous thrombosis within the left lower extremity or within the right common femoral vein. 2. Mild subcutaneous edema is seen. Diagnostic code #2
[2020-12-21 14:22] VITALS: BP 146/46; PULSE 85
== END 2020-12-21 15:35 | disposition home or self-care (01) ==
LOC: JD.ED 11:21
DX: L03.116 Cellulitis of left lower limb (principal); I48.20 Chronic atrial fibrillation, unspecified; I11.0 Hypertensive heart disease with heart failure; I50.32 Chronic diastolic (congestive) heart failure; R79.1 Abnormal coagulation profile; I25.2 Old myocardial infarction; Z86.73 Personal history of transient ischemic attack (TIA), and cerebral infarction without residual deficits; Z95.1 Presence of aortocoronary bypass graft; Z88.8 Allergy status to other drugs, medicaments and biological substances; Z20.822 Contact with and (suspected) exposure to COVID-19
CPT/HCPCS: 36415; 80053; 81001; 83605; 83735; 83880; 85007; 85027; 85610; 85730; 86140; 87040; 87635; 93005; 93971; 96365; 99284; A9270; G0103; J0696; J7042; 93010; U0002

== ENCOUNTER 2021-08-22 15:56 | Emergency (ER) | payer MEDICARE, OTHER ==
[2021-08-22 16:47] VITALS: BP 118/74; PULSE 82
[2021-08-22] MEDS ORDERED: Sodium Chloride 0.9% 10 ML Syringe FLUSH PRN (18:18)
== END 2021-08-22 18:55 | disposition left against medical advice (07) ==
LOC: JD.ED 15:56
DX: D52.9 Folate deficiency anemia, unspecified (principal); I48.91 Unspecified atrial fibrillation; I10 Essential (primary) hypertension; I25.2 Old myocardial infarction; K21.9 Gastro-esophageal reflux disease without esophagitis; Z95.1 Presence of aortocoronary bypass graft; Z86.73 Personal history of transient ischemic attack (TIA), and cerebral infarction without residual deficits; Z79.01 Long term (current) use of anticoagulants; Z79.899 Other long term (current) drug therapy
CPT/HCPCS: 99283; 99284

== ENCOUNTER 2021-08-25 15:51 | Inpatient (IN) | payer MEDICARE, OTHER ==
[2021-08-25] MEDS ORDERED: oxyCODONE 5 MG Tab PO PRN (18:02)
[2021-08-25] MEDS ORDERED: Acetaminophen 325 MG Tab PO PRN (18:02)
[2021-08-25] MEDS ORDERED: Docusate Sodium 100 MG Cap PO PRN (18:02)
[2021-08-25] MEDS ORDERED: Sodium Chloride 0.9% 250 ML IV SCH (20:30)
[2021-08-26] MEDS: Sodium Chloride 0.9% 1,000 ML IV SCH ×2 (05:11→17:12)
[2021-08-26] MEDS ORDERED: Warfarin 5 MG Tab PO SCH (06:45)
[2021-08-26] MEDS: Diltiazem 240 MG Cap.ER PO SCH (08:17)
[2021-08-26] MEDS: Furosemide 80 MG Tab PO SCH (08:17)
[2021-08-26] MEDS: Docusate Sodium 100 MG Cap PO SCH ×2 (08:17→21:52)
[2021-08-26] MEDS: Propranolol 40 MG Tab PO SCH ×2 (08:18→22:20)
[2021-08-26] MEDS: atorvaSTATin 20 MG Tab PO SCH (08:18)
[2021-08-26] MEDS: Cholecalciferol (Vitamin D3) 25 MCG Tab PO SCH (08:19)
[2021-08-26] MEDS: Spironolactone 25 MG Tab PO SCH (08:19)
[2021-08-26] MEDS ORDERED: Simvastatin 20 MG Tab PO SCH (09:00)
[2021-08-27] MEDS: Temazepam 7.5 MG Cap PO PRN ×2 (02:35→20:56)
[2021-08-27] MEDS: Sodium Chloride 0.9% 1,000 ML IV SCH (05:35)
[2021-08-27] MEDS: Docusate Sodium 100 MG Cap PO SCH ×2 (09:23→20:57)
[2021-08-27] MEDS: Propranolol 40 MG Tab PO SCH ×2 (09:23→20:56)
[2021-08-27] MEDS: Furosemide 80 MG Tab PO SCH (09:23)
[2021-08-27] MEDS: Cholecalciferol (Vitamin D3) 25 MCG Tab PO SCH (09:23)
[2021-08-27] MEDS: Spironolactone 25 MG Tab PO SCH (09:23)
[2021-08-27] MEDS: atorvaSTATin 20 MG Tab PO SCH (09:24)
[2021-08-27] MEDS: Diltiazem 240 MG Cap.ER PO SCH (09:24)
[2021-08-27] MEDS: Potassium Chloride 20 MEQ Tab.ER PO SCH ×3 (15:01→19:15)
[2021-08-27] MEDS ORDERED: Warfarin 5 MG Tab PO ONE (18:00)
[2021-08-27] MEDS ORDERED: Warfarin 10 MG Tab PO ONE (18:00)
[2021-08-28] MEDS ORDERED: Warfarin 5 MG Tab PO SCH ×2 (06:34→18:00)
[2021-08-28] MEDS ORDERED: Vitamin B Complex With Vitamin C Cap PO SCH (09:00)
[2021-08-28] MEDS ORDERED: Iron Polysaccharides Complex 150 MG Cap PO SCH (09:00)
[2021-08-28] MEDS: Propranolol 40 MG Tab PO SCH (09:55)
[2021-08-28] MEDS: Diltiazem 240 MG Cap.ER PO SCH (09:56)
[2021-08-28] MEDS: Furosemide 80 MG Tab PO SCH (09:56)
[2021-08-28] MEDS: Cholecalciferol (Vitamin D3) 25 MCG Tab PO SCH (09:58)
[2021-08-28] MEDS: Docusate Sodium 100 MG Cap PO SCH (09:59)
[2021-08-28] MEDS: Spironolactone 25 MG Tab PO SCH (09:59)
[2021-08-28] MEDS: atorvaSTATin 20 MG Tab PO SCH (10:03)
[2021-08-28 17:43] VITALS: BP 116/85; PULSE 58
== END 2021-08-28 17:20 | disposition home or self-care (01) | DRG 812 ==
LOC: JD.ED 15:51 → JD.MS 18:02 → JD.OB 08-26 19:11 → UNDODISIN 08-28 17:20
PROVIDERS: ADMIT Internal Medicine; ATTEND Internal Medicine
PROC: 30233N1 Transfusion of Nonautologous Red Blood Cells into Peripheral Vein, Percutaneous Approach (ICD-10-PCS; principal; 2021-08-25)
PROC: 30233N1 Transfusion of Nonautologous Red Blood Cells into Peripheral Vein, Percutaneous Approach (ICD-10-PCS; 2021-08-26)
DX: D50.9 Iron deficiency anemia, unspecified (principal); I48.20 Chronic atrial fibrillation, unspecified; I50.42 Chronic combined systolic (congestive) and diastolic (congestive) heart failure; K92.1 Melena; K59.09 Other constipation; D52.9 Folate deficiency anemia, unspecified; E87.6 Hypokalemia; I11.0 Hypertensive heart disease with heart failure; J44.9 Chronic obstructive pulmonary disease, unspecified; K21.9 Gastro-esophageal reflux disease without esophagitis; I25.2 Old myocardial infarction; Z95.1 Presence of aortocoronary bypass graft; Z86.73 Personal history of transient ischemic attack (TIA), and cerebral infarction without residual deficits; Z95.810 Presence of automatic (implantable) cardiac defibrillator; Z90.49 Acquired absence of other specified parts of digestive tract; Z79.01 Long term (current) use of anticoagulants; Z88.8 Allergy status to other drugs, medicaments and biological substances
CPT/HCPCS: 36415; 36430; 80053; 82607; 82728; 82746; 83540; 84466; 84484; 85018; 85025; 85610; 85730; 86850; 86900; 86901; 86922; 93005; 99285-25; A9270-GY; J7030; J7050; P9016

== ENCOUNTER 2021-10-13 12:15 | Inpatient (IN) | payer MEDICARE, OTHER ==
[2021-10-13] MEDS ORDERED: Sodium Chloride 0.9% 10 ML Syringe FLUSH PRN (12:40)
[2021-10-13] MEDS ORDERED: Furosemide 40 MG/4 ML VIAL IVPUSH ONE (12:43)
[2021-10-13 13:55] LABS: ESTIMATED GFR 86 mL/min (>60)
[2021-10-13] MEDS ORDERED: Polyethylene Glycol 3350 Powder 17 GM Packet PO PRN (14:43)
[2021-10-13] MEDS ORDERED: Ondansetron 4 MG/2 ML SDV IV PRN (14:43)
[2021-10-13] MEDS ORDERED: Acetaminophen 325 MG Tab PO PRN (14:43)
[2021-10-13] MEDS ORDERED: Docusate Sodium 100 MG Cap PO PRN (14:43)
[2021-10-13] MEDS ORDERED: Sodium Chloride 0.9% 1,000 ML IV SCH (16:15)
[2021-10-13] MEDS ORDERED: Ondansetron 4 MG/2 ML SDV IVPUSH PRN (16:23)
[2021-10-13] MEDS ORDERED: Warfarin 2.5 MG Tab PO SCH (18:00)
[2021-10-13] MEDS: Potassium Chloride 20 MEQ Tab.ER PO SCH (20:28)
[2021-10-14] MEDS ORDERED: Docusate Sodium 100 MG Cap PO PRN (06:18)
[2021-10-14] MEDS ORDERED: Magnesium Sulfate/Water 2 GM in Premix Bag 1 BAG IV ONE (06:19)
[2021-10-14] MEDS: Furosemide 40 MG/4 ML VIAL IVPUSH SCH ×2 (06:30→15:26)
[2021-10-14] MEDS: atorvaSTATin 20 MG Tab PO SCH (08:54)
[2021-10-14] MEDS: Diltiazem 240 MG Cap.ER PO SCH (08:54)
[2021-10-14] MEDS: Potassium Chloride 20 MEQ Tab.ER PO SCH ×2 (08:54→20:54)
[2021-10-14] MEDS: Propranolol 40 MG Tab PO SCH ×2 (08:54→20:54)
[2021-10-14] MEDS: Ferrous Sulfate 324 MG Tab.EC PO SCH (09:25)
[2021-10-14] MEDS ORDERED: Warfarin 5 MG Tab PO SCH (18:00)
[2021-10-14] MEDS ORDERED: Warfarin 5 MG Tab PO ONE (18:45)
[2021-10-15] MEDS: Bumetanide 1 MG Tab PO SCH (08:18)
[2021-10-15] MEDS: Potassium Chloride 20 MEQ Tab.ER PO SCH ×2 (08:18→20:08)
[2021-10-15] MEDS: Ferrous Sulfate 324 MG Tab.EC PO SCH (08:20)
[2021-10-15] MEDS: atorvaSTATin 20 MG Tab PO SCH (08:21)
[2021-10-15] MEDS: Propranolol 40 MG Tab PO SCH ×2 (08:23→20:08)
[2021-10-15] MEDS: Diltiazem 240 MG Cap.ER PO SCH (08:23)
[2021-10-15] MEDS ORDERED: Bumetanide 1 MG Tab PO ONE (14:00)
[2021-10-15] MEDS ORDERED: Warfarin 5 MG Tab PO ONE (18:00)
[2021-10-16 07:44] VITALS: BP 114/65; PULSE 105
[2021-10-16] MEDS: Propranolol 40 MG Tab PO SCH (09:21)
[2021-10-16] MEDS: Diltiazem 240 MG Cap.ER PO SCH (09:21)
[2021-10-16] MEDS: atorvaSTATin 20 MG Tab PO SCH (09:21)
[2021-10-16] MEDS: Bumetanide 1 MG Tab PO SCH (09:21)
[2021-10-16] MEDS: Ferrous Sulfate 324 MG Tab.EC PO SCH (09:22)
[2021-10-16] MEDS: Potassium Chloride 20 MEQ Tab.ER PO SCH (09:22)
== END 2021-10-16 10:30 | disposition home or self-care (01) | DRG 291 ==
LOC: JD.ED 12:15 → JD.MS 14:10
PROVIDERS: ADMIT Internal Medicine; ATTEND Internal Medicine
PROC: 30233N1 Transfusion of Nonautologous Red Blood Cells into Peripheral Vein, Percutaneous Approach (ICD-10-PCS; principal; 2021-10-13)
DX: I11.0 Hypertensive heart disease with heart failure (principal); I50.43 Acute on chronic combined systolic (congestive) and diastolic (congestive) heart failure; E87.1 Hypo-osmolality and hyponatremia; R06.00 Dyspnea, unspecified; I48.91 Unspecified atrial fibrillation; I48.20 Chronic atrial fibrillation, unspecified; E78.5 Hyperlipidemia, unspecified; D50.9 Iron deficiency anemia, unspecified; E87.6 Hypokalemia; K21.9 Gastro-esophageal reflux disease without esophagitis; D64.9 Anemia, unspecified; N50.89 Other specified disorders of the male genital organs; Z79.899 Other long term (current) drug therapy; Z95.1 Presence of aortocoronary bypass graft; Z90.49 Acquired absence of other specified parts of digestive tract; Z95.0 Presence of cardiac pacemaker; Z79.01 Long term (current) use of anticoagulants; I25.2 Old myocardial infarction; Z86.73 Personal history of transient ischemic attack (TIA), and cerebral infarction without residual deficits; Z88.8 Allergy status to other drugs, medicaments and biological substances; Z87.01 Personal history of pneumonia (recurrent)
CPT/HCPCS: 36415; 71045; 80053; 83880; 84484; 85025; 85610; 86850; 86900; 86901; 86922; 93005; 96374; 99285; J1940; J3490; 36430; 80048; 83735; 85027; 93306; 97116-GP; 97161-GP; A9270-GY; J3475; P9016

== ENCOUNTER 2021-11-02 14:42 | Emergency (ER) | payer MEDICARE, OTHER ==
[2021-11-02] MEDS ORDERED: Sodium Chloride 0.9% 10 ML Syringe FLUSH PRN (16:55)
[2021-11-02] MEDS ORDERED: Sodium Chloride 0.9% 250 ML ONE (22:33)
[2021-11-03] MEDS ORDERED: Furosemide 40 MG/4 ML VIAL IVPUSH ONE (00:40)
[2021-11-03 04:49] VITALS: BP 107/61; PULSE 86
== END 2021-11-03 07:10 | disposition home or self-care (01) ==
LOC: JD.ED 14:42
DX: D50.9 Iron deficiency anemia, unspecified (principal); I48.91 Unspecified atrial fibrillation; I10 Essential (primary) hypertension; I25.2 Old myocardial infarction; Z88.8 Allergy status to other drugs, medicaments and biological substances; Z79.899 Other long term (current) drug therapy; Z79.01 Long term (current) use of anticoagulants; Z90.49 Acquired absence of other specified parts of digestive tract
CPT/HCPCS: 36415; 36430; 80053; 83880; 85025; 85610; 85730; 86850; 86900; 86901; 86922; 96374; 99284; J1940; J3490; P9016; 99283

== ENCOUNTER 2021-11-27 17:20 | Inpatient (IN) | payer MEDICARE, OTHER ==
[2021-11-27] MEDS ORDERED: Iopamidol 755 Mg/ML 100 ML Bottle IVPUSH ONE (18:23)
[2021-11-27] MEDS ORDERED: Sodium Chloride 0.9% 10 ML Syringe FLUSH PRN (18:23)
[2021-11-27] MEDS ORDERED: Sodium Chloride 0.9% 100 ML IV SCH (18:30)
[2021-11-28] MEDS ORDERED: Sodium Chloride 0.9% 10 ML Syringe FLUSH PRN (02:18)
[2021-11-28] MEDS ORDERED: Ondansetron 4 MG/2 ML SDV IV PRN (07:45)
[2021-11-28] MEDS ORDERED: Magnesium Sulfate/Water 4 GM in Premix Bag 1 BAG IV ONE (08:00)
[2021-11-28] MEDS ORDERED: Dextrose 5%-Lact Ringers w/KCl 1,000 ML IV SCH (08:30)
[2021-11-28] MEDS ORDERED: Metoprolol Tartrate 5 MG/5 ML SDV IVPUSH PRN (08:30)
[2021-11-28] MEDS: Potassium Chloride 10 MEQ in Premix Bag 1 BAG IV SCH ×4 (09:53→13:09)
[2021-11-28] MEDS: Heparin Sodium 5,000 Units/ML Vial SUBCUT SCH ×2 (09:57→18:04)
[2021-11-28] MEDS: Docusate Sodium 100 MG Cap PO SCH (14:19)
[2021-11-29] MEDS: Heparin Sodium 5,000 Units/ML Vial SUBCUT SCH ×2 (01:43→09:47)
[2021-11-29] MEDS ORDERED: Docusate Sodium 100 MG Cap PO SCH (09:00)
[2021-11-29] MEDS: Pantoprazole 40 MG Tab.CR PO SCH (09:53)
[2021-11-29] MEDS: Docusate Sodium 100 MG Cap PO SCH (09:54)
[2021-11-29] MEDS: Diltiazem 240 MG Cap.ER PO SCH (09:54)
[2021-11-29] MEDS: Bumetanide 1 MG Tab PO SCH ×2 (09:54→22:15)
[2021-11-29] MEDS: Ferrous Sulfate 324 MG Tab.EC PO SCH (09:54)
[2021-11-29] MEDS: Spironolactone 25 MG Tab PO SCH (09:54)
[2021-11-29] MEDS: Potassium Chloride 20 MEQ Tab.ER PO SCH ×4 (09:54→22:24)
[2021-11-29] MEDS: Rosuvastatin 10 MG Tab PO SCH (22:15)
[2021-11-30] MEDS: Diltiazem 240 MG Cap.ER PO SCH (08:52)
[2021-11-30] MEDS: Potassium Chloride 20 MEQ Tab.ER PO SCH ×4 (08:52→20:01)
[2021-11-30] MEDS: Docusate Sodium 100 MG Cap PO SCH (08:52)
[2021-11-30] MEDS: Bumetanide 1 MG Tab PO SCH ×2 (08:52→20:01)
[2021-11-30] MEDS: Spironolactone 25 MG Tab PO SCH (08:52)
[2021-11-30] MEDS: Ferrous Sulfate 324 MG Tab.EC PO SCH (08:53)
[2021-11-30] MEDS: Pantoprazole 40 MG Tab.CR PO SCH (08:53)
[2021-11-30] MEDS ORDERED: Magnesium Sulfate/Water 2 GM/50 ML BAG IV ONE (09:00)
[2021-11-30] MEDS ORDERED: Sodium Chloride 0.9% 250 ML IV SCH (12:45)
[2021-11-30] MEDS: Rosuvastatin 10 MG Tab PO SCH (20:01)
[2021-12-01] MEDS: Spironolactone 25 MG Tab PO SCH (08:48)
[2021-12-01] MEDS: Docusate Sodium 100 MG Cap PO SCH (08:49)
[2021-12-01] MEDS: Bumetanide 1 MG Tab PO SCH ×2 (08:49→21:13)
[2021-12-01] MEDS: Ferrous Sulfate 324 MG Tab.EC PO SCH (08:49)
[2021-12-01] MEDS: Diltiazem 240 MG Cap.ER PO SCH (08:49)
[2021-12-01] MEDS: Potassium Chloride 20 MEQ Tab.ER PO SCH ×4 (08:49→21:13)
[2021-12-01] MEDS: Pantoprazole 40 MG Tab.CR PO SCH (08:49)
[2021-12-01] MEDS ORDERED: Magnesium Sulfate/Water 2 GM in Premix Bag 1 BAG IV ONE (09:30)
[2021-12-01] MEDS ORDERED: QUEtiapine 25 MG Tab PO ONE (15:30)
[2021-12-01] MEDS ORDERED: QUEtiapine 25 MG Tab PO SCH (21:00)
[2021-12-01] MEDS: Rosuvastatin 10 MG Tab PO SCH (21:13)
[2021-12-02] MEDS: Bumetanide 1 MG Tab PO SCH ×2 (08:12→20:53)
[2021-12-02] MEDS: Docusate Sodium 100 MG Cap PO SCH (08:12)
[2021-12-02] MEDS: Ferrous Sulfate 324 MG Tab.EC PO SCH (08:12)
[2021-12-02] MEDS: Potassium Chloride 20 MEQ Tab.ER PO SCH ×4 (08:12→20:53)
[2021-12-02] MEDS: Spironolactone 25 MG Tab PO SCH (08:12)
[2021-12-02] MEDS: Diltiazem 240 MG Cap.ER PO SCH (08:12)
[2021-12-02] MEDS: Pantoprazole 40 MG Tab.CR PO SCH (08:12)
[2021-12-02] MEDS: Magnesium Oxide 400 MG Tab PO SCH (08:12)
[2021-12-02] MEDS ORDERED: QUEtiapine 25 MG Tab PO PRN (09:00)
[2021-12-02] MEDS: Rosuvastatin 10 MG Tab PO SCH (20:53)
[2021-12-03] MEDS: Potassium Chloride 20 MEQ Tab.ER PO SCH ×4 (08:32→21:05)
[2021-12-03] MEDS: Ferrous Sulfate 324 MG Tab.EC PO SCH (08:32)
[2021-12-03] MEDS: Bumetanide 1 MG Tab PO SCH ×2 (08:32→21:05)
[2021-12-03] MEDS: Pantoprazole 40 MG Tab.CR PO SCH (08:32)
[2021-12-03] MEDS: Magnesium Oxide 400 MG Tab PO SCH (08:32)
[2021-12-03] MEDS: Diltiazem 240 MG Cap.ER PO SCH (08:33)
[2021-12-03] MEDS: Docusate Sodium 100 MG Cap PO SCH (08:33)
[2021-12-03] MEDS: Spironolactone 25 MG Tab PO SCH (08:33)
[2021-12-03] MEDS: Rosuvastatin 10 MG Tab PO SCH (21:05)
[2021-12-04] MEDS: Docusate Sodium 100 MG Cap PO SCH (08:23)
[2021-12-04] MEDS: Potassium Chloride 20 MEQ Tab.ER PO SCH ×2 (08:23→14:19)
[2021-12-04] MEDS: Diltiazem 240 MG Cap.ER PO SCH (08:23)
[2021-12-04] MEDS: Spironolactone 25 MG Tab PO SCH (08:23)
[2021-12-04] MEDS: Ferrous Sulfate 324 MG Tab.EC PO SCH (08:23)
[2021-12-04] MEDS: Pantoprazole 40 MG Tab.CR PO SCH (08:23)
[2021-12-04] MEDS: Bumetanide 1 MG Tab PO SCH ×2 (08:23→20:30)
[2021-12-04] MEDS: Magnesium Oxide 400 MG Tab PO SCH (08:23)
[2021-12-04] MEDS: Potassium Bicarbonate/Cit Ac 20 MEQ Effervescent Tab PO SCH ×3 (14:57→20:31)
[2021-12-04] MEDS: Rosuvastatin 10 MG Tab PO SCH (20:31)
[2021-12-04] MEDS: Acetaminophen 325 MG Tab PO PRN (21:11)
[2021-12-05] MEDS ORDERED: Magnesium Hydroxide 400 MG/5 ML Susp 30 ML Cup PO ONE (02:00)
[2021-12-05] MEDS: Diltiazem 240 MG Cap.ER PO SCH (08:17)
[2021-12-05] MEDS: Docusate Sodium 100 MG Cap PO SCH (08:21)
[2021-12-05] MEDS: Pantoprazole 40 MG Tab.CR PO SCH (08:22)
[2021-12-05] MEDS: Ferrous Sulfate 324 MG Tab.EC PO SCH (08:22)
[2021-12-05] MEDS: Spironolactone 25 MG Tab PO SCH (08:25)
[2021-12-05] MEDS: Bumetanide 1 MG Tab PO SCH ×2 (08:26→20:43)
[2021-12-05] MEDS: Magnesium Oxide 400 MG Tab PO SCH (08:28)
[2021-12-05] MEDS: Potassium Bicarbonate/Cit Ac 20 MEQ Effervescent Tab PO SCH ×4 (08:32→20:40)
[2021-12-05] MEDS ORDERED: Melatonin 3 MG Tab PO PRN (19:41)
[2021-12-05] MEDS: Rosuvastatin 10 MG Tab PO SCH (20:40)
[2021-12-05] MEDS: Acetaminophen 325 MG Tab PO PRN (20:41)
[2021-12-06] MEDS: Acetaminophen 325 MG Tab PO PRN (01:31)
[2021-12-06] MEDS ORDERED: Bisacodyl 10 MG Supp RECTAL ONE (06:00)
[2021-12-06] MEDS: Bumetanide 1 MG Tab PO SCH (09:26)
[2021-12-06] MEDS: Ferrous Sulfate 324 MG Tab.EC PO SCH (09:27)
[2021-12-06] MEDS: Pantoprazole 40 MG Tab.CR PO SCH (09:27)
[2021-12-06] MEDS: Diltiazem 240 MG Cap.ER PO SCH (09:27)
[2021-12-06] MEDS: Docusate Sodium 100 MG Cap PO SCH (09:27)
[2021-12-06] MEDS: Magnesium Oxide 400 MG Tab PO SCH (09:27)
[2021-12-06] MEDS: Spironolactone 25 MG Tab PO SCH (09:27)
[2021-12-06] MEDS: Potassium Bicarbonate/Cit Ac 20 MEQ Effervescent Tab PO SCH ×2 (09:27→13:04)
[2021-12-06 11:52] VITALS: BP 126/92; PULSE 81
== END 2021-12-06 12:57 | DRG 65 ==
LOC: JD.ED 17:20 → JD.MS 22:42
PROVIDERS: ADMIT Hospitalist; ATTEND Hospitalist
PROC: 30233N1 Transfusion of Nonautologous Red Blood Cells into Peripheral Vein, Percutaneous Approach (ICD-10-PCS; principal; 2021-11-30)
DX: R41.82 Altered mental status, unspecified (principal); I63.9 Cerebral infarction, unspecified; E87.1 Hypo-osmolality and hyponatremia; I48.91 Unspecified atrial fibrillation; D62 Acute posthemorrhagic anemia; I10 Essential (primary) hypertension; I48.20 Chronic atrial fibrillation, unspecified; I50.42 Chronic combined systolic (congestive) and diastolic (congestive) heart failure; E87.6 Hypokalemia; E78.5 Hyperlipidemia, unspecified; R33.9 Retention of urine, unspecified; K21.9 Gastro-esophageal reflux disease without esophagitis; D64.9 Anemia, unspecified; I11.0 Hypertensive heart disease with heart failure; E83.42 Hypomagnesemia; R47.01 Aphasia; R73.03 Prediabetes; D50.9 Iron deficiency anemia, unspecified; Z66 Do not resuscitate; Z20.822 Contact with and (suspected) exposure to COVID-19; R29.810 Facial weakness; Z79.82 Long term (current) use of aspirin; Z87.19 Personal history of other diseases of the digestive system; Z86.73 Personal history of transient ischemic attack (TIA), and cerebral infarction without residual deficits; Z86.79 Personal history of other diseases of the circulatory system; Z95.2 Presence of prosthetic heart valve; I25.2 Old myocardial infarction; Z92.89 Personal history of other medical treatment; Z95.0 Presence of cardiac pacemaker; Z95.1 Presence of aortocoronary bypass graft; Z79.899 Other long term (current) drug therapy; Z88.8 Allergy status to other drugs, medicaments and biological substances; R29.724 NIHSS score 24
CPT/HCPCS: 36415; 36430; 70450; 70450-26; 70496; 70496-26; 70498; 70498-26; 71045; 71045-26; 73110-26-RT; 73110-RT; 80048; 80053; 80061; 80306; 80307; 81001; 82550; 82947; 83735; 83880; 84443; 84484; 85014; 85018; 85025; 85610; 85730; 86850; 86900; 86901; 86922; 87040; 92526-GN; 92610-GN; 93005; 93010; 97110-GO; 97110-GP; 97112-GP; 97162-GP; 97166-GO; 97530-GO; 97530-GP; 97535-GO; 99285; A9270-GY; J1644; J3475; J3480; J3490; J7030; P9016; Q9967; U0002